=== PATIENT | female | born 1950 | race African-American/Black ===

== ENCOUNTER 2016-10-24 06:16 | Day surgery (SDC) | payer MEDICARE, OTHER ==
[2016-10-24] VITALS (18 sets, daily range): BP systolic 98–140; BP diastolic 60–87; PULSE 76–99; RESP 16–27; Ht 167.6 cm; Wt 56.0 kg
[~2016-10-24] VITALS: Ht 167.6 cm; Wt 56.0 kg
[~2016-10-24 06:16] MED LIST: ATOR20TA17 PO; BACTDS PO; CAR120SR PO; CEPH-443 PO; IBUP-1542 PO; IPRA14.76 IH; NORT25CA PO; OXYC-281 PO; TRIF5TAB7 PO; [UNRECOGNIZED DRUG - OTHER]
[2016-10-24] MEDS ORDERED: TRIF10TA PO (07:11)
[2016-10-24] MEDS ORDERED: LORA1TAB PO (07:14)
[2016-10-24] MEDS ORDERED: NORT25CA PO (07:15)
[2016-10-24] MEDS ORDERED: BENZ2TAB37 PO (07:15)
[2016-10-24] MEDS ORDERED: SER INH (07:16)
[2016-10-24] MEDS ORDERED: TIOT18CA INHALATION (07:16)
[2016-10-24] MEDS ORDERED: ALBU8.5H3 INH (07:16)
--- NOTE | 2016-10-24 08:57 | RADRPT ---
PROCEDURE: XR Chest. CLINICAL INDICATION: Preoperative. TECHNIQUE: Single frontal chest x-ray. COMPARISON: 10/28/2014 FINDINGS: There is a right apical pleural and parenchymal scarring. There is associated mild right-sided trac heal deviation and superior hilar retraction unchanged since previous. Remainder of the lungs are c lear.. .. The cardiomediastinal silhouette is unremarkable. The osseous structures are intact. IMPRESSION: No acute cardiopulmonary disease. Chronic right apical pleural and parenchymal scarring with hilar retraction and right tracheal devia tion unchanged. RPTAT: RR .Darron Tripathi MD, Date Time Electronically viewed and signed by .Darron Tripathi MD, on 10/24/2016 08:57 .L/
[2016-10-24] MEDS ORDERED: SOD CHLORIDE 0.45% 1,000 ML IV SCH (09:30)
[2016-10-24] MEDS ORDERED: DIAZEPAM 5 MG TAB PO SCH (09:30)
[2016-10-24] MEDS ORDERED: FAMOTIDINE 20 MG TAB PO SCH (09:30)
[2016-10-24] MEDS ORDERED: DIPHENHYDRAMINE 50 MG CAP PO SCH (09:30)
[2016-10-24 09:36] LABS: ADD SCAN DIFF NO
[2016-10-24 09:39] LABS: BASOPHILS % 0.4 % (0.0-2.0); EOSINOPHILS # 0.1 10^3/ul (0.0-0.5); EOSINOPHILS % 0.9 % (0.0-7.0); HEMOGLOBIN 12.4 g/dl (12.0-16.0); LYMPHOCYTES # 0.8 10^3/ul (0.8-2.9); LYMPHOCYTES % 15.3 % (15.0-51.0); MEAN CORPUSCULAR HEMOGLOBIN 30.3 pg (29.0-33.0); MEAN CORPUSCULAR HGB CONC 33.5 g/dl (32.0-37.0); MEAN CORPUSCULAR VOLUME 90.5 fl (82.0-101.0); MEAN PLATELET VOLUME 10.8 fl (7.4-10.4); MONOCYTE # 0.6 10^3/ul (0.3-0.9); MONOCYTES % 11.5 % (0.0-11.0); NEUTROPHIL # 3.8 10^3/ul (1.6-7.5); NEUTROPHILS % 71.7 % (39.0-77.0); PLATELET COUNT 235 10^3/UL (140-415); RED BLOOD COUNT 4.09 10^6/ul (4.20-5.40); RED CELL DISTRIBUTION WIDTH 13.9 % (11.5-14.5); WHITE BLOOD COUNT 5.3 10^3/ul (4.8-10.8)
[2016-10-24 09:42] LABS: INR 0.99; PROTIME 13.1 Sec (12.2-14.2)
[2016-10-24 09:43] LABS: PARTIAL THROMBOPLASTIN TIME 34.3 Sec (25.0-35.0)
[2016-10-24 09:49] LABS: CHOL/HDL RATIO 3.5 RATIO
[2016-10-24 09:52] LABS: POTASSIUM 4.4 mmol/L (3.5-5.1)
[2016-10-24] MEDS ORDERED: HEPARIN 1000 UNITS/ML 10 ML INJ ONE (09:52)
[2016-10-24] MEDS ORDERED: LIDOCAINE 1% (MDV) 20 ML INJ ONE (09:52)
[2016-10-24] MEDS ORDERED: IODIXANOL LOCM 100 ML BTL ONE (09:52)
[2016-10-24 09:53] LABS: CALCIUM 10.3 mg/dl (8.4-10.2); CREATININE 0.95 mg/dl (0.44-1.00)
[2016-10-24] MEDS ORDERED: FENTAnyl 50 MCG/ML VIAL ONE (09:53)
[2016-10-24] MEDS ORDERED: NITROGLYCERIN (IC) 100 MCG/ML INJ ONE (09:53)
[2016-10-24] MEDS ORDERED: VERAPAMIL 5 MG INJ ONE (09:53)
[2016-10-24] MEDS ORDERED: MIDAZOLAM 1 MG/ML 2 ML INJ ONE (09:53)
[2016-10-24] MEDS ORDERED: SOD CHLORIDE 0.9% 1,000 ML IV SCH (10:47)
[2016-10-24] MEDS ORDERED: AL HYDROX/MG HYDROX/SIMETH 30 ML CUP PO PRN (11:00)
[2016-10-24] MEDS ORDERED: morphine 2 MG INJ IV PRN (11:00)
[2016-10-24] MEDS ORDERED: ACETAMINOPHEN 325 MG TAB PO PRN (11:00)
[2016-10-24] MEDS ORDERED: ONDANSETRON 4 MG INJ IV PRN (11:00)
--- NOTE | 2016-10-24 21:05 | RADRPT ---
Vent Rate: 78 bpm RR Interval: 0 msec AR Interval: 168 msec QRS Duration: 94 msec QT Interval: 414 msec QTC Interval: 471 msec P-R-T [place]: 74 - 66 - 0 degrees Normal sinus rhythm Right atrial enlargement Left ventricular hypertrophy with repolarization abnormality Abnormal ECG Electronically Signed By: Sarath Montes [id number]
--- NOTE | 2016-10-25 10:37 | CARRPT ---
DATE OF PROCEDURE: 10/24/2016 TYPE OF PROCEDURE: 1. Left heart catheterization. 2. Coronary angiography. 3. Measurement of left ventricular end-diastolic pressure. 4. Moderate conscious sedation x45 minutes. ATTENDING PHYSICIAN: Dr. Sarath Montes. REFERRING PHYSICIAN: Dr. Chaim Castro. INDICATION: Chest pain, in a preoperative patient with an abnormal cardiac stress test. TYPE OF ANESTHESIA: Conscious and local. BRIEF HISTORY: Ms. Greer is a 66-year-old female with a history of hypertension, dyslipidemia, who was found to have a colon mass and underwent a preoperative evaluation including cardiac stress test revealing anterior and inferior ischemia. Given these findings, patient referred for and presents today in order to undergo left heart catheterization to assess for the possibility of significant atherosclerotic coronary artery disease, leading to abnormal cardiac stress test findings. PROCEDURE: After informed consent was obtained, patient was brought to the [facility] where right radial wrist was prepped and draped in the usual sterile fashion. 2 percent lidocaine was infiltrated in the radial nerve in order to achieve adequate local anesthesia. Using the modified Seldinger technique, the radial artery was cannulated and a 6-Moldovan arterial sheath was placed and a 6- [place] JL4 catheter was used to cath the left main coronary ostium. With contrast injection, multiple views of the left coronary artery were obtained. JL3.5 guidewire and a JR4 were used to cath the right coronary ostium. With contrast injection, multiple views of the right coronary ostium were obtained. JR4 was removed through the guidewire and a 6-[place]old[place] pigtail was passed down the ascending aorta across the aortic valve. LV: Left ventricular end-diastolic pressure was measured. The pigtail was pulled back across the aortic valve to assess for a significant gradient, which there was a lot of gradient, and removed. Subsequently, at completion of the procedure, the patient's sheath was removed. TR band was applied. There were no known complications. FINDINGS: 1. Coronary angiography: Right coronary artery proximally is a 3.5 mm vessel, had 30 percent stenosis in its mid portion. The remainder of the right coronary artery is free of any significant focal stenoses. Gives off a 2 mm PDA and a 2 mm posterolateral branch, each with no significant focal stenosis. The left main is 6 mm. Circumflex proximally is a 5 mm vessel, ectatic, has at a bend 20 percent stenosis. The remainder of the circumflex is free of significant focal stenosis. There are 2 mid branching obtuse marginal, 3 mm each, with no significant focal stenoses. The LAD proximally is a 5 mm vessel and has an ostial 40 percent stenosis. In the mid portion of the LAD, there is 20 percent to 30 percent stenosis and several mid branching diagonals, approximately 2 mm with no significant focal stenosis. Does state that on the right coronary artery there is additionally an ostial stenosis in the right coronary artery, approximately 40 percent to 50 percent, but with excellent catheter reflux and no damping of the catheter on cannulation of the ostium. 2. Measurement of left ventricular end-diastolic pressure of 30 with a [id number]-[id number] gradient of 32. TOTAL FLOW TIME: 5.8 minutes. TOTAL CONTRAST: 70 cc. IMPRESSION: 1. Moderate nonobstructive coronary artery disease, probably involving an ostial right coronary artery lesion. 2. Elevated left heart filling pressures. 3. Dxhg-wl-gezynrjd aortic stenosis by ztuj-ei-qooa gradient. RECOMMENDATIONS: In light of procedure findings, would at this time: 1. Maximize medical management. 2. Aggressive risk factor reduction. 3. Patient shows no cardiac contraindication to proceeding to surgery for removal of colon mass at this time. Dictated By: Dustin Sullivan /david/meera /Document#: [id number]
== END 2016-10-24 15:40 | disposition home or self-care (01) ==
LOC: SDS 06:16
PROVIDERS: ATTEND Internal Medicine
DX: I25.10 Atherosclerotic heart disease of native coronary artery without angina pectoris (principal); I10 Essential (primary) hypertension; I34.0 Nonrheumatic mitral (valve) insufficiency; E78.00 Pure hypercholesterolemia, unspecified; J44.9 Chronic obstructive pulmonary disease, unspecified; Z85.118 Personal history of other malignant neoplasm of bronchus and lung; Z92.21 Personal history of antineoplastic chemotherapy; Z92.3 Personal history of irradiation; Z79.82 Long term (current) use of aspirin
CPT/HCPCS: 71010; 80048; 80061; 85025; 85610; 85730; 93005; 93458; C1887; J1644; J2250; J3010; Q9967

== ENCOUNTER 2017-05-16 13:26 | Emergency (ER) | END 2017-05-16 22:16 | disposition home or self-care (01) ==

== ENCOUNTER 2017-06-08 19:07 | Emergency (ER) | END 2017-06-09 01:18 | disposition home or self-care (01) ==

== ENCOUNTER 2017-07-19 14:54 | Emergency (ER) | END 2017-07-19 15:16 | disposition home or self-care (01) ==

== ENCOUNTER 2018-03-11 16:46 | Emergency (ER) | END 2018-03-11 20:39 | disposition home or self-care (01) ==

== ENCOUNTER 2018-07-18 08:17 | Emergency (ER) | payer MEDICARE, OTHER ==
[~2018-07-18] VITALS: Ht 167.6 cm; Wt 60.0 kg
[~2018-07-18 08:17] MED LIST changes: +ALBU8.5H8 INH; +AMOX500C2 PO; +AZIT250T PO; -BACTDS PO; +BENZ2TAB7 PO; -CEPH-443 PO; +GUAI473L22 PO; +HYDR-3980 PO; +HYDR-4011 PO; -IBUP-1542 PO; +IBUP-1561 PO; -IPRA14.76 IH; +LORA1TAB PO; +ONDA4TAB14 PO; -OXYC-281 PO; +PRED20TA PO; +SER INH; +TIOT18CA INHALATION; +TRAM50TA2 PO; +TRIF10TA PO; -TRIF5TAB7 PO; -[UNRECOGNIZED DRUG - OTHER]
[2018-07-18 08:43] VITALS: Ht 167.6 cm; Wt 60.0 kg
[2018-07-18] MEDS ORDERED: morphine 2 MG INJ IV STA ×2 (08:52→09:53)
[2018-07-18] MEDS ORDERED: VANCOMYCIN 1 GM (PMX) 250 ML IVPB ONE (09:00)
[2018-07-18] MEDS ORDERED: SULF1TAB31 PO (12:05)
--- NOTE | 2018-07-18 12:08 | ERD ---
ER Documentation Chief Complaint Chief Complaint RT BREAST PAIN X 1 DAY HPI 68-year-old female presents the emergency department complaining of right breast pain. Patient for the last 1 day has had pain in her right breast. She states that she is developed over the last 24 hours a painful mass in that area. She reports no fevers or chills. She reports pain localized to the area of the mass. She reports no shortness of breath or other complaints associated with the pain. ROS All systems reviewed and are negative except as per history of present illness. Medications Home Meds Active Scripts Sulfamethoxazole/Trimethoprim* (Bactrim Ds* Tablet) 1 Each Tablet, 1 TAB PO BID, #14 TAB Prov:ONIEL PRIETO 07/18/18 Guaifenesin-Codeine Phosphate* (Guaifenesin* AC Cough Syrup) 473 Ml Liquid, 5 ML PO BID PRN for COUGH, #60 ML Prov:ALEJANDRA DICKSON MD 03/11/18 Prednisone* (Prednisone*) 20 Mg Tab, 60 MG PO DAILY for 5 Days, TAB Prov:ALEJANDRA DICKSON MD 03/11/18 Amoxicillin* (Amoxicillin*) 500 Mg Cap, 500 MG PO TID for 7 Days, CAP Prov:PASILABAN,KLAR F 07/19/17 Hydrocodone/Acetaminophen ([place] 5-325 Tablet) 1 Each Tablet, 1 TAB PO Q6H PRN for SEVERE PAIN LEVEL 7-10, #20 TAB Prov:YODIT CARDOSO NP 06/09/17 Ibuprofen* (Motrin*) 400 Mg Tab, 400 MG PO Q6H PRN for PAIN AND OR ELEVATED TEMP, #30 TAB Prov:YODIT CARDOSO NP 06/09/17 Ondansetron (Ondansetron Odt) 4 Mg Tab.rapdis, 4 MG PO Q6H PRN for NAUSEA AND/OR VOMITING, #10 TAB Prov:CHAITANYA EDGAR MD 05/16/17 Hydrocodone/Acetaminophen ([place] 10-325 Tablet) 1 Each Tablet, 1 TAB PO Q6H PRN for PAIN, #7 TAB Prov:CHAITANYA EDGAR MD 05/16/17 Reported Medications Salmeterol Xinafoate (Serevent Diskus) 50 Mcg Blst.w.dev, 5 MCG INH BID 10/24/16 Tiotropium [place]* (Spiriva*) 18 Mcg Cap.w.dev, 1 CAP INHALATION DAILY, #30 CAP 10/24/16 Nortriptyline Hcl* (Nortriptyline Hcl*) 25 Mg Capsule, 25 MG PO HS, CAP 10/24/16 Lorazepam* (Lorazepam*) 1 Mg Tablet, 1 MG PO QAM PRN for ANXIETY, #30 TAB 10/24/16 Trifluoperazine Hcl (Trifluoperazine Hcl) 10 Mg Tablet, 20 MG PO QHS, TAB 10/24/16 Diltiazem Hcl (Diltiazem) 120 Mg Capsr, 120 MG PO DAILY 03/29/12 Discontinued Reported Medications Albuterol Sulfate* (Proair HFA*) 8.5 Gm Hfa.aer.ad, 2 PUFF INH Q6H PRN for WHEEZING AND SOB, #1 INHALER 10/24/16 Benztropine Mesylate* (Benztropine Mesylate*) 2 Mg Tablet, 2 MG PO QHS, TAB 10/24/16 Atorvastatin (Lipitor) 20 Mg Tablet, 20 MG PO DAILY 03/29/12 Discontinued Scripts Azithromycin* (Zithromax*) 250 Mg Tablet, 250 MG PO .ZPACK DIRECTED, #6 TAB TAKE 500 MG (2 TABS) THE FIRST DAY THEN 250 MG (1 TAB) DAYS 2-5 Prov:ALEJANDRA DICKSON MD 03/11/18 Tramadol HCl (Tramadol HCl) 50 Mg Tablet, 50 MG PO Q4 PRN for PAIN, #15 TAB Prov:JIMBO MARINELLI 07/19/17 Allergies Allergies: Coded Allergies: No Known Drug Allergy (Unverified Allergy, Unknown, 07/18/18) PMhx/Soc History of Surgery: No (colonoscopy) Anesthesia Reaction: No Hx Neurological Disorder: No Hx Respiratory Disorders: Yes (COPD, LUNG CA 2010 WITH CHEMO AND RADIATION) Hx Cardiac Disorders: Yes (CARDIOMYOPHATHY) Hx Psychiatric Problems: No Hx Miscellaneous Medical Probl: No Hx Alcohol Use: No Hx Substance Use: No Hx Tobacco Use: No Smoking Status: Never smoker FmHx Noncontributory for chief complaint Physical Exam Vitals Vital Signs Date Temp Pulse Resp B/P (MAP) Pulse Ox O2 O2 Flow FiO2 Time Delivery Rate 07/18/18 84 19 127/78 98 Room Air 10:40 (94) 07/18/18 97.6 108 16 124/70 99 08:43 (88) Physical Exam GENERAL: Thin, chronically ill-appearing but in no acute distress HEENT: Pupils equal, round, and reactive to light. EOMI. There is no scleral icterus. NECK: C-spine is soft and supple, there is no meningismus. There is no cervical lymphadenopathy. LUNGS: Clear to auscultation bilaterally. There are no rales, wheezes or rhonchi. HEART: Regular rate and rhythm, no murmurs, clicks, rubs or gallops. ABDOMEN: Soft, non-tender, non-distended. There are bowel sounds in all four quadrants. No rebound or guarding. EXTREMITIES: There is no peripheral cyanosis or edema. No focal swelling or erythema. NEURO: The patient moves all four extremities with 5/5 strength. Cranial nerves II - XII are intact. Normal gait. Alert and oriented SKIN: There is no apparent rash or petechiae. There is a mass in the right breast which is warm and tender with no fluctuance. No obvious lymphadenopathy is noted. HEME/LYMPHATIC: There is no evidence of excessive bruising or lymphedema. PSYCHIATRIC: The patient does not appear anxious or depressed. Result Diagram: 07/18/18 0915 07/18/18 1044 Results 24 hrs Laboratory Tests Test 07/18/18 09:15 07/18/18 10:44 White Blood Count 14.4 10^3/ul Red Blood Count 4.45 10^6/ul Hemoglobin 12.9 g/dl Hematocrit 40.4 % Mean Corpuscular Volume 90.8 fl Mean Corpuscular Hemoglobin 29.0 pg Mean Corpuscular Hemoglobin Concent 31.9 g/dl Red Cell Distribution Width 14.3 % Platelet Count 277 10^3/UL Mean Platelet Volume 10.4 fl Immature Granulocytes % 0.400 % Neutrophils % 88.3 % Lymphocytes % 3.9 % Monocytes % 7.0 % Eosinophils % 0.2 % Basophils % 0.2 % Nucleated Red Blood Cells % 0.0 /100WBC Immature Granulocytes # 0.060 10^3/ul Neutrophils # 12.7 10^3/ul Lymphocytes # 0.6 10^3/ul Monocytes # 1.0 10^3/ul Eosinophils # 0.0 10^3/ul Basophils # 0.0 10^3/ul Nucleated Red Blood Cells # 0.0 10^3/ul Sodium Level 139 mmol/L Potassium Level 4.1 mmol/L Chloride Level 106 mmol/L Carbon Dioxide Level 26 mmol/L Anion Gap 7 Blood Urea Nitrogen 15 mg/dl Creatinine 0.90 mg/dl Est Glomerular Filtrat Rate mL/min > 60 mL/min Glucose Level 114 mg/dl Calcium Level 9.8 mg/dl Current Medications Medications Dose Sig/Andria Start Time Status Last (Trade) Ordered Route PRN Stop Time Admin Dose Reason Admin Vancomycin 250 ml @ ONCE ONCE 07/18/18 DC 07/18/18 HCl 125 mls/hr IVPB 09:00 09:19 07/18/18 10:59 Morphine 2 mg ONCE STAT 07/18/18 DC 07/18/18 Sulfate IV 08:52 09:11 (morphine) 07/18/18 08:54 Morphine 2 mg ONCE STAT 07/18/18 DC 07/18/18 Sulfate IV 09:53 09:56 (morphine) 07/18/18 09:54 Procedures/MDM Patient was taken to a room, seen and evaluated. Comfort measures were initiated. Diagnostic tests were ordered and reviewed. 3 LEAD RHYTHM STRIP: Normal sinus rhythm without ectopy RADIOLOGY: Reviewed with the radiologist REEVALUATION: 1205: Diagnostic tests were appreciated and discussed with the patient. She remained comfortable and appeared appropriate for outpatient care. MEDICAL DECISION MAKIN-year-old female presents the emergency department with what appears to be a mastitis. Patient shows no clinical evidence of sepsis or systemic concerns. She states that she has had a mammogram within the last year that has been negative for malignancy. Patient overall appears to be clinically nontoxic and seems appropriate for outpatient care with antibiotics for the mastitis. I have educated her on the need for follow-up to further evaluate and make sure that this is not an underlying malignancy after the infection is treated. Departure Diagnosis: Primary Impression: Mastitis Condition: Stable Patient Instructions: Mastitis Additional Instructions: See your doctor for follow-up as discussed. Take a copy of your test results, if appropriate, to this follow-up visit. He will need to have an ultrasound and follow-up test to make sure there is no underlying mass after the infection gets better. See your doctor or return here if your symptoms do not improve as expected. At any time, please return to the emergency department for any change or worsening in her symptoms. ONIEL PRIETO Jul 18, 2018 12:08
[2018-07-18] MEDS ORDERED: IBUP-1542 PO (12:57)
[2018-07-18 13:00] VITALS: BP 125/74; PULSE 101; RESP 20
== END 2018-07-18 13:30 | disposition home or self-care (01) ==
LOC: E/R 08:17
DX: N61.0 Mastitis without abscess (principal)
CPT/HCPCS: 71045; 80048; 85025; J2270; J3370; 36415; 96374; 96375; 96376

== ENCOUNTER 2018-07-26 18:28 | Inpatient (IN) | payer MEDICARE, OTHER ==
[~2018-07-26] VITALS: Ht 167.6 cm; Wt 54.6 kg
[~2018-07-26 18:28] MED LIST changes: -ALBU8.5H8 INH; -ATOR20TA17 PO; -AZIT250T PO; -BENZ2TAB7 PO; +IBUP-1542 PO; +SULF1TAB31 PO; -TRAM50TA2 PO
[2018-07-26] MEDS ORDERED: ONDANSETRON 4 MG INJ IV STA ×2 (22:36→23:45)
[2018-07-26] MEDS ORDERED: HYDROmorphONE 1 MG/ML SYG IV STA (22:36)
[2018-07-26] MEDS ORDERED: HYDROmorphONE 0.5 MG/0.5 ML SYG IV STA (23:52)
[2018-07-27] MEDS ORDERED: ONDANSETRON 4 MG INJ IV STA (03:27)
[2018-07-27] MEDS ORDERED: DICYCLOMINE 20 MG INJ IM ONE (03:30)
--- NOTE | 2018-07-27 04:57 | ERD ---
ER Documentation Chief Complaint Chief Complaint abdominal pain x 3 days. also c/o pain left breast lump HPI This 68-year female with abdominal pain with diarrhea 4-5 episodes per day over the past 3 days patient recently completed a course of antibiotics. Mastitis. She still complains of pain in the left breast lump. Denies fevers chills nausea vomiting. Denies any other current complaints ROS All systems reviewed and are negative except as per history of present illness. Medications Home Meds Active Scripts Ibuprofen* (Ibuprofen*) 600 Mg Tablet, 600 MG PO Q6H PRN for PAIN, #30 TAB Prov:ONIEL PRIETO 07/18/18 Sulfamethoxazole/Trimethoprim* (Bactrim Ds* Tablet) 1 Each Tablet, 1 TAB PO BID, #14 TAB Prov:ONIEL PRIETO 07/18/18 Guaifenesin-Codeine Phosphate* (Guaifenesin* AC Cough Syrup) 473 Ml Liquid, 5 ML PO BID PRN for COUGH, #60 ML Prov:ALEJANDRA DICKSON MD 03/11/18 Prednisone* (Prednisone*) 20 Mg Tab, 60 MG PO DAILY for 5 Days, TAB Prov:ALEJANDRA DICKSON MD 03/11/18 Amoxicillin* (Amoxicillin*) 500 Mg Cap, 500 MG PO TID for 7 Days, CAP Prov:JIMBO MARINELLI 07/19/17 Hydrocodone/Acetaminophen ([place] 5-325 Tablet) 1 Each Tablet, 1 TAB PO Q6H PRN for SEVERE PAIN LEVEL 7-10, #20 TAB Prov:YODIT CARDOSO NP 06/09/17 Ibuprofen* (Motrin*) 400 Mg Tab, 400 MG PO Q6H PRN for PAIN AND OR ELEVATED TEMP, #30 TAB Prov:YODIT CARDOSO NP 06/09/17 Ondansetron (Ondansetron Odt) 4 Mg Tab.rapdis, 4 MG PO Q6H PRN for NAUSEA AND/OR VOMITING, #10 TAB Prov:CHAITANYA EDGAR MD 05/16/17 Hydrocodone/Acetaminophen ([place] 10-325 Tablet) 1 Each Tablet, 1 TAB PO Q6H PRN for PAIN, #7 TAB Prov:CHAITANYA EDGAR MD 05/16/17 Reported Medications Salmeterol Xinafoate (Serevent Diskus) 50 Mcg Blst.w.dev, 5 MCG INH BID 10/24/16 Tiotropium [place]* (Spiriva*) 18 Mcg Cap.w.dev, 1 CAP INHALATION DAILY, #30 CAP 10/24/16 Nortriptyline Hcl* (Nortriptyline Hcl*) 25 Mg Capsule, 25 MG PO HS, CAP 10/24/16 Lorazepam* (Lorazepam*) 1 Mg Tablet, 1 MG PO QAM PRN for ANXIETY, #30 TAB 10/24/16 Trifluoperazine Hcl (Trifluoperazine Hcl) 10 Mg Tablet, 20 MG PO QHS, TAB 10/24/16 Diltiazem Hcl (Diltiazem) 120 Mg Capsr, 120 MG PO DAILY 03/29/12 Allergies Allergies: Coded Allergies: No Known Drug Allergy (Unverified Allergy, Unknown, 07/18/18) PMhx/Soc History of Surgery: No (colonoscopy) Anesthesia Reaction: No Hx Neurological Disorder: No Hx Respiratory Disorders: Yes (COPD, LUNG CA 2010 WITH CHEMO AND RADIATION) Hx Cardiac Disorders: Yes (CARDIOMYOPHATHY) Hx Psychiatric Problems: No Hx Miscellaneous Medical Probl: No Hx Alcohol Use: No Hx Substance Use: No Hx Tobacco Use: No Smoking Status: Former smoker Physical Exam Vitals Vital Signs Date Temp Pulse Resp B/P (MAP) Pulse Ox O2 O2 Flow FiO2 Time Delivery Rate 07/27/18 84 99/65 (76) 97 Room Air 03:00 07/27/18 88 95/61 (72) 95 Room Air 00:30 07/26/18 85 121/71 96 Room Air 23:30 (88) 07/26/18 86 145/74 100 Room Air 22:00 (97) 07/26/18 97.2 95 18 117/75 97 18:35 (89) Physical Exam Const: No acute distress Head: Atraumatic Eyes: Normal Conjunctiva ENT: Normal External Ears, Nose and Mouth. Neck: Full range of motion. No meningismus. Resp: Clear to auscultation bilaterally Cardio: Regular rate and rhythm, no murmurs Abd: Soft, non tender, non distended. Normal bowel sounds Skin: No petechiae or rashes Back: No midline or flank tenderness Ext: No cyanosis, or edema Neur: Awake and alert Psych: Normal Mood and Affect Result Diagram: 07/26/18230607/26/182306 Results 24 hrs Laboratory Tests Test 07/26/18 23:07 White Blood Count 9.2 10^3/ul Red Blood Count 4.05 10^6/ul Hemoglobin 11.7 g/dl Hematocrit 34.9 % Mean Corpuscular Volume 86.2 fl Mean Corpuscular Hemoglobin 28.9 pg Mean Corpuscular Hemoglobin Concent 33.5 g/dl Red Cell Distribution Width 14.1 % Platelet Count 385 10^3/UL Mean Platelet Volume 10.2 fl Immature Granulocytes % 1.400 % Neutrophils % 72.1 % Lymphocytes % 11.1 % Monocytes % 14.3 % Eosinophils % 0.8 % Basophils % 0.3 % Nucleated Red Blood Cells % 0.0 /100WBC Immature Granulocytes # 0.130 10^3/ul Neutrophils # 6.6 10^3/ul Lymphocytes # 1.0 10^3/ul Monocytes # 1.3 10^3/ul Eosinophils # 0.1 10^3/ul Basophils # 0.0 10^3/ul Nucleated Red Blood Cells # 0.0 10^3/ul Prothrombin Time 12.5 Sec Prothrombin Time Ratio 1.0 INR International Normalized Ratio 0.92 Activated Partial Thromboplast Time 33.9 Sec Urine Color STRAW Urine Clarity CLEAR Urine pH 6.0 Urine Specific [place] 1.009 Urine Ketones NEGATIVE mg/dL Urine Nitrite NEGATIVE mg/dL Urine Bilirubin NEGATIVE mg/dL Urine Urobilinogen NEGATIVE mg/dL Urine Leukocyte Esterase NEGATIVE Jhonatan/ul Urine Microscopic RBC 2 /HPF Urine Microscopic WBC 1 /HPF Urine Hemoglobin 1+ mg/dL Urine Glucose NEGATIVE mg/dL Urine Total Protein NEGATIVE mg/dl Sodium Level 129 mmol/L Potassium Level 5.3 mmol/L Chloride Level 93 mmol/L Carbon Dioxide Level 26 mmol/L Anion Gap 10 Blood Urea Nitrogen 15 mg/dl Creatinine 0.83 mg/dl Est Glomerular Filtrat Rate mL/min > 60 mL/min Glucose Level 104 mg/dl Calcium Level 10.5 mg/dl Total Bilirubin 0.5 mg/dl Direct Bilirubin 0.00 mg/dl Indirect Bilirubin 0.5 mg/dl Aspartate Amino Transf (AST/SGOT) 43 IU/L Alanine Aminotransferase (ALT/SGPT) 24 IU/L Alkaline Phosphatase 89 IU/L Total Protein 8.5 g/dl Albumin 4.3 g/dl Globulin 4.20 g/dl Albumin/Globulin Ratio 1.02 Lipase 68 U/L Current Medications Medications Dose Sig/Andria Start Time Status Last (Trade) Ordered Route PRN Stop Time Admin Dose Reason Admin 1 mg ONCE STAT 07/26/18 DC 07/26/18 Hydromorphone IV 22:36 22:38 HCl 07/26/18 22:37 (Dilaudid) Ondansetron 4 mg ONCE STAT 07/26/18 DC 07/26/18 HCl (Zofran IV 22:36 22:38 Inj) 07/26/18 22:37 Ondansetron 4 mg ONCE STAT 07/26/18 DC 07/26/18 HCl (Zofran IV 23:45 23:55 Inj) 07/26/18 23:46 1 mg ONCE STAT 07/26/18 DC 07/26/18 Hydromorphone IV 23:52 23:55 HCl 07/26/18 23:53 (Dilaudid) Dicyclomine 10 mg ONCE ONCE 07/27/18 DC 07/27/18 HCl IM 03:30 03:41 (Bentyl) 07/27/18 03:31 Ondansetron 4 mg ONCE STAT 07/27/18 DC 07/27/18 HCl (Zofran IV 03:27 03:25 Inj) 07/27/18 03:31 Procedures/MDM Medical decision makin-year-old female possible early C. difficile colitis. Started on Flagyl intravenously. Patient will be admitted to on-call Dr. Bhat. Further evaluation and management as dictated by inpatient team. Departure Diagnosis: Primary Impression: Diarrhea Diarrhea type: unspecified type Qualified Codes: R19.7 - Diarrhea, unspecified Condition: SVETLANA Dunbar Jul 27, 2018 04:57
[2018-07-27] MEDS ORDERED: metroNIDAZOLE 500 MG/NS (PMX) 100 ML IVPB ONE (05:00)
[2018-07-27 06:10] VITALS: BP 122/72; PULSE 86; RESP 18
[2018-07-27 06:20] VITALS: Ht 167.6 cm; Wt 54.6 kg
[2018-07-27] MEDS: morphine 2 MG INJ IV PRN ×4 (07:55→21:08)
[2018-07-27 08:34] VITALS: BP 89/54; PULSE 82; RESP 18
[2018-07-27] MEDS: metroNIDAZOLE 500 MG/NS (PMX) 100 ML IVPB SCH ×3 (12:03→23:51)
--- NOTE | 2018-07-27 14:10 | HP ---
Date/Time of Note Date/Time of Note DATE: 07/27/18 TIME: 14:08 Assessment/Plan VTE Prophylaxis Risk score (from [facility])>0 risk: 5 SCD applied (from [facility]): Yes Pharmacological prophylaxis: LMWH Lines/Catheters IV Catheter Type ([facility] [place] Urinary Cath still in place: No Assessment/Plan Hospital Course 1) cholecystitis - IV antibiotics - check HIDA scan - consider GI/surgery consult if HIDA scan is positive Result Diagram: 07/26/18230607/26/182306 Results 24hrs Laboratory Tests Test 07/26/18 23:07 White Blood Count 9.2 # Red Blood Count 4.05 L Hemoglobin 11.7 L Hematocrit 34.9 L Mean Corpuscular Volume 86.2 Mean Corpuscular Hemoglobin 28.9 L Mean Corpuscular Hemoglobin Concent 33.5 Red Cell Distribution Width 14.1 Platelet Count 385 # Mean Platelet Volume 10.2 Immature Granulocytes % 1.400 H Neutrophils % 72.1 Lymphocytes % 11.1 L Monocytes % 14.3 H Eosinophils % 0.8 Basophils % 0.3 Nucleated Red Blood Cells % 0.0 Immature Granulocytes # 0.130 H Neutrophils # 6.6 Lymphocytes # 1.0 Monocytes # 1.3 H Eosinophils # 0.1 Basophils # 0.0 Nucleated Red Blood Cells # 0.0 Prothrombin Time 12.5 Prothrombin Time Ratio 1.0 INR International Normalized Ratio 0.92 Activated Partial Thromboplast Time 33.9 Urine Color STRAW Urine Clarity CLEAR Urine pH 6.0 Urine Specific [place] 1.009 Urine Ketones NEGATIVE Urine Nitrite NEGATIVE Urine Bilirubin NEGATIVE Urine Urobilinogen NEGATIVE Urine Leukocyte Esterase NEGATIVE Urine Microscopic RBC 2 Urine Microscopic WBC 1 Urine Hemoglobin 1+ H Urine Glucose NEGATIVE Urine Total Protein NEGATIVE Sodium Level 129 L Potassium Level 5.3 H Chloride Level 93 L Carbon Dioxide Level 26 Anion Gap 10 Blood Urea Nitrogen 15 Creatinine 0.83 Est Glomerular Filtrat Rate mL/min > 60 Glucose Level 104 Calcium Level 10.5 H Total Bilirubin 0.5 Direct Bilirubin 0.00 Indirect Bilirubin 0.5 Aspartate Amino Transf (AST/SGOT) 43 Alanine Aminotransferase (ALT/SGPT) 24 Alkaline Phosphatase 89 Total Protein 8.5 H Albumin 4.3 Globulin 4.20 H Albumin/Globulin Ratio 1.02 Lipase 68 HPI/ROS Admit Date/Time Admit Date/Time Jul 27, 2018 at 04:55 Hx of Present Illness Patient with history of lung cancer and emphysema comes in complaining of abdominal pain. Patient had CT of abdomen which shows evidence of cholecystitis. PMH/Family/Social Past Medical History Medications Current Medications Morphine Sulfate (morphine) 2 mg Q4H PRN IV SEVERE PAIN LEVEL 7-10 Last administered on 07/27/18at 12:03; Admin Dose 2 MG; Start 07/27/18 at 07:00 Ondansetron HCl (Zofran Inj) 4 mg Q6H PRN IV NAUSEA AND/OR VOMITING; Start 07/27/18 at 07:00 Metronidazole 100 ml @ 100 mls/hr Q6 IVPB Last administered on 07/27/18at 12:03; Admin Dose 100 MLS/HR; Start 07/27/18 at 12:00 Coded Allergies: No Known Drug Allergy (Unverified Allergy, Unknown, 07/18/18) Social History Smoking Status: Former smoker Exam/Review of Systems Vital Signs Vitals Vital Signs Date Temp Pulse Resp B/P (MAP) Pulse Ox O2 O2 Flow FiO2 Time Delivery Rate 07/27/18 99.4 82 18 89/54 (66) 93 Room Air 08:34 Exam Constitutional: well developed Head: normocephalic, atraumatic Neck: supple Respiratory: diminished breath sounds Cardiovascular: regular rate and rhythm Gastrointestinal: soft, non-tender Extremities: normal pulses CYNDIE CAT Jul 27, 2018 14:10
[2018-07-27 15:11] VITALS: BP 108/68; PULSE 93; RESP 18
[2018-07-27 20:30] VITALS: BP 121/67; PULSE 85; RESP 18
[2018-07-28] MEDS: morphine 2 MG INJ IV PRN ×6 (01:34→22:38)
[2018-07-28 02:00] VITALS: BP 95/56; PULSE 87; RESP 19
[2018-07-28] MEDS: HYDROCODONE/APAP (5/325) TAB PO PRN ×2 (02:14→16:50)
[2018-07-28] MEDS: metroNIDAZOLE 500 MG/NS (PMX) 100 ML IVPB SCH ×3 (05:12→17:23)
[2018-07-28] MEDS: DOCUSATE SODIUM 100 MG CAP PO PRN (05:19)
[2018-07-28] MEDS: ONDANSETRON 4 MG INJ IV PRN ×2 (05:22→13:55)
[2018-07-28 08:00] VITALS: BP 96/57; PULSE 88; RESP 18
[2018-07-28 14:00] VITALS: BP 91/53; PULSE 95; RESP 18
--- NOTE | 2018-07-28 17:01 | PN ---
Date/Time of Note Date/Time of Note DATE: 07/28/18 TIME: 16:46 Assessment/Plan VTE Prophylaxis Risk score (from Ns)>0 risk: 5 SCD applied (from Nsg): Yes Lines/Catheters IV Catheter Type (from Nrsg): Saline Lock Urinary Cath still in place: No Assessment/Plan Assessment/Plan 1) cholecystitis - IV antibiotics - check HIDA scan - consider GI/surgery consult if HIDA scan is positive - gi dr Velasco notified - surgery consult Result Diagram: 07/28/1852 07/28/1852 Results 24hrs Laboratory Tests Test 07/28/18 05:52 White Blood Count 8.0 Red Blood Count 3.71 L Hemoglobin 10.7 L Hematocrit 32.3 L Mean Corpuscular Volume 87.1 Mean Corpuscular Hemoglobin 28.8 L Mean Corpuscular Hemoglobin Concent 33.1 Red Cell Distribution Width 14.0 Platelet Count 414 Mean Platelet Volume 9.7 Immature Granulocytes % 1.500 H Neutrophils % 70.1 Lymphocytes % 13.2 L Monocytes % 14.1 H Eosinophils % 0.7 Basophils % 0.4 Nucleated Red Blood Cells % 0.0 Immature Granulocytes # 0.120 H Neutrophils # 5.6 Lymphocytes # 1.1 Monocytes # 1.1 H Eosinophils # 0.1 Basophils # 0.0 Nucleated Red Blood Cells # 0.0 Sodium Level 130 L Potassium Level 4.7 Chloride Level 95 L Carbon Dioxide Level 24 Anion Gap 11 Blood Urea Nitrogen 21 H Creatinine 0.98 Est Glomerular Filtrat Rate mL/min > 60 Glucose Level 96 Calcium Level 9.6 Exam/Review of Systems Exam Vitals Vital Signs Date Temp Pulse Resp B/P (MAP) Pulse Ox O2 O2 Flow FiO2 Time Delivery Rate 07/28/18 97.9 95 18 91/53 (66) 97 Room Air 14:00 Intake and Output 07/27/18 07/27/18 07/28/18 1515:00 23:00 07:00 IntakeIntake Total 400 ml 220 ml 200 ml BalanceBalance 400 ml 220 ml 200 ml Results Results 24hrs Laboratory Tests Test 07/28/18 05:52 White Blood Count 8.0 Red Blood Count 3.71 L Hemoglobin 10.7 L Hematocrit 32.3 L Mean Corpuscular Volume 87.1 Mean Corpuscular Hemoglobin 28.8 L Mean Corpuscular Hemoglobin Concent 33.1 Red Cell Distribution Width 14.0 Platelet Count 414 Mean Platelet Volume 9.7 Immature Granulocytes % 1.500 H Neutrophils % 70.1 Lymphocytes % 13.2 L Monocytes % 14.1 H Eosinophils % 0.7 Basophils % 0.4 Nucleated Red Blood Cells % 0.0 Immature Granulocytes # 0.120 H Neutrophils # 5.6 Lymphocytes # 1.1 Monocytes # 1.1 H Eosinophils # 0.1 Basophils # 0.0 Nucleated Red Blood Cells # 0.0 Sodium Level 130 L Potassium Level 4.7 Chloride Level 95 L Carbon Dioxide Level 24 Anion Gap 11 Blood Urea Nitrogen 21 H Creatinine 0.98 Est Glomerular Filtrat Rate mL/min > 60 Glucose Level 96 Calcium Level 9.6 Medications Medication Current Medications Morphine Sulfate (morphine) 2 mg Q4H PRN IV SEVERE PAIN LEVEL 7-10 Last administered on 07/28/18 13:53; Admin Dose 2 MG; Start 07/27/18 at 07:00 Ondansetron HCl (Zofran Inj) 4 mg Q6H PRN IV NAUSEA AND/OR VOMITING Last administered on 07/28/18 13:55; Admin Dose 4 MG; Start 07/27/18 at 07:00 Metronidazole 100 ml @ 100 mls/hr Q6 IVPB Last administered on 07/28/18 13:23; Admin Dose 100 MLS/HR; Start 07/27/18 at 12:00 Acetaminophen/ Hydrocodone Bitart ([place] (5/325)) 1 tab Q6H PRN PO breakthrough pain Last administered on 07/28/18 02:14; Admin Dose 1 TAB; Start 07/27/18 at 16:00 Docusate Sodium (Colace) 100 mg BID PRN PO CONSTIPATION Last administered on 07/28/18 05:19; Admin Dose 100 MG; Start 07/27/18 at 16:00 CLARI KRISHNA Jul 28, 2018 16:56
[2018-07-28] MEDS: SOD CHLORIDE 0.9% 1,000 ML IV SCH (17:23)
--- NOTE | 2018-07-28 17:46 | CONS ---
Assessment/Plan Assessment/Plan Hospital Course (Demo Recall) 1. Abdominal pain, improved with food: DDX: PUD versus gastritis versus other -GI consult -PPI -Pain management 2. Cholelithiasis with concern for cholecystitis: HIDA negative -No emergent surgical intervention necessary at this time 3.Hyponatremia: -Judicious fluid correction 4. Hyperkalemia: Normalized -Monitor 5. Hypochromic anemia: -Monitor and transfuse as needed Thank you. Patient seen and examined in collaboration with Dr. Rosalino Portillo. Consultation Date/Type/Reason Admit Date/Time Jul 27, 2018 at 04:55 Date of Consultation: Jul 28, 2018 Type of Consult Surgical Reason for Consultation Cholelithiasis, concern for cholecystitis Requesting Provider: CLARI KRISHNA Date/Time of Note DATE: 07/28/18 TIME: 17:35 Hx of Present Illness Zuleyma Greer is 68-year-old woman with past medical history of lung cancer, COPD, cardiomyopathy who presents to the ER with complaints of abdominal pain. Abdominal pain is described as diffuse, most like "labor pains ". Associated symptoms include diarrhea for the past 3 days as well as nausea without vomiting. Alleviating factors include food. She denies fevers, chills, congested cough, chest pain, palpitations, dysuria, hematemesis, hematochezia, melena. Laboratory findings include normal WBC as well as normal LFTs. CT abdomen and pelvis shows cholelithiasis with intrahepatic biliary ductal dilatation and calcification in the jessy hepatis-findings were unchanged from 2018. HIDA scan also noted to be negative. General surgery was asked to evaluate. 12 point review of systems was performed is negative except as stated in HPI. Past Medical History As above Home Meds Active Scripts Ibuprofen* (Ibuprofen*) 600 Mg Tablet, 600 MG PO Q6H PRN for PAIN, #30 TAB Prov:ONIEL PRIETO 07/18/18 Sulfamethoxazole/Trimethoprim* (Bactrim Ds* Tablet) 1 Each Tablet, 1 TAB PO BID, #14 TAB Prov:ONIEL PRIETO 07/18/18 Guaifenesin-Codeine Phosphate* (Guaifenesin* AC Cough Syrup) 473 Ml Liquid, 5 ML PO BID PRN for COUGH, #60 ML Prov:ALEJANDRA DICKSON MD 03/11/18 Prednisone* (Prednisone*) 20 Mg Tab, 60 MG PO DAILY for 5 Days, TAB Prov:ALEJANDRA DICKSON MD 03/11/18 Amoxicillin* (Amoxicillin*) 500 Mg Cap, 500 MG PO TID for 7 Days, CAP Prov:NORASAMANTHAJIMBO Tarah 07/19/17 Hydrocodone/Acetaminophen ([place] 5-325 Tablet) 1 Each Tablet, 1 TAB PO Q6H PRN for SEVERE PAIN LEVEL 7-10, #20 TAB Prov:YODIT CARDOSO NP 06/09/17 Ibuprofen* (Motrin*) 400 Mg Tab, 400 MG PO Q6H PRN for PAIN AND OR ELEVATED TEMP, #30 TAB Prov:YODIT CARDOSO NP 06/09/17 Ondansetron (Ondansetron Odt) 4 Mg Tab.rapdis, 4 MG PO Q6H PRN for NAUSEA AND/OR VOMITING, #10 TAB Prov:CHAITANYA EDGAR MD 05/16/17 Hydrocodone/Acetaminophen ([place] 10-325 Tablet) 1 Each Tablet, 1 TAB PO Q6H PRN for PAIN, #7 TAB Prov:CHAITANYA EDGAR MD 05/16/17 Reported Medications Salmeterol Xinafoate (Serevent Diskus) 50 Mcg Blst.w.dev, 5 MCG INH BID 10/24/16 Tiotropium [place]* (Spiriva*) 18 Mcg Cap.w.dev, 1 CAP INHALATION DAILY, #30 CAP 10/24/16 Nortriptyline Hcl* (Nortriptyline Hcl*) 25 Mg Capsule, 25 MG PO HS, CAP 10/24/16 Lorazepam* (Lorazepam*) 1 Mg Tablet, 1 MG PO QAM PRN for ANXIETY, #30 TAB 10/24/16 Trifluoperazine Hcl (Trifluoperazine Hcl) 10 Mg Tablet, 20 MG PO QHS, TAB 10/24/16 Diltiazem Hcl (Diltiazem) 120 Mg Capsr, 120 MG PO DAILY 03/29/12 Medications Current Medications Morphine Sulfate (morphine) 2 mg Q4H PRN IV SEVERE PAIN LEVEL 7-10 Last administered on 07/28/18at 13:53; Admin Dose 2 MG; Start 07/27/18 at 07:00 Ondansetron HCl (Zofran Inj) 4 mg Q6H PRN IV NAUSEA AND/OR VOMITING Last administered on 07/28/18at 13:55; Admin Dose 4 MG; Start 07/27/18 at 07:00 Metronidazole 100 ml @ 100 mls/hr Q6 IVPB Last administered on 07/28/18at 17:23; Admin Dose 100 MLS/HR; Start 07/27/18 at 12:00 Acetaminophen/ Hydrocodone Bitart ([place] (5/325)) 1 tab Q6H PRN PO breakthrough pain Last administered on 07/28/18at 16:50; Admin Dose 1 TAB; Start 07/27/18 at 16:00 Docusate Sodium (Colace) 100 mg BID PRN PO CONSTIPATION Last administered on 07/28/18at 05:19; Admin Dose 100 MG; Start 07/27/18 at 16:00 Sodium Chloride 1,000 ml @ 50 mls/hr Q20H IV Last administered on 07/28/18at 17:23; Admin Dose 50 MLS/HR; Start 07/28/18 at 17:00 Allergies: Coded Allergies: No Known Drug Allergy (Unverified Allergy, Unknown, 07/18/18) Past Surgical History Previous colonoscopy Left heart cath Family History Significant Family History: no pertinent family hx Social History Smoking Status: Former smoker Exam/Review of Systems Exam Vitals Vital Signs Date Temp Pulse Resp B/P (MAP) Pulse Ox O2 O2 Flow FiO2 Time Delivery Rate 07/28/18 97.9 95 18 91/53 (66) 97 Room Air 14:00 Intake and Output 07/27/18 07/27/18 07/28/18 1515:00 23:00 07:00 IntakeIntake Total 400 ml 220 ml 200 ml BalanceBalance 400 ml 220 ml 200 ml Constitutional: alert, oriented Psych: anxiety Head: normocephalic, atraumatic Eyes: nl conjunctiva, EOMI, nl lids, nl sclera ENMT: nl external ears & nose, nl lips & teeth, mucosa pink and moist Neck: supple, non-tender; No jvd Respiratory: normal air movement; No congested cough Cardiovascular: regular rate and rhythm, nl pulses; No edema Gastrointestinal: soft, tender (Minimal); No distended Genitourinary - Female: nl external genitalia Musculoskeletal: nl extremities to inspection; No joint tenderness, No muscle weakness Extremities: normal pulses; No edema Neurological: nl mental status, nl speech, nl strength Skin: nl turgor; No rash or lesions Lymph: nl lymph nodes Results Result Diagram: 07/28/1855107/28/1852 Results 24hrs Laboratory Tests Test 07/28/18 05:52 White Blood Count 8.0 Red Blood Count 3.71 L Hemoglobin 10.7 L Hematocrit 32.3 L Mean Corpuscular Volume 87.1 Mean Corpuscular Hemoglobin 28.8 L Mean Corpuscular Hemoglobin Concent 33.1 Red Cell Distribution Width 14.0 Platelet Count 414 Mean Platelet Volume 9.7 Immature Granulocytes % 1.500 H Neutrophils % 70.1 Lymphocytes % 13.2 L Monocytes % 14.1 H Eosinophils % 0.7 Basophils % 0.4 Nucleated Red Blood Cells % 0.0 Immature Granulocytes # 0.120 H Neutrophils # 5.6 Lymphocytes # 1.1 Monocytes # 1.1 H Eosinophils # 0.1 Basophils # 0.0 Nucleated Red Blood Cells # 0.0 Sodium Level 130 L Potassium Level 4.7 Chloride Level 95 L Carbon Dioxide Level 24 Anion Gap 11 Blood Urea Nitrogen 21 H Creatinine 0.98 Est Glomerular Filtrat Rate mL/min > 60 Glucose Level 96 Calcium Level 9.6 Medications Medication Current Medications Morphine Sulfate (morphine) 2 mg Q4H PRN IV SEVERE PAIN LEVEL 7-10 Last administered on 07/28/18 13:53; Admin Dose 2 MG; Start 07/27/18 at 07:00 Ondansetron HCl (Zofran Inj) 4 mg Q6H PRN IV NAUSEA AND/OR VOMITING Last administered on 07/28/18 13:55; Admin Dose 4 MG; Start 07/27/18 at 07:00 Metronidazole 100 ml @ 100 mls/hr Q6 IVPB Last administered on 07/28/18 17:23; Admin Dose 100 MLS/HR; Start 07/27/18 at 12:00 Acetaminophen/ Hydrocodone Bitart ([place] (5/325)) 1 tab Q6H PRN PO breakthrough pain Last administered on 07/28/18 16:50; Admin Dose 1 TAB; Start 07/27/18 at 16:00 Docusate Sodium (Colace) 100 mg BID PRN PO CONSTIPATION Last administered on 05:19; Admin Dose 100 MG; Start 07/27/18 at 16:00 Sodium Chloride 1,000 ml @ 50 mls/hr Q20H IV Last administered on 07/28/18at 17:23; Admin Dose 50 MLS/HR; Start 07/28/18 at 17:00 ROC MANNING NP Jul 28, 2018 17:46
--- NOTE | 2018-07-28 18:47 | CONS ---
DATE OF ADMISSION: 07/27/2018 DATE OF CONSULTATION: TYPE OF CONSULTATION: Gastroenterology. From Beth Velasco MD, to Christal Chaudhari MD and France Hutton MD. HISTORY OF PRESENT ILLNESS: Zuleyma Greer is a 68-year-old female with a history of lung cancer, COPD, cardiomyopathy, presented to the ER with abdominal pain since today associated with nausea and vomiting. She also had some diarrhea. No fever, no chills, no chest pain, no shortness of breath, n o GI bleeding, no weight loss. She had a CAT scan done which showed probably stone in the cystic teresa t or calcification of the hepatic artery. HIDA scan was negative. GI consult was called in. PAST MEDICAL HISTORY: As described. HOME MEDICATIONS: Reviewed. She is on: 1. Diltiazem. 2. Bronchodilator. 3. Ibuprofen. 4. [place]. MEDICATIONS IN THE HOSPITAL: Reviewed. She is on: 1. Flagyl. 2. Docusate sodium. 3. Zofran. PAST MEDICAL HISTORY: Previous colonoscopy, left heart catheterization. PHYSICAL EXAMINATION: GENERAL: Alert, awake, not in distress. VITAL SIGNS: Stable. HEENT: Unremarkable. NECK: Supple. No thyromegaly, no lymphadenopathy. CARDIOVASCULAR: No murmur, gallop or click. LUNGS: Clear. ABDOMEN: Benign. EXTREMITIES: No edema. CENTRAL NERVOUS SYSTEM: Grossly within normal limits. IMPRESSION: 1. Gallstone. 2. Abdominal pain. 3. Anemia. 4. Hypercalcemia. PLAN: To send stool for C. difficile toxin. Continue with PPI. We will stop the Colace. We will o btain MRCP to find out the cause of intrahepatic biliary dilatation. Dictated By: BETH VELASCO MD PJ/NTS Conf#: [id number] DID#: [id number] CC: CHRISTAL CHAUDHARI MD;*EndCC*
[2018-07-28 20:10] VITALS: BP 99/56; PULSE 91; RESP 18
[2018-07-29] MEDS: metroNIDAZOLE 500 MG/NS (PMX) 100 ML IVPB SCH ×4 (00:16→18:03)
[2018-07-29 02:10] VITALS: BP 100/60; PULSE 90; RESP 18
[2018-07-29] MEDS: morphine 2 MG INJ IV PRN ×5 (02:39→21:07)
[2018-07-29 07:54] VITALS: BP 102/60; PULSE 70; RESP 18
[2018-07-29] MEDS: SOD CHLORIDE 0.9% 1,000 ML IV SCH ×2 (12:06→18:09)
--- NOTE | 2018-07-29 12:25 | PN ---
Date/Time of Note Date/Time of Note DATE: 07/29/18 TIME: 12:23 Assessment/Plan Lines/Catheters IV Catheter Type (from [facility]): Saline Lock Cruz in Place (from [facility]): No Assessment/Plan Chief Complaint/Hosp Course 1. Abdominal pain, improved with food: DDX: PUD versus gastritis versus other; persistent -Per GI -PPI -Pain management 2. Cholelithiasis: HIDA negative; MRCP noted without choledocholithiasis or cholecystitis -No emergent surgical intervention necessary at this time 3.Hyponatremia: -Judicious fluid correction 4. Hyperkalemia: Normalized -Monitor 5. Hypochromic anemia: -Monitor and transfuse as needed Thank you. Patient seen and examined in collaboration with Dr. Rosalino Portillo. Subjective 24 Hr Interval Summary Continues to have constant abdominal pain. MRCP noted. No fevers, chills, sob, congested cough, cp, palpitations, penaloza, dizziness, nausea, vomiting, diarrhea, dysuria. Exam/Review of Systems Vital Signs Vitals Vital Signs Date Temp Pulse Resp B/P (MAP) Pulse Ox O2 O2 Flow FiO2 Time Delivery Rate 07/29/18 98.2 70 18 102/60 97 Room Air 07:54 (74) Intake and Output 07/28/18 07/28/18 07/29/18 1515:00 23:00 07:00 IntakeIntake Total 100 ml 700 ml 1650 ml BalanceBalance 100 ml 700 ml 1650 ml Exam Free Text/Dictation Constitutional: alert, oriented Psych: anxiety Head: normocephalic, atraumatic Eyes: nl conjunctiva, EOMI, nl lids, nl sclera ENMT: nl external ears & nose, nl lips & teeth, mucosa pink and moist Neck: supple, non-tender; No jvd Respiratory: normal air movement; No congested cough Cardiovascular: regular rate and rhythm, nl pulses; No edema Gastrointestinal: soft, tender (Minimal); No distended Genitourinary - Female: nl external genitalia Musculoskeletal: nl extremities to inspection; No joint tenderness, No muscle weakness Extremities: normal pulses; No edema Neurological: nl mental status, nl speech, nl strength Skin: nl turgor; No rash or lesions Lymph: nl lymph nodes Results Result Diagram: 07/28/18 0552 07/28/18 0552 ROC MANNING NP Jul 29, 2018 12:24
[2018-07-29 14:00] VITALS: BP 102/60; PULSE 69; RESP 19
--- NOTE | 2018-07-29 15:32 | PN ---
Date/Time of Note Date/Time of Note DATE: 07/29/18 TIME: 15:28 Assessment/Plan VTE Prophylaxis Risk score (from Nsg)>0 risk: 5 SCD applied (from Nsg): Yes Lines/Catheters IV Catheter Type (from Nrsg): Saline Lock Urinary Cath still in place: No Assessment/Plan Assessment/Plan 1) cholecystitis - IV antibiotics - HIDA scan - cholelithiasis - gi dr Velasco notified - surgery consult 2.Hyponatreamia - Po FLUID 1800CC/24 HRS - ns 70 cc/hr - AM bmp 3. Anemia- Hgb stable Result Diagram: 07/28/18 0552 07/28/18 0552 Subjective 24 Hr Interval Summary Constitutional: no complaints Eyes: no complaints ENT: no complaints Respiratory: no complaints Cardiovascular: no complaints Gastrointestinal: pain Genitourinary: no complaints Musculoskeletal: no complaints Skin: no complaints Neurologic: no complaints Endocrine: no complaints Psychological: nl mood/affect Immunologic: no complaints Exam/Review of Systems Exam Vitals Vital Signs Date Temp Pulse Resp B/P (MAP) Pulse Ox O2 O2 Flow FiO2 Time Delivery Rate 07/29/18 97.9 69 19 102/60 96 Room Air 14:00 (74) Intake and Output 07/28/18 07/28/18 07/29/18 1515:00 23:00 07:00 IntakeIntake Total 100 ml 700 ml 1650 ml BalanceBalance 100 ml 700 ml 1650 ml Constitutional: alert, well developed Psych: nl mood/affect Eyes: nl lids, nl sclera ENMT: nl external ears & nose Neck: non-tender Respiratory: clear to auscultation Cardiovascular: nl pulses, other Gastrointestinal: soft Medications Medication Current Medications Morphine Sulfate (morphine) 2 mg Q4H PRN IV SEVERE PAIN LEVEL 7-10 Last administered on 07/29/18at 12:47; Admin Dose 2 MG; Start 07/27/18 at 07:00 Ondansetron HCl (Zofran Inj) 4 mg Q6H PRN IV NAUSEA AND/OR VOMITING Last administered on 07/28/18at 13:55; Admin Dose 4 MG; Start 07/27/18 at 07:00 Metronidazole 100 ml @ 100 mls/hr Q6 IVPB Last administered on 07/29/18at 11:24; Admin Dose 100 MLS/HR; Start 07/27/18 at 12:00 Acetaminophen/ Hydrocodone Bitart ([place] (5/325)) 1 tab Q6H PRN PO breakthrough pain Last administered on 07/28/18at 16:50; Admin Dose 1 TAB; Start 07/27/18 at 16:00 Docusate Sodium (Colace) 100 mg BID PRN PO CONSTIPATION Last administered on 07/28/18at 05:19; Admin Dose 100 MG; Start 07/27/18 at 16:00 Sodium Chloride 1,000 ml @ 50 mls/hr Q20H IV Last administered on 07/28/18at 17:23; Admin Dose 50 MLS/HR; Start 07/28/18 at 17:00 CLARI KRISHNA Jul 29, 2018 15:32
--- NOTE | 2018-07-29 16:32 | CONS ---
Assessment/Plan Assessment/Plan Assessment/Plan (Daily) IMPRESSION: 1. Gallstone. 2. Abdominal pain. 3. Anemia. 4. Hypercalcemia. Plan MRCP is negative Continue with PPI and Reglan Consultation Date/Type/Reason Admit Date/Time Jul 27, 2018 at 04:55 Initial Consult Date 07/28/18 Requesting Provider: CLARI KRISHNA Date/Time of Note DATE: 07/29/18 TIME: 16:31 24 HR Interval Summary Free Text/Dictation Planes of diffuse abdominal pain No diarrhea no vomiting Exam/Review of Systems Exam Vitals Vital Signs Date Temp Pulse Resp B/P (MAP) Pulse Ox O2 O2 Flow FiO2 Time Delivery Rate 07/29/18 97.9 69 19 102/60 96 Room Air 14:00 (74) Intake and Output 07/28/18 07/28/18 07/29/18 1515:00 23:00 07:00 IntakeIntake Total 100 ml 700 ml 1650 ml BalanceBalance 100 ml 700 ml 1650 ml Constitutional: alert, oriented, well developed Psych: no complaints, nl mood/affect Eyes: nl conjunctiva, EOMI, nl lids, nl sclera, PERRL Neck: supple, non-tender Gastrointestinal: tender Extremities: normal pulses Neurological: CAMERA OPERATOR II-XII intact Results Result Diagram: 07/28/18 0552 07/28/1852 Medications Medication Current Medications Morphine Sulfate (morphine) 2 mg Q4H PRN IV SEVERE PAIN LEVEL 7-10 Last a dministered on 07/29/18at 12:47; Admin Dose 2 MG; Start 07/27/18 at 07:00 Ondansetron HCl (Zofran Inj) 4 mg Q6H PRN IV NAUSEA AND/OR VOMITING Last administered on 07/28/18at 13:55; Admin Dose 4 MG; Start 07/27/18 at 07:00 Metronidazole 100 ml @ 100 mls/hr Q6 IVPB Last administered on 07/29/18 11:2 4; Admin Dose 100 MLS/HR; Start 07/27/18 at 12:00 Acetaminophen/ Hydrocodone Bitart ([place] (5/325)) 1 tab Q6H PRN PO breakthrough pain Last administered on 07/28/18at 16:50; Admin Dose 1 TAB; Start 07/27/18 at 16:00 Docusate Sodium (Colace) 100 mg BID PRN PO CONSTIPATION Last administered on 07/28/18at 05:19; Admin Dose 100 MG; Start 07/27/18 at 16:00 Sodium Chloride 1,000 ml @ 60 mls/hr [id number] IV Last administered on 07/28/18at 17:23; Admin Dose 50 MLS/HR; Start 07/28/18 at 17:00 BETH ABBASI MD Jul 29, 2018 16:32
[2018-07-29] MEDS: PANTOPRAZOLE 40 MG INJ IV SCH (18:03)
[2018-07-29 20:05] VITALS: BP 112/58; PULSE 87; RESP 18
[2018-07-30] MEDS: metroNIDAZOLE 500 MG/NS (PMX) 100 ML IVPB SCH ×5 (01:05→23:32)
[2018-07-30] MEDS: morphine 2 MG INJ IV PRN ×6 (01:07→21:10)
[2018-07-30 02:06] VITALS: BP 111/61; PULSE 77; RESP 18
[2018-07-30] MEDS: PANTOPRAZOLE 40 MG INJ IV SCH ×2 (05:09→17:10)
[2018-07-30 07:48] VITALS: BP 102/59; PULSE 60; RESP 18
[2018-07-30 14:36] VITALS: BP 109/56; PULSE 79; RESP 19
--- NOTE | 2018-07-30 15:18 | PN ---
Date/Time of Note Date/Time of Note DATE: 07/30/18 TIME: 15:16 Assessment/Plan Lines/Catheters IV Catheter Type (from [facility]): Saline Lock [facility] in Place (from [facility]): No Assessment/Plan Chief Complaint/Hosp Course 1. Abdominal pain, improved with food: DDX: PUD versus gastritis versus other; intermittent -Management per GI -PPI -Pain management 2. Cholelithiasis: HIDA negative; MRCP noted without choledocholithiasis or cholecystitis -No emergent surgical intervention necessary at this time 3.Hyponatremia: -Judicious fluid correction 4. Hyperkalemia: Normalized -Monitor 5. Hypochromic anemia: -Monitor and transfuse as needed Thank you. Patient seen and examined in collaboration with Dr. Rosalino Portillo. Subjective 24 Hr Interval Summary Continues to complain of abdominal pain. Tolerating diet. No fevers, chills, s ob, congested cough, cp, palpitations, penaloza, dizziness, nausea, vomiting, diarrhea, dysuria. Exam/Review of Systems Vital Signs Vitals Vital Signs Date Temp Pulse Resp B/P (MAP) Pulse Ox O2 O2 Flow FiO2 Time Delivery Rate 07/30/18 97.9 60 18 102/59 96 Room Air 07:48 (73) Intake and Output 07/29/18 07/29/18 07/30/18 1414:59 22:59 06:59 IntakeIntake Total 325 ml 1775 ml BalanceBalance 325 ml 1775 ml Exam Free Text/Dictation Constitutional: alert, oriented Psych: anxiety Head: normocephalic, atraumatic Eyes: nl conjunctiva, EOMI, nl lids, nl sclera ENMT: nl external ears & nose, nl lips & teeth, mucosa pink and moist Neck: supple, non-tender; No jvd Respiratory: normal air movement; No congested cough Cardiovascular: regular rate and rhythm, nl pulses; No edema Gastrointestinal: soft, tender (Minimal); No distended Genitourinary - Female: nl external genitalia Musculoskeletal: nl extremities to inspection; No joint tenderness, No muscle weakness Extremities: normal pulses; No edema Neurological: nl mental status, nl speech, nl strength Skin: nl turgor; No rash or lesions Lymph: nl lymph nodes Results Result Diagram: 07/30/1833 07/30/18 0833 ROC MANNING NP Jul 30, 2018 15:18
--- NOTE | 2018-07-30 16:51 | CONS ---
Assessment/Plan Assessment/Plan Assessment/Plan (Daily) IMPRESSION: 1. Gallstone. 2. Abdominal pain. On palpation abdomen is totally benign 3. Anemia. 4. Hypercalcemia. Plan MRCP is negative Continue with PPI and Reglan We will start patient on Librax Consultation Date/Type/Reason Admit Date/Time Jul 27, 2018 at 04:55 Initial Consult Date 07/28/18 Requesting Provider: CLARI KRISHNA Date/Time of Note DATE: 07/30/18 TIME: 16:50 24 HR Interval Summary Free Text/Dictation Some complaints of lower abdominal pain Exam/Review of Systems Exam Vitals Vital Signs Date Temp Pulse Resp B/P (MAP) Pulse Ox O2 O2 Flow FiO2 Time Delivery Rate 07/30/18 97.9 79 19 109/56 94 Room Air 14:36 (73) Intake and Output 07/29/18 07/29/18 07/30/18 1515:00 23:00 07:00 IntakeIntake Total 325 ml 1775 ml BalanceBalance 325 ml 1775 ml Constitutional: alert, oriented, well developed Psych: no complaints, nl mood/affect Head: normocephalic, atraumatic Eyes: nl conjunctiva, EOMI, nl lids, nl sclera, PERRL ENMT: nl external ears & nose, nl lips & teeth, nl nasal mucosa & septum Neck: supple, non-tender Respiratory: clear to auscultation, normal air movement Cardiovascular: regular rate and rhythm, nl pulses Gastrointestinal: soft, nl liver, spleen, non-tender Musculoskeletal: nl extremities to inspection, nl gait and stance Extremities: normal pulses Neurological: [employer] II-XII intact, nl mental status, nl speech, nl strength Skin: nl turgor; No rash or lesions Lymph: nl lymph nodes Results Result Diagram: 07/30/18 0833 07/30/18 0833 Results 24hrs Laboratory Tests Test 07/30/18 08:33 White Blood Count 5.1 # Red Blood Count 3.57 L Hemoglobin 10.2 L Hematocrit 31.6 L Mean Corpuscular Volume 88.5 Mean Corpuscular Hemoglobin 28.6 L Mean Corpuscular Hemoglobin Concent 32.3 Red Cell Distribution Width 14.6 H Platelet Count 413 Mean Platelet Volume 9.3 Immature Granulocytes % 1.000 H Neutrophils % 60.3 Lymphocytes % 21.2 Monocytes % 14.9 H Eosinophils % 2.0 Basophils % 0.6 Nucleated Red Blood Cells % 0.0 Immature Granulocytes # 0.050 H Neutrophils # 3.1 Lymphocytes # 1.1 Monocytes # 0.8 Eosinophils # 0.1 Basophils # 0.0 Nucleated Red Blood Cells # 0.0 Sodium Level 137 Potassium Level 4.6 Chloride Level 103 Carbon Dioxide Level 28 Anion Gap 6 Blood Urea Nitrogen 12 Creatinine 0.81 Est Glomerular Filtrat Rate mL/min > 60 Glucose Level 90 Calcium Level 9.5 Medications Medication Current Medications Morphine Sulfate (morphine) 2 mg Q4H PRN IV SEVERE PAIN LEVEL 7-10 Last administered on 07/30/18 13:07; Admin Dose 2 MG; Start 07/27/18 at 07:00 Ondansetron HCl (Zofran Inj) 4 mg Q6H PRN IV NAUSEA AND/OR VOMITING Last administered on 07/28/18 13:55; Admin Dose 4 MG; Start 07/27/18 at 07:00 Metronidazole 100 ml @ 100 mls/hr Q6 IVPB Last administered on 07/30/18 12:31; Admin Dose 100 MLS/HR; Start 07/27/18 at 12:00 Acetaminophen/ Hydrocodone Bitart ([place] (5/325)) 1 tab Q6H PRN PO breakthrough pain Last administered on 07/28/18 16:50; Admin Dose 1 TAB; Start 07/27/18 at 16:00 Docusate Sodium (Colace) 100 mg BID PRN PO CONSTIPATION Last administered on 07/28/18 05:19; Admin Dose 100 MG; Start 07/27/18 at 16:00 Sodium Chloride 1,000 ml @ 60 mls/hr [id number] IV Last administered on 07/29/18 18:09; Admin Dose 60 MLS/HR; Start 07/28/18 at 17:00 Pantoprazole (Protonix Iv) 40 mg BID@06,18 IV Last administered on 07/30/18 05:09; Admin Dose 40 MG; Start 07/29/18 at 18:00 BETH ABBASI MD Jul 30, 2018 16:51
[2018-07-30 20:22] VITALS: BP 112/60; PULSE 95; RESP 20
--- NOTE | 2018-07-30 21:27 | PN ---
Date/Time of Note Date/Time of Note DATE: 07/30/18 TIME: 21:27 Assessment/Plan VTE Prophylaxis Risk score (from Ns)>0 risk: 4 SCD applied (from Ns): Yes Lines/Catheters IV Catheter Type (from Nrs): [place] Urinary Cath still in place: No Assessment/Plan Assessment/Plan 1) cholecystitis - IV antibiotics - HIDA scan - cholelithiasis - gi dr Velasco notified - surgery consult 2.Hyponatreamia - Po FLUID 1800CC/24 HRS - ns 70 cc/hr - AM bmp 3. Anemia- Hgb stable Result Diagram: 07/30/18 0833 07/30/18 0833 Results 24hrs Laboratory Tests Test 07/30/18 08:33 White Blood Count 5.1 # Red Blood Count 3.57 L Hemoglobin 10.2 L Hematocrit 31.6 L Mean Corpuscular Volume 88.5 Mean Corpuscular Hemoglobin 28.6 L Mean Corpuscular Hemoglobin Concent 32.3 Red Cell Distribution Width 14.6 H Platelet Count 413 Mean Platelet Volume 9.3 Immature Granulocytes % 1.000 H Neutrophils % 60.3 Lymphocytes % 21.2 Monocytes % 14.9 H Eosinophils % 2.0 Basophils % 0.6 Nucleated Red Blood Cells % 0.0 Immature Granulocytes # 0.050 H Neutrophils # 3.1 Lymphocytes # 1.1 Monocytes # 0.8 Eosinophils # 0.1 Basophils # 0.0 Nucleated Red Blood Cells # 0.0 Sodium Level 137 Potassium Level 4.6 Chloride Level 103 Carbon Dioxide Level 28 Anion Gap 6 Blood Urea Nitrogen 12 Creatinine 0.81 Est Glomerular Filtrat Rate mL/min > 60 Glucose Level 90 Calcium Level 9.5 Exam/Review of Systems Exam Vitals Vital Signs Date Temp Pulse Resp B/P (MAP) Pulse Ox O2 O2 Flow FiO2 Time Delivery Rate 07/30/18 98.6 95 20 112/60 96 20:22 (77) 07/30/18 Room Air 14:36 Intake and Output 07/29/18 07/29/18 07/30/18 1414:59 22:59 06:59 IntakeIntake Total 325 ml 1775 ml BalanceBalance 325 ml 1775 ml Results Results 24hrs Laboratory Tests Test 07/30/18 08:33 White Blood Count 5.1 # Red Blood Count 3.57 L Hemoglobin 10.2 L Hematocrit 31.6 L Mean Corpuscular Volume 88.5 Mean Corpuscular Hemoglobin 28.6 L Mean Corpuscular Hemoglobin Concent 32.3 Red Cell Distribution Width 14.6 H Platelet Count 413 Mean Platelet Volume 9.3 Immature Granulocytes % 1.000 H Neutrophils % 60.3 Lymphocytes % 21.2 Monocytes % 14.9 H Eosinophils % 2.0 Basophils % 0.6 Nucleated Red Blood Cells % 0.0 Immature Granulocytes # 0.050 H Neutrophils # 3.1 Lymphocytes # 1.1 Monocytes # 0.8 Eosinophils # 0.1 Basophils # 0.0 Nucleated Red Blood Cells # 0.0 Sodium Level 137 Potassium Level 4.6 Chloride Level 103 Carbon Dioxide Level 28 Anion Gap 6 Blood Urea Nitrogen 12 Creatinine 0.81 Est Glomerular Filtrat Rate mL/min > 60 Glucose Level 90 Calcium Level 9.5 Medications Medication Current Medications Morphine Sulfate (morphine) 2 mg Q4H PRN IV SEVERE PAIN LEVEL 7-10 Last administered on 07/30/18 21:10; Admin Dose 2 MG; Start 07/27/18 at 07:00 Ondansetron HCl (Zofran Inj) 4 mg Q6H PRN IV NAUSEA AND/OR VOMITING Last admin istered on 07/28/18 13:55; Admin Dose 4 MG; Start 07/27/18 at 07:00 Metronidazole 100 ml @ 100 mls/hr Q6 IVPB Last administered on 07/30/18 17:10; Admin Dose 100 MLS/HR; Start 07/27/18 at 12:00 Acetaminophen/ Hydrocodone Bitart ([place] (5/325)) 1 tab Q6H PRN PO breakthrough pain Last administered on 07/28/18 16:50; Admin Dose 1 TAB; Start 07/27/18 at 16:00 Docusate Sodium (Colace) 100 mg BID PRN PO CONSTIPATION Last administered on 07/28/18 05:19; Admin Dose 100 MG; Start 07/27/18 at 16:00 Sodium Chloride 1,000 ml @ 60 mls/hr [id number] IV Last administered on 07/29/18 18:09; Admin Dose 60 MLS/HR; Start 07/28/18 at 17:00 Pantoprazole (Protonix Iv) 40 mg BID@06,18 IV Last administered on 07/30/18 17:10; Admin Dose 40 MG; Start 07/29/18 at 18:00 CLARI KRISHNA Jul 30, 2018 21:27
[2018-07-30] MEDS: SOD CHLORIDE 0.9% 1,000 ML IV SCH (23:28)
[2018-07-31] MEDS: morphine 2 MG INJ IV PRN ×5 (01:15→20:29)
[2018-07-31 02:13] VITALS: BP 120/65; PULSE 83; RESP 16
[2018-07-31] MEDS: metroNIDAZOLE 500 MG/NS (PMX) 100 ML IVPB SCH ×4 (05:32→23:57)
[2018-07-31] MEDS: PANTOPRAZOLE 40 MG INJ IV SCH ×2 (05:32→17:53)
[2018-07-31 08:09] VITALS: BP 125/68; PULSE 88; RESP 18
--- NOTE | 2018-07-31 08:58 | CONS ---
Assessment/Plan Assessment/Plan Hospital Course (Demo Recall) 68 yo female presents with abdominal pain Interval hx: Pt C/O mild diffuse abdominal pain through all quadrants of abdomen improved with morphine. Pt taking morphine q 4 hours for abdominal pain. She denies diarrhea. Denies specific epigastric pain. States the pain is everywhere in her stomach and describes as labor pain like or cramping. At times it is alleviated with warm food but most of time food does not alleviate the pain. She sometimes has nausea although not at this time. The pain is not affected by palpitation of the abdomen. IMPRESSION: 1. Cholelithiasis with possible cholecystitis -MRCP negative -HIDA unremarkable 2. Abdominal pain. -improved 3. Anemia, acute -will monitor closely 4. Hypercalcemia. 5. Multiple cysts on liver noted on MRCP 6. Diarrhea-resolved Plan LFTs in am Continue with PPI and Reglan Start librax one capsule BID (with meals), if it doesn't help will increase dosage. Pt examined and plan of care discussed with Dr. Velasco Consultation Date/Type/Reason Admit Date/Time Jul 27, 2018 at 04:55 Initial Consult Date 07/28/18 Requesting Provider: CLARI KRISHNA Date/Time of Note DATE: 07/31/18 TIME: 08:48 Exam/Review of Systems Exam Vitals Vital Signs Date Temp Pulse Resp B/P (MAP) Pulse Ox O2 O2 Flow FiO2 Time Delivery Rate 07/31/18 98.1 88 18 125/68 95 Room Air 08:09 (87) Intake and Output 07/30/18 07/30/18 07/31/18 1515:00 23:00 07:00 IntakeIntake Total 560 ml 1580 ml 1660 ml BalanceBalance 560 ml 1580 ml 1660 ml Constitutional: alert, oriented Psych: other (weepy) Eyes: PERRL Respiratory: clear to auscultation Cardiovascular: regular rate and rhythm Gastrointestinal: soft, non-tender, bowel sounds Musculoskeletal: nl gait and stance Neurological: nl mental status Results Result Diagram: 07/30/1833 07/30/18 08 Medications Medication Current Medications Morphine Sulfate (morphine) 2 mg Q4H PRN IV SEVERE PAIN LEVEL 7-10 Last administered on 07/31/18at 05:32; Admin Dose 2 MG; Start 07/27/18 at 07:00 Ondansetron HCl (Zofran Inj) 4 mg Q6H PRN IV NAUSEA AND/OR VOMITING Last administered on 07/28/18 13:55; Admin Dose 4 MG; Start 07/27/18 at 07:00 Metronidazole 100 ml @ 100 mls/hr Q6 IVPB Last administered on 07/31/18 05:32; Admin Dose 100 MLS/HR; Start 07/27/18 at 12:00 Acetaminophen/ Hydrocodone Bitart ([place] (5/325)) 1 tab Q6H PRN PO breakthrough pain Last administered on 07/28/18 16:50; Admin Dose 1 TAB; Start 07/27/18 at 16:00 Docusate Sodium (Colace) 100 mg BID PRN PO CONSTIPATION Last administered on 07/28/18 05:19; Admin Dose 100 MG; Start 07/27/18 at 16:00 Sodium Chloride 1,000 ml @ 60 mls/hr [id number] IV Last administered on 07/30/18 23:28; Admin Dose 60 MLS/HR; Start 07/28/18 at 17:00 Pantoprazole (Protonix Iv) 40 mg BID@06,18 IV Last administered on 07/31/18 05:32; Admin Dose 40 MG; Start 07/29/18 at 18:00 GANGA ANSARI Jul 31, 2018 08:58
--- NOTE | 2018-07-31 11:30 | PN ---
Date/Time of Note Date/Time of Note DATE: 07/31/18 TIME: 11:28 Assessment/Plan Lines/Catheters IV [facility] Type (from [facility] Peripheral IV Cruz in Place (from [facility]): No Assessment/Plan Chief Complaint/Hosp Course 1. Abdominal pain: DDX: PUD versus gastritis versus other; intermittent -per GI > started on antispasmodics -PPI -Pain management 2. Cholelithiasis: HIDA negative; MRCP noted without choledocholithiasis or cholecystitis -No emergent surgical intervention necessary at this time 3.Hyponatremia:resolved 4. Hyperkalemia: Normalized 5. Hypochromic anemia: -Monitor and transfuse as needed Thank you. Patient seen and examined in collaboration with Dr. Rosalino Portillo. Subjective 24 Hr Interval Summary Started on antispasmodics by gi. No fevers, chills, sob, congested cough, cp, palpitations, penaloza, dizziness, n/v/d/dysuria. Exam/Review of Systems Vital Signs Vitals Vital Signs Date Temp Pulse Resp B/P (MAP) Pulse Ox O2 O2 Flow FiO2 Time Delivery Rate 07/31/18 98.1 88 18 125/68 95 Room Air 08:09 (87) Intake and Output 07/30/18 07/30/18 07/31/18 1515:00 23:00 07:00 IntakeIntake Total 560 ml 1580 ml 1660 ml BalanceBalance 560 ml 1580 ml 1660 ml Exam Free Text/Dictation Constitutional: alert, oriented Psych: anxiety Head: normocephalic, atraumatic Eyes: nl conjunctiva, EOMI, nl lids, nl sclera ENMT: nl external ears & nose, nl lips & teeth, mucosa pink and moist Neck: supple, non-tender; No jvd Respiratory: normal air movement; No congested cough Cardiovascular: regular rate and rhythm, nl pulses; No edema Gastrointestinal: soft, tender (Minimal); No distended Genitourinary - Female: nl external genitalia Musculoskeletal: nl extremities to inspection; No joint tenderness, No muscle weakness Extremities: normal pulses; No edema Neurological: nl mental status, nl speech, nl strength Skin: nl turgor; No rash or lesions Lymph: nl lymph nodes Results Result Diagram: 07/30/1883207/30/18832 ROC MANNING NP Jul 31, 2018 11:30
[2018-07-31] MEDS: CHLORDIAZEPOXIDE/CLIDINIUM CAP PO SCH ×3 (12:02→20:28)
[2018-07-31 14:37] VITALS: BP 118/70; PULSE 79; RESP 18
[2018-07-31] MEDS: HYDROCODONE/APAP (5/325) TAB PO PRN (16:47)
--- NOTE | 2018-07-31 17:32 | PN ---
Date/Time of Note Date/Time of Note DATE: 07/31/18 TIME: 17:31 Assessment/Plan VTE Prophylaxis Risk score (from Nsg)>0 risk: 6 SCD applied (from Nsg): Yes Lines/Catheters IV Catheter Type (from Nrsg): Peripheral IV Urinary Cath still in place: No Assessment/Plan Assessment/Plan 1) cholecystitis - IV antibiotics - HIDA scan - cholelithiasis - gi dr Velasco notified - surgery consult 2.Hyponatreamia - Po FLUID 1800CC/24 HRS - ns 70 cc/hr - AM bmp 3. Anemia- Hgb stable Result Diagram: 07/30/18 0807/30/18 08 Subjective 24 Hr Interval Summary Gastrointestinal: pain Exam/Review of Systems Exam Vitals Vital Signs Date Temp Pulse Resp B/P (MAP) Pulse Ox O2 O2 Flow FiO2 Time Delivery Rate 07/31/18 98.0 79 18 118/70 95 Room Air 14:37 (86) Intake and Output 07/30/18 07/30/18 07/31/18 1515:00 23:00 07:00 IntakeIntake Total 560 ml 1580 ml 1660 ml BalanceBalance 560 ml 1580 ml 1660 ml Medications Medication Current Medications Morphine Sulfate (morphine) 2 mg Q4H PRN IV SEVERE PAIN LEVEL 7-10 Last administered on 07/31/18at 14:31; Admin Dose 2 MG; Start 07/27/18 at 07:00 Ondansetron HCl (Zofran Inj) 4 mg Q6H PRN IV NAUSEA AND/OR VOMITING Last administered on 07/28/18at 13:55; Admin Dose 4 MG; Start 07/27/18 at 07:00 Metronidazole 100 ml @ 100 mls/hr Q6 IVPB Last administered on 07/31/18 12:02; Admin Dose 100 MLS/HR; Start 07/27/18 at 12:00 Acetaminophen/ Hydrocodone Bitart ([place] (5/325)) 1 tab Q6H PRN PO breakthrough pain Last administered on 07/31/18at 16:47; Admin Dose 1 TAB; Start 07/27/18 at 16:00 Docusate Sodium (Colace) 100 mg BID PRN PO CONSTIPATION Last administered on 07/28/18 05:19; Admin Dose 100 MG; Start 07/27/18 at 16:00 Sodium Chloride 1,000 ml @ 60 mls/hr [id number] IV Last administered on 07/30/18at 23:28; Admin Dose 60 MLS/HR; Start 07/28/18 at 17:00 Pantoprazole (Protonix Iv) 40 mg BID@06,18 IV Last administered on 07/31/18at 05:32; Admin Dose 40 MG; Start 07/29/18 at 18:00 Chlordiazepoxide/ Clidinium (Librax) 1 cap AC MEALS AND BEDTIME PO Last administered on 07/31/18at 12:02; Admin Dose 1 CAP; Start 07/31/18 at 11:30 CLARI KRISHNA Jul 31, 2018 17:32
[2018-07-31] MEDS: SOD CHLORIDE 0.9% 1,000 ML IV SCH (17:53)
[2018-07-31 20:04] VITALS: BP 107/68; PULSE 101; RESP 20
[2018-08-01] MEDS: HYDROCODONE/APAP (5/325) TAB PO PRN ×4 (01:23→20:42)
[2018-08-01 02:57] VITALS: BP 100/60; PULSE 91; RESP 18
[2018-08-01] MEDS: metroNIDAZOLE 500 MG/NS (PMX) 100 ML IVPB SCH ×3 (05:54→17:45)
[2018-08-01] MEDS: PANTOPRAZOLE 40 MG INJ IV SCH ×2 (05:54→17:45)
[2018-08-01 07:53] VITALS: BP 112/68; PULSE 94; RESP 16
[2018-08-01] MEDS: CHLORDIAZEPOXIDE/CLIDINIUM CAP PO SCH ×4 (08:01→20:42)
[2018-08-01] MEDS: SOD CHLORIDE 0.9% 1,000 ML IV SCH (08:04)
[2018-08-01 14:30] VITALS: BP 121/70; PULSE 102; RESP 18
[2018-08-01] MEDS: DOCUSATE SODIUM 100 MG CAP PO PRN (14:46)
--- NOTE | 2018-08-01 17:39 | CONS ---
Assessment/Plan Assessment/Plan Hospital Course (Demo Recall) 68 yo female presents with abdominal pain Interval hx: Pt C/O mild diffuse abdominal pain through all quadrants of abdomen improved with morphine. Pt taking morphine q 4 hours for abdominal pain. She denies diarrhea. Denies specific epigastric pain. States the pain is everywhere in her stomach and describes as labor pain like or cramping. At times it is alleviated with warm food but most of time food does not alleviate the pain. She sometimes has nausea although not at this time. The pain is not affected by palpitation of the abdomen. IMPRESSION: 1. Cholelithiasis with possible cholecystitis -MRCP negative -HIDA unremarkable 2. Abdominal pain. -improved 3. Anemia, acute -will monitor closely 4. Hypercalcemia. 5. Multiple cysts on liver noted on MRCP 6. Diarrhea-resolved Plan LFTs in am Continue with PPI and Reglan Start librax one capsule BID (with meals), if it doesn't help will increase dosage. Pt examined and plan of care discussed with Dr. Velasco Consultation Date/Type/Reason Admit Date/Time Jul 27, 2018 at 04:55 Initial Consult Date 07/28/18 Requesting Provider: CLARI KRISHNA Date/Time of Note DATE: 08/01/18 TIME: 17:34 Exam/Review of Systems Exam Vitals Vital Signs Date Temp Pulse Resp B/P (MAP) Pulse Ox O2 O2 Flow FiO2 Time Delivery Rate 08/01/18 97.5 102 18 121/70 98 14:30 (87) 08/01/18 Room Air 02:57 Intake and Output 07/31/18 07/31/18 08/01/18 1515:00 23:00 07:00 IntakeIntake Total 640 ml 920 ml 890 ml OutputOutput Total 1150 ml 200 ml 12 ml BalanceBalance -510 ml 720 ml 878 ml Constitutional: alert, oriented Head: normocephalic Eyes: PERRL ENMT: mucosa pink and moist Respiratory: normal air movement Cardiovascular: regular rate and rhythm Gastrointestinal: soft Extremities: normal pulses Neurological: nl mental status Results Result Diagram: 08/01/1852308/01/18 0524 Results 24hrs Laboratory Tests Test 08/01/18 05:24 White Blood Count 5.5 Red Blood Count 3.33 L Hemoglobin 9.7 L Hematocrit 29.7 L Mean Corpuscular Volume 89.2 Mean Corpuscular Hemoglobin 29.1 Mean Corpuscular Hemoglobin Concent 32.7 Red Cell Distribution Width 15.0 H Platelet Count 415 Mean Platelet Volume 9.4 Immature Granulocytes % 0.400 Neutrophils % 59.3 Lymphocytes % 22.0 Monocytes % 13.4 H Eosinophils % 4.4 Basophils % 0.5 Nucleated Red Blood Cells % 0.0 Immature Granulocytes # 0.020 Neutrophils # 3.3 Lymphocytes # 1.2 Monocytes # 0.7 Eosinophils # 0.2 Basophils # 0.0 Nucleated Red Blood Cells # 0.0 Sodium Level 139 Potassium Level 4.5 Chloride Level 103 Carbon Dioxide Level 29 Anion Gap 7 Blood Urea Nitrogen 18 Creatinine 0.92 Est Glomerular Filtrat Rate mL/min > 60 Glucose Level 78 Calcium Level 9.2 Total Bilirubin 0.2 Direct Bilirubin 0.00 Indirect Bilirubin 0.2 Aspartate Amino Transf (AST/SGOT) 30 Alanine Aminotransferase (ALT/SGPT) 24 Alkaline Phosphatase 58 Total Protein 6.5 Albumin 3.5 Globulin 3.00 Albumin/Globulin Ratio 1.16 Medications Medication Current Medications Morphine Sulfate (morphine) 2 mg Q4H PRN IV SEVERE PAIN LEVEL 7-10 Last administered on 07/31/18 20:29; Admin Dose 2 MG; Start 07/27/18 at 07:00 Ondansetron HCl (Zofran Inj) 4 mg Q6H PRN IV NAUSEA AND/OR VOMITING Last administered on 07/28/18 13:55; Admin Dose 4 MG; Start 07/27/18 at 07:00 Metronidazole 100 ml @ 100 mls/hr Q6 IVPB Last administered on 08/01/18 12:15; Admin Dose 100 MLS/HR; Start 07/27/18 at 12:00 Acetaminophen/ Hydrocodone Bitart ([place] (5/325)) 1 tab Q6H PRN PO breakthrough pain Last administered on 08/01/18 14:26; Admin Dose 1 TAB; Start 07/27/18 at 16:00 Docusate Sodium (Colace) 100 mg BID PRN PO CONSTIPATION Last administered on 08/01/18 14:46; Admin Dose 100 MG; Start 07/27/18 at 16:00 Pantoprazole (Protonix Iv) 40 mg BID@06,18 IV Last administered on 08/01/18 05:54; Admin Dose 40 MG; Start 07/29/18 at 18:00 Chlordiazepoxide/ Clidinium (Librax) 1 cap AC MEALS AND BEDTIME PO Last administered on 08/01/18at 12:15; Admin Dose 1 CAP; Start 07/31/18 at 11:30 GANGA ANSARI Aug 01, 2018 17:38
--- NOTE | 2018-08-01 18:41 | PN ---
Date/Time of Note Date/Time of Note DATE: 08/01/18 TIME: 18:40 Assessment/Plan VTE Prophylaxis Risk score (from Ns)>0 risk: 6 SCD applied (from Ns): Yes Lines/Catheters IV C[facility]ter Type (from [facility] Peripheral IV Urinary Cath still in place: No Assessment/Plan Assessment/Plan 1) cholecystitis - IV antibiotics - HIDA scan - cholelithiasis - gi dr Velasco notified - surgery consult 2.Hyponatreamia - Po FLUID 1800CC/24 HRS - ns 70 cc/hr - AM bmp 3. Anemia- Hgb stable Result Diagram: 08/01/1852308/01/18523 Results 24hrs Laboratory Tests Test 08/01/18 05:24 White Blood Count 5.5 Red Blood Count 3.33 L Hemoglobin 9.7 L Hematocrit 29.7 L Mean Corpuscular Volume 89.2 Mean Corpuscular Hemoglobin 29.1 Mean Corpuscular Hemoglobin Concent 32.7 Red Cell Distribution Width 15.0 H Platelet Count 415 Mean Platelet Volume 9.4 Immature Granulocytes % 0.400 Neutrophils % 59.3 Lymphocytes % 22.0 Monocytes % 13.4 H Eosinophils % 4.4 Basophils % 0.5 Nucleated Red Blood Cells % 0.0 Immature Granulocytes # 0.020 Neutrophils # 3.3 Lymphocytes # 1.2 Monocytes # 0.7 Eosinophils # 0.2 Basophils # 0.0 Nucleated Red Blood Cells # 0.0 Sodium Level 139 Potassium Level 4.5 Chloride Level 103 Carbon Dioxide Level 29 Anion Gap 7 Blood Urea Nitrogen 18 Creatinine 0.92 Est Glomerular Filtrat Rate mL/min > 60 Glucose Level 78 Calcium Level 9.2 Total Bilirubin 0.2 Direct Bilirubin 0.00 Indirect Bilirubin 0.2 Aspartate Amino Transf (AST/SGOT) 30 Alanine Aminotransferase (ALT/SGPT) 24 Alkaline Phosphatase 58 Total Protein 6.5 Albumin 3.5 Globulin 3.00 Albumin/Globulin Ratio 1.16 Exam/Review of Systems Exam Vitals Vital Signs Date Temp Pulse Resp B/P (MAP) Pulse Ox O2 O2 Flow FiO2 Time Delivery Rate 08/01/18 97.5 102 18 121/70 98 14:30 (87) 08/01/18 Room Air 02:57 Intake and Output 07/31/18 07/31/18 08/01/18 1515:00 23:00 07:00 IntakeIntake Total 640 ml 920 ml 890 ml OutputOutput Total 1150 ml 200 ml 12 ml BalanceBalance -510 ml 720 ml 878 ml Results Results 24hrs Laboratory Tests Test 08/01/18 05:24 White Blood Count 5.5 Red Blood Count 3.33 L Hemoglobin 9.7 L Hematocrit 29.7 L Mean Corpuscular Volume 89.2 Mean Corpuscular Hemoglobin 29.1 Mean Corpuscular Hemoglobin Concent 32.7 Red Cell Distribution Width 15.0 H Platelet Count 415 Mean Platelet Volume 9.4 Immature Granulocytes % 0.400 Neutrophils % 59.3 Lymphocytes % 22.0 Monocytes % 13.4 H Eosinophils % 4.4 Basophils % 0.5 Nucleated Red Blood Cells % 0.0 Immature Granulocytes # 0.020 Neutrophils # 3.3 Lymphocytes # 1.2 Monocytes # 0.7 Eosinophils # 0.2 Basophils # 0.0 Nucleated Red Blood Cells # 0.0 Sodium Level 139 Potassium Level 4.5 Chloride Level 103 Carbon Dioxide Level 29 Anion Gap 7 Blood Urea Nitrogen 18 Creatinine 0.92 Est Glomerular Filtrat Rate mL/min > 60 Glucose Level 78 Calcium Level 9.2 Total Bilirubin 0.2 Direct Bilirubin 0.00 Indirect Bilirubin 0.2 Aspartate Amino Transf (AST/SGOT) 30 Alanine Aminotransferase (ALT/SGPT) 24 Alkaline Phosphatase 58 Total Protein 6.5 Albumin 3.5 Globulin 3.00 Albumin/Globulin Ratio 1.16 Medications Medication Current Medications Morphine Sulfate (morphine) 2 mg Q4H PRN IV SEVERE PAIN LEVEL 7-10 Last administered on 07/31/18 20:29; Admin Dose 2 MG; Start 07/27/18 at 07:00 Ondansetron HCl (Zofran Inj) 4 mg Q6H PRN IV NAUSEA AND/OR VOMITING Last administered on 07/28/18at 13:55; Admin Dose 4 MG; Start 07/27/18 at 07:00 Metronidazole 100 ml @ 100 mls/hr Q6 IVPB Last administered on 08/01/18at 17:45; Admin Dose 100 MLS/HR; Start 07/27/18 at 12:00 Acetaminophen/ Hydrocodone Bitart ([place] (5/325)) 1 tab Q6H PRN PO breakthrough pain Last administered on 08/01/18at 14:26; Admin Dose 1 TAB; Start 07/27/18 at 16:00 Docusate Sodium (Colace) 100 mg BID PRN PO CONSTIPATION Last administered on 08/01/18 14:46; Admin Dose 100 MG; Start 07/27/18 at 16:00 Pantoprazole (Protonix Iv) 40 mg BID@06,18 IV Last administered on 08/01/18 17:45; Admin Dose 40 MG; Start 07/29/18 at 18:00 Chlordiazepoxide/ Clidinium (Librax) 1 cap AC MEALS AND BEDTIME PO Last administered on 08/01/18 17:45; Admin Dose 1 CAP; Start 07/31/18 at 11:30 CLARI KRISHNA Aug 01, 2018 18:41
[2018-08-01 20:00] VITALS: BP 129/70; PULSE 90; RESP 17
[2018-08-02] MEDS: metroNIDAZOLE 500 MG/NS (PMX) 100 ML IVPB SCH ×4 (00:20→17:25)
[2018-08-02] MEDS: IBUPROFEN 400 MG TAB PO PRN ×2 (00:56→07:36)
--- NOTE | 2018-08-02 01:35 | PN ---
Date/Time of Note Date/Time of Note DATE: 08/01/18 TIME: 23:31 Assessment/Plan Lines/Catheters IV Catheter Type (from [facility]): Peripheral IV Cruz in Place (from [facility]): No Assessment/Plan Chief Complaint/Hosp Course 1. Abdominal pain: DDX: PUD versus gastritis versus other; intermittent -GI > started on antispasmodics -PPI -Pain management 2. Cholelithiasis: HIDA negative; MRCP noted without choledocholithiasis or cholecystitis -No emergent surgical intervention necessary at this time > may consider cholecystectomy at some point if not improving 3. Hypochromic anemia: -Monitor and transfuse as needed Thank you Late entry 08/01 Subjective 24 Hr Interval Summary Pain overall improved but persists. Antispasmodics by gi. No fevers, chills, sob, congested cough, cp, palpitations, penaloza, dizziness, n/v/d/dysuria. Bowel function. Exam/Review of Systems Vital Signs Vitals Vital Signs Date Temp Pulse Resp B/P (MAP) Pulse Ox O2 O2 Flow FiO2 Time Delivery Rate 08/01/18 97.8 90 17 129/70 99 20:00 (89) 08/01/18 Room Air 02:57 Intake and Output 08/01/18 08/01/18 08/02/18 1515:00 23:00 07:00 IntakeIntake Total 520 ml 900 ml 240 ml BalanceBalance 520 ml 900 ml 240 ml Exam Free Text/Dictation Constitutional: alert, oriented Psych: anxiety Head: normocephalic, atraumatic Eyes: nl conjunctiva, EOMI, nl lids, nl sclera ENMT: nl external ears & nose, nl lips & teeth, mucosa pink and moist Neck: supple, non-tender; No jvd Respiratory: normal air movement; No congested cough Cardiovascular: regular rate and rhythm, nl pulses; No edema Gastrointestinal: soft, tender (Minimal); No distended Genitourinary - Female: nl external genitalia Musculoskeletal: nl extremities to inspection; No joint tenderness, No muscle weakness Extremities: normal pulses; No edema Neurological: nl mental status, nl speech, nl strength Skin: nl turgor; No rash or lesions Lymph: nl lymph nodes Results Result Diagram: 08/01/18 0524 08/01/18 0524 ROM MCALLISTER MD Aug 02, 2018 01:34
[2018-08-02 02:10] VITALS: BP 121/64; PULSE 91; RESP 18
[2018-08-02] MEDS: HYDROCODONE/APAP (5/325) TAB PO PRN (03:39)
[2018-08-02] MEDS: DOCUSATE SODIUM 100 MG CAP PO PRN ×2 (03:47→13:15)
[2018-08-02] MEDS: PANTOPRAZOLE 40 MG INJ IV SCH ×2 (06:05→17:26)
[2018-08-02 08:16] VITALS: BP 130/72; PULSE 95; RESP 16
[2018-08-02] MEDS: CHLORDIAZEPOXIDE/CLIDINIUM CAP PO SCH ×4 (09:05→22:14)
[2018-08-02] MEDS: morphine 2 MG INJ IV PRN ×4 (09:06→21:29)
--- NOTE | 2018-08-02 12:58 | CONS ---
Assessment/Plan Assessment/Plan Hospital Course (Demo Recall) 68 yo female presents with abdominal pain Interval hx: Continues to have abd pain intermittently. tolerating PO diet. No bm since 07/31 IMPRESSION: 1. Cholelithiasis with possible cholecystitis -MRCP negative -HIDA unremarkable 2. Abdominal pain. -improved 3. Anemia, acute -will monitor closely 4. Hypercalcemia. 5. Multiple cysts on liver noted on MRCP 6. Diarrhea-resolved Plan Continue current care Pt examined and plan of care discussed with Dr. Velasco Consultation Date/Type/Reason Admit Date/Time Jul 27, 2018 at 04:55 Initial Consult Date 07/28/18 Requesting Provider: CLARI KRISHNA Date/Time of Note DATE: 08/02/18 TIME: 12:56 Exam/Review of Systems Exam Vitals Vital Signs Date Temp Pulse Resp B/P (MAP) Pulse Ox O2 O2 Flow FiO2 Time Delivery Rate 08/02/18 98.2 95 16 130/72 93 08:16 (91) 08/01/18 Room Air 02:57 Intake and Output 08/01/18 08/01/18 08/02/18 1515:00 23:00 07:00 IntakeIntake Total 520 ml 900 ml 440 ml BalanceBalance 520 ml 900 ml 440 ml Constitutional: alert, oriented Head: normocephalic Eyes: PERRL ENMT: mucosa pink and moist Respiratory: normal air movement Cardiovascular: regular rate and rhythm Gastrointestinal: soft, non-tender, bowel sounds Neurological: nl mental status Results Result Diagram: 08/02/18 0704 08/02/18 0704 Results 24hrs Laboratory Tests Test 08/02/18 07:04 White Blood Count 4.9 Red Blood Count 3.20 L Hemoglobin 9.4 L Hematocrit 28.8 L Mean Corpuscular Volume 90.0 Mean Corpuscular Hemoglobin 29.4 Mean Corpuscular Hemoglobin Concent 32.6 Red Cell Distribution Width 15.1 H Platelet Count 396 Mean Platelet Volume 9.0 Immature Granulocytes % 0.800 H Neutrophils % 55.5 Lymphocytes % 25.6 Monocytes % 14.4 H Eosinophils % 3.5 Basophils % 0.2 Nucleated Red Blood Cells % 0.0 Immature Granulocytes # 0.040 H Neutrophils # 2.7 Lymphocytes # 1.3 Monocytes # 0.7 Eosinophils # 0.2 Basophils # 0.0 Nucleated Red Blood Cells # 0.0 Sodium Level 138 Potassium Level 4.4 Chloride Level 103 Carbon Dioxide Level 27 Anion Gap 8 Blood Urea Nitrogen 18 Creatinine 0.97 Est Glomerular Filtrat Rate mL/min > 60 Glucose Level 80 Calcium Level 9.2 Medications Medication Current Medications Morphine Sulfate (morphine) 2 mg Q4H PRN IV SEVERE PAIN LEVEL 7-10 Last administered on 08/02/18 09:06; Admin Dose 2 MG; Start 07/27/18 at 07:00 Ondansetron HCl (Zofran Inj) 4 mg Q6H PRN IV NAUSEA AND/OR VOMITING Last administered on 07/28/18 13:55; Admin Dose 4 MG; Start 07/27/18 at 07:00 Metronidazole 100 ml @ 100 mls/hr Q6 IVPB Last administered on 08/02/18 06:05; Admin Dose 100 MLS/HR; Start 07/27/18 at 12:00 Acetaminophen/ Hydrocodone Bitart ([place] (5/325)) 1 tab Q6H PRN PO breakthrough pain Last administered on 08/02/18 03:39; Admin Dose 1 TAB; Start 07/27/18 at 16:00 Docusate Sodium (Colace) 100 mg BID PRN PO CONSTIPATION Last administered on 08/02/18 03:47; Admin Dose 100 MG; Start 07/27/18 at 16:00 Pantoprazole (Protonix Iv) 40 mg BID@06,18 IV Last administered on 08/02/18 06:05; Admin Dose 40 MG; Start 07/29/18 at 18:00 Chlordiazepoxide/ Clidinium (Librax) 1 cap AC MEALS AND BEDTIME PO Last administered on 08/02/18 09:05; Admin Dose 1 CAP; Start 07/31/18 at 11:30 Ibuprofen (Motrin) 400 mg Q6H PRN PO MILD PAIN(1-3) OR TEMP>38C Last administered on 08/02/18 07:36; Admin Dose 400 MG; Start 08/02/18 at 01:00 GANGA ANSARI Aug 02, 2018 12:58
--- NOTE | 2018-08-02 13:31 | PN ---
Date/Time of Note Date/Time of Note DATE: 08/02/18 TIME: 13:29 Assessment/Plan VTE Prophylaxis Risk score (from Ns)>0 risk: 4 SCD applied (from Ns): Yes Lines/Catheters IV C[facility]ter Type (from [facility]): Peripheral IV Urinary Cath still in place: No Assessment/Plan Assessment/Plan 1) cholecystitis - IV antibiotics - HIDA scan - cholelithiasis - gi dr Velasco notified - surgery consult 2.Hyponatremias- resolved - Po FLUID 1800CC/24 HRS - ns 70 cc/hr - AM bmp 3. Anemia- Hgb stable Result Diagram: 08/02/18 0704 08/02/18 0704 Results 24hrs Laboratory Tests Test 08/02/18 07:04 White Blood Count 4.9 Red Blood Count 3.20 L Hemoglobin 9.4 L Hematocrit 28.8 L Mean Corpuscular Volume 90.0 Mean Corpuscular Hemoglobin 29.4 Mean Corpuscular Hemoglobin Concent 32.6 Red Cell Distribution Width 15.1 H Platelet Count 396 Mean Platelet Volume 9.0 Immature Granulocytes % 0.800 H Neutrophils % 55.5 Lymphocytes % 25.6 Monocytes % 14.4 H Eosinophils % 3.5 Basophils % 0.2 Nucleated Red Blood Cells % 0.0 Immature Granulocytes # 0.040 H Neutrophils # 2.7 Lymphocytes # 1.3 Monocytes # 0.7 Eosinophils # 0.2 Basophils # 0.0 Nucleated Red Blood Cells # 0.0 Sodium Level 138 Potassium Level 4.4 Chloride Level 103 Carbon Dioxide Level 27 Anion Gap 8 Blood Urea Nitrogen 18 Creatinine 0.97 Est Glomerular Filtrat Rate mL/min > 60 Glucose Level 80 Calcium Level 9.2 Exam/Review of Systems Exam Vitals Vital Signs Date Temp Pulse Resp B/P (MAP) Pulse Ox O2 O2 Flow FiO2 Time Delivery Rate 08/02/18 98.2 95 16 130/72 93 08:16 (91) 08/01/18 Room Air 02:57 Intake and Output 08/01/18 08/01/18 08/02/18 1515:00 23:00 07:00 IntakeIntake Total 520 ml 900 ml 440 ml BalanceBalance 520 ml 900 ml 440 ml Results Results 24hrs Laboratory Tests Test 08/02/18 07:04 White Blood Count 4.9 Red Blood Count 3.20 L Hemoglobin 9.4 L Hematocrit 28.8 L Mean Corpuscular Volume 90.0 Mean Corpuscular Hemoglobin 29.4 Mean Corpuscular Hemoglobin Concent 32.6 Red Cell Distribution Width 15.1 H Platelet Count 396 Mean Platelet Volume 9.0 Immature Granulocytes % 0.800 H Neutrophils % 55.5 Lymphocytes % 25.6 Monocytes % 14.4 H Eosinophils % 3.5 Basophils % 0.2 Nucleated Red Blood Cells % 0.0 Immature Granulocytes # 0.040 H Neutrophils # 2.7 Lymphocytes # 1.3 Monocytes # 0.7 Eosinophils # 0.2 Basophils # 0.0 Nucleated Red Blood Cells # 0.0 Sodium Level 138 Potassium Level 4.4 Chloride Level 103 Carbon Dioxide Level 27 Anion Gap 8 Blood Urea Nitrogen 18 Creatinine 0.97 Est Glomerular Filtrat Rate mL/min > 60 Glucose Level 80 Calcium Level 9.2 Medications Medication Current Medications Morphine Sulfate (morphine) 2 mg Q4H PRN IV SEVERE PAIN LEVEL 7-10 Last administered on 08/02/18 13:08; Admin Dose 2 MG; Start 07/27/18 at 07:00 Ondansetron HCl (Zofran Inj) 4 mg Q6H PRN IV NAUSEA AND/OR VOMITING Last administered on 07/28/18 13:55; Admin Dose 4 MG; Start 07/27/18 at 07:00 Metronidazole 100 ml @ 100 mls/hr Q6 IVPB Last administered on 08/02/18 13:02; Admin Dose 100 MLS/HR; Start 07/27/18 at 12:00 Acetaminophen/ Hydrocodone Bitart ([place] (5/325)) 1 tab Q6H PRN PO breakthrough pain Last administered on 08/02/18 03:39; Admin Dose 1 TAB; Start 07/27/18 at 16:00 Docusate Sodium (Colace) 100 mg BID PRN PO CONSTIPATION Last administered on 08/02/18 13:15; Admin Dose 100 MG; Start 07/27/18 at 16:00 Pantoprazole (Protonix Iv) 40 mg BID@06,18 IV Last administered on 08/02/18 06:05; Admin Dose 40 MG; Start 07/29/18 at 18:00 Chlordiazepoxide/ Clidinium (Librax) 1 cap AC MEALS AND BEDTIME PO Last administered on 08/02/18 13:01; Admin Dose 1 CAP; Start 07/31/18 at 11:30 Ibuprofen (Motrin) 400 mg Q6H PRN PO MILD PAIN(1-3) OR TEMP>38C Last administered on 08/02/18at 07:36; Admin Dose 400 MG; Start 08/02/18 at 01:00 CLARI KRISHNA Aug 02, 2018 13:31
[2018-08-02 14:30] VITALS: BP 115/69; PULSE 83; RESP 16
[2018-08-02 20:00] VITALS: BP 116/66; PULSE 92; RESP 18
[2018-08-03] MEDS: metroNIDAZOLE 500 MG/NS (PMX) 100 ML IVPB SCH ×5 (00:51→23:47)
--- NOTE | 2018-08-03 01:23 | PN ---
Date/Time of Note Date/Time of Note DATE: 08/02/18 TIME: 23:21 Assessment/Plan Lines/Catheters IV Catheter Type (from [facility] [place]): Peripheral IV Cruz in Place (from [facility] [place]): No Assessment/Plan Chief Complaint/Hosp Course 1. Abdominal pain: DDX: PUD versus gastritis versus other; intermittent -GI > started on antispasmodics -PPI -Pain management 2. Cholelithiasis: HIDA negative; MRCP noted without choledocholithiasis or cholecystitis -No emergent surgical intervention necessary at this time > may consider cholecystectomy at some point if not improving 3. Hypochromic anemia: -Monitor and transfuse as needed Thank you Late entry 08/02 Subjective 24 Hr Interval Summary Pain overall improved but persists. Antispasmodics per GI. No fevers, chills, sob, congested cough, cp, palpitations, penaloza, dizziness, n/v/d/dysuria. Bowel fun ction. Exam/Review of Systems Vital Signs Vitals Vital Signs Date Temp Pulse Resp B/P (MAP) Pulse Ox O2 O2 Flow FiO2 Time Delivery Rate 08/02/18 98.1 92 18 116/66 99 20:00 (83) 08/01/18 Room Air 02:57 Intake and Output 08/02/18 08/02/18 08/03/18 1515:00 23:00 07:00 IntakeIntake Total 1080 ml 1060 ml BalanceBalance 1080 ml 1060 ml Exam Free Text/Dictation Constitutional: alert, oriented Psych: anxiety Head: normocephalic, atraumatic Eyes: nl conjunctiva, EOMI, nl lids, nl sclera ENMT: nl external ears & nose, nl lips & teeth, mucosa pink and moist Neck: supple, non-tender; No jvd Respiratory: normal air movement; No congested cough Cardiovascular: regular rate and rhythm, nl pulses; No edema Gastrointestinal: soft, tender (Minimal); No distended Genitourinary - Female: nl external genitalia Musculoskeletal: nl extremities to inspection; No joint tenderness, No muscle weakness Extremities: normal pulses; No edema Neurological: nl mental status, nl speech, nl strength Skin: nl turgor; No rash or lesions Lymph: nl lymph nodes Results Result Diagram: 08/02/18 0704 08/02/18 0704 ROM MCALLISTER MD Aug 03, 2018 01:23
[2018-08-03] MEDS: morphine 2 MG INJ IV PRN ×5 (02:35→22:31)
[2018-08-03 02:42] VITALS: BP 113/65; PULSE 86; RESP 17
[2018-08-03] MEDS: PANTOPRAZOLE 40 MG INJ IV SCH ×2 (06:00→17:56)
[2018-08-03] MEDS: DOCUSATE SODIUM 100 MG CAP PO PRN (06:16)
[2018-08-03] MEDS: CHLORDIAZEPOXIDE/CLIDINIUM CAP PO SCH ×4 (07:02→21:00)
[2018-08-03 08:27] VITALS: BP 142/72; PULSE 91; RESP 19
--- NOTE | 2018-08-03 08:54 | CONS ---
Assessment/Plan Assessment/Plan Hospital Course (Demo Recall) 68 yo female presents with abdominal pain Interval hx: Pt states she feels better. Abdominal pain that was every where is now only in bilateral lower abdomen intermittently. Says makes it hard to sit too long and shifts from side to side when she stands. Denies numbness or tingling in extremities or loss of strength. Denies vaginal bleeding. Denies dysuria. IMPRESSION: 1. Cholelithiasis with possible cholecystitis -MRCP negative -HIDA unremarkable 2. Abdominal pain. -improved, now lower abd 3. Anemia, acute -will monitor closely 4. Hypercalcemia. 5. Multiple cysts on liver noted on MRCP 6. Diarrhea-resolved Plan Miralax and amitiza Urine cx Pelvic US FOB Continue librex and pain management Continue current care Pt examined and plan of care discussed with Dr. Velasco Consultation Date/Type/Reason Admit Date/Time Jul 27, 2018 at 04:55 Initial Consult Date 07/28/18 Requesting Provider: CLARI KRISHNA Date/Time of Note DATE: 08/03/18 TIME: 08:45 Exam/Review of Systems Exam Vitals Vital Signs Date Temp Pulse Resp B/P (MAP) Pulse Ox O2 O2 Flow FiO2 Time Delivery Rate 08/03/18 97.8 91 19 142/72 96 08:27 (95) 08/01/18 Room Air 02:57 Intake and Output 08/02/18 08/02/18 08/03/18 1515:00 23:00 07:00 IntakeIntake Total 1080 ml 1060 ml 580 ml BalanceBalance 1080 ml 1060 ml 580 ml Constitutional: alert, oriented Psych: nl mood/affect Head: normocephalic Eyes: nl sclera, PERRL ENMT: mucosa pink and moist Respiratory: clear to auscultation Gastrointestinal: soft, non-tender, bowel sounds Musculoskeletal: nl gait and stance Neurological: nl mental status Results Result Diagram: 08/02/1870308/02/18703 Medications Medication Current Medications Morphine Sulfate (morphine) 2 mg Q4H PRN IV SEVERE PAIN LEVEL 7-10 Last administered on 08/03/18at 06:36; Admin Dose 2 MG; Start 07/27/18 at 07:00 Ondansetron HCl (Zofran Inj) 4 mg Q6H PRN IV NAUSEA AND/OR VOMITING Last administered on 07/28/18 13:55; Admin Dose 4 MG; Start 07/27/18 at 07:00 Metronidazole 100 ml @ 100 mls/hr Q6 IVPB Last administered on 08/03/18 06:16; Admin Dose 100 MLS/HR; Start 07/27/18 at 12:00 Acetaminophen/ Hydrocodone Bitart ([place] (5/325)) 1 tab Q6H PRN PO breakthrough pain Last administered on 08/02/18 03:39; Admin Dose 1 TAB; Start 07/27/18 at 16:00 Docusate Sodium (Colace) 100 mg BID PRN PO CONSTIPATION Last administered on 08/03/18 06:16; Admin Dose 100 MG; Start 07/27/18 at 16:00 Pantoprazole (Protonix Iv) 40 mg BID@06,18 IV Last administered on 08/02/18 17:26; Admin Dose 40 MG; Start 07/29/18 at 18:00 Chlordiazepoxide/ Clidinium (Librax) 1 cap AC MEALS AND BEDTIME PO Last administered on 08/03/18 07:02; Admin Dose 1 CAP; Start 07/31/18 at 11:30 Ibuprofen (Motrin) 400 mg Q6H PRN PO MILD PAIN(1-3) OR TEMP>38C Last administered on 08/02/18 07:36; Admin Dose 400 MG; Start 08/02/18 at 01:00 GANGA ANSARI Aug 03, 2018 08:54
[2018-08-03] MEDS: LUBIPROSTONE 24 MCG CAP PO SCH ×2 (09:43→21:00)
[2018-08-03] MEDS: POLYETHYLENE GLYCOL 17 GM PACKET PO SCH (09:52)
--- NOTE | 2018-08-03 11:29 | PN ---
Date/Time of Note Date/Time of Note DATE: 08/03/18 TIME: 11:26 Assessment/Plan Lines/Catheters IV Catheter Type (from [facility]rs): Peripheral IV Cruz in Place (from [facility]): No Assessment/Plan Chief Complaint/Hosp Course 1. Abdominal pain ? etiology. Non surgical at this time (doubt gallbladder) -Consider HIDA c CCK -GI f/u (antispasmodics, ..) -PPI -Pain management 2. Cholelithiasis: HIDA negative; MRCP noted without choledocholithiasis or cholecystitis -No emergent surgical intervention necessary at this time > may consider cholecystectomy at some point if not improving 3. Hypochromic anemia: -Monitor and transfuse as needed Thank you Subjective 24 Hr Interval Summary Pain improved overall but currently mostly in lower quadrants > difficult to sit. Antispasmodics per GI. No fevers, chills, sob, congested cough, cp, pa lpitations, penaloza, dizziness, n/v/d/dysuria. Bowel function. Exam/Review of Systems Vital Signs Vitals Vital Signs Date Temp Pulse Resp B/P (MAP) Pulse Ox O2 O2 Flow FiO2 Time Delivery Rate 08/03/18 97.8 91 19 142/72 96 08:27 (95) 08/01/18 Room Air 02:57 Intake and Output 08/02/18 08/02/18 08/03/18 1515:00 23:00 07:00 IntakeIntake Total 1080 ml 1060 ml 580 ml BalanceBalance 1080 ml 1060 ml 580 ml Exam Free Text/Dictation Constitutional: alert, oriented Psych: anxiety Head: normocephalic, atraumatic Eyes: nl conjunctiva, EOMI, nl lids, nl sclera ENMT: nl external ears & nose, nl lips & teeth, mucosa pink and moist Neck: supple, non-tender; No jvd Respiratory: normal air movement; No congested cough Cardiovascular: regular rate and rhythm, nl pulses; No edema Gastrointestinal: soft, min tender in lower quadrants without rebound/guarding/rigidity; ND Genitourinary - Female: nl external genitalia Musculoskeletal: nl extremities to inspection; No joint tenderness, No muscle weakness Extremities: normal pulses; No edema Neurological: nl mental status, nl speech, nl strength Skin: nl turgor; No rash or lesions Lymph: nl lymph nodes Results Result Diagram: 08/02/18 0704 08/02/18 0704 ROM MCALLISTER MD Aug 03, 2018 11:29
[2018-08-03] MEDS: HYDROCODONE/APAP (5/325) TAB PO PRN (14:36)
[2018-08-03 15:02] VITALS: BP 121/84; PULSE 86; RESP 17
--- NOTE | 2018-08-03 19:51 | CONS ---
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 Her workup revealed cholelithiasis without e/o acute cholecystitis, choledocholithiasis or cholangitis. Pt was placed on metronidazole since admission. Pt presented at ER on 07/18/2018 c/o painful mass of R breast. She was given a dose of IV vancomycin and was sent home with PO Bactrim. She took it for 7 days. The pain resolved but the mass ("swelling") p ersists. She denies trauma or skin cuts to R breast, no erythema or warmth of R breast, no discharge from the nipple. She has had annual mammogram, last taken around 07/2017 and Pt was informed that there was no abnormality. HANNAH Best requested ID consultation on this Pt. Constitutional: no complaints Eyes: no complaints ENT: no complaints Respiratory: no complaints, shortness of breath Cardiovascular: No chest pain Gastrointestinal: pain (lower abdomen, improved); No diarrhea, No nausea Genitourinary: no complaints Musculoskeletal: no complaints Skin: no complaints Neurologic: no complaints Additional Comments breast mass as per HPI Past Medical History Medical History: congestive heart failure, other (COPD, lung CA) Home Meds Active Scripts Ibuprofen* (Ibuprofen*) 600 Mg Tablet, 600 MG PO Q6H PRN for PAIN, #30 TAB Prov:ONIEL PRIETO 07/18/18 Sulfamethoxazole/Trimethoprim* (Bactrim Ds* Tablet) 1 Each Tablet, 1 TAB PO BID, #14 TAB Prov:ONIEL PRIETO 07/18/18 Guaifenesin-Codeine Phosphate* (Guaifenesin* AC Cough Syrup) 473 Ml Liquid, 5 ML PO BID PRN for COUGH, #60 ML Prov:ALEJANDRA DICKSON MD 03/11/18 Prednisone* (Prednisone*) 20 Mg Tab, 60 MG PO DAILY for 5 Days, TAB Prov:ALEJANDRA DICKSON MD 03/11/18 Amoxicillin* (Amoxicillin*) 500 Mg Cap, 500 MG PO TID for 7 Days, CAP Prov:JIMBO MARINELLI 07/19/17 Hydrocodone/Acetaminophen ([place] 5-325 Tablet) 1 Each Tablet, 1 TAB PO Q6H PRN for SEVERE PAIN LEVEL 7-10, #20 TAB Prov:YODIT CARDOSO NP 06/09/17 Ibuprofen* (Motrin*) 400 Mg Tab, 400 MG PO Q6H PRN for PAIN AND OR ELEVATED TEMP, #30 TAB Prov:YODIT CARDOSO NP 06/09/17 Ondansetron (Ondansetron Odt) 4 Mg Tab.rapdis, 4 MG PO Q6H PRN for NAUSEA AND/OR VOMITING, #10 TAB Prov:CHAITANYA EDGAR MD 05/16/17 Hydrocodone/Acetaminophen ([place] 10-325 Tablet) 1 Each Tablet, 1 TAB PO Q6H PRN for PAIN, #7 TAB Prov:CHAITANYA EDGAR MD 05/16/17 Reported Medications Salmeterol Xinafoate (Serevent Diskus) 50 Mcg Blst.w.dev, 5 MCG INH BID 10/24/16 Tiotropium [place]* (Spiriva*) 18 Mcg Cap.w.dev, 1 CAP INHALATION DAILY, #30 CAP 10/24/16 Nortriptyline Hcl* (Nortriptyline Hcl*) 25 Mg Capsule, 25 MG PO HS, CAP 10/24/16 Lorazepam* (Lorazepam*) 1 Mg Tablet, 1 MG PO QAM PRN for ANXIETY, #30 TAB 10/24/16 Trifluoperazine Hcl (Trifluoperazine Hcl) 10 Mg Tablet, 20 MG PO QHS, TAB 10/24/16 Diltiazem Hcl (Diltiazem) 120 Mg Capsr, 120 MG PO DAILY 03/29/12 Medications Current Medications Morphine Sulfate (morphine) 2 mg Q4H PRN IV SEVERE PAIN LEVEL 7-10 Last administered on 08/03/18 16:55; Admin Dose 2 MG; Start 07/27/18 at 07:00 Ondansetron HCl (Zofran Inj) 4 mg Q6H PRN IV NAUSEA AND/OR VOMITING Last administered on 07/28/18 13:55; Admin Dose 4 MG; Start 07/27/18 at 07:00 Metronidazole 100 ml @ 100 mls/hr Q6 IVPB Last administered on 08/03/18 18:02; Admin Dose 100 MLS/HR; Start 07/27/18 at 12:00 Acetaminophen/ Hydrocodone Bitart ([place] (5/325)) 1 tab Q6H PRN PO breakthrough pain Last administered on 08/03/18 14:36; Admin Dose 1 TAB; Start 07/27/18 at 16:00 Docusate Sodium (Colace) 100 mg BID PRN PO CONSTIPATION Last administered on 08/03/18 06:16; Admin Dose 100 MG; Start 07/27/18 at 16:00 Pantoprazole (Protonix Iv) 40 mg BID@06,18 IV Last administered on 08/03/18 17:56; Admin Dose 40 MG; Start 07/29/18 at 18:00 Chlordiazepoxide/ Clidinium (Librax) 1 cap AC MEALS AND BEDTIME PO Last administered on 08/03/18 09:43; Admin Dose 1 CAP; Start 07/31/18 at 11:30 Ibuprofen (Motrin) 400 mg Q6H PRN PO MILD PAIN(1-3) OR TEMP>38C Last administered on 08/02/18 07:36; Admin Dose 400 MG; Start 08/02/18 at 01:00 Polyethylene Glycol (Miralax) 17 gm DAILY PO Last administered on 08/03/18 09:52; Admin Dose 17 GM; Start 08/03/18 at 09:00 Lubiprostone (Amitiza) 24 mcg BID PO Last administered on 08/03/18 09:43; Admin Dose 24 MCG; Start 08/03/18 at 09:00 Allergies: Coded Allergies: No Known Drug Allergy (Unverified Allergy, Unknown, 07/18/18) Social History Smoking Status: Former smoker Exam/Review of Systems Exam Vitals Vital Signs Date Temp Pulse Resp B/P (MAP) Pulse Ox O2 O2 Flow FiO2 Time Delivery Rate 08/03/18 98.5 86 17 121/84 98 15:02 (96) 08/01/18 Room Air 02:57 Intake and Output 08/02/18 08/02/18 08/03/18 1515:00 23:00 07:00 IntakeIntake Total 1080 ml 1060 ml 580 ml BalanceBalance 1080 ml 1060 ml 580 ml Constitutional: alert, oriented, frail Psych: no complaints, nl mood/affect Head: normocephalic, atraumatic Eyes: nl conjunctiva, nl lids, nl sclera ENMT: nl external ears & nose, nl nasal mucosa & septum, mucosa pink and moist Neck: other (not swollen) Respiratory: diminished breath sounds Cardiovascular: regular rate and rhythm, nl pulses Gastrointestinal: soft, non-tender; No distended Musculoskeletal: nl extremities to inspection Extremities: No edema Neurological: VINYL DIPPER II-XII intact, nl mental status, nl speech Skin: nl turgor, other (R breast: no skin idnuration, warmth or tenderness. A firm mass is felt at 5-7 o'clock position) Lymph: other (R axillary AUGUST) Results Result Diagram: 08/02/18 0704 08/02/18 0704 Medications Medication Current Medications Morphine Sulfate (morphine) 2 mg Q4H PRN IV SEVERE PAIN LEVEL 7-10 Last administered on 08/03/18at 16:55; Admin Dose 2 MG; Start 07/27/18 at 07:00 Ondansetron HCl (Zofran Inj) 4 mg Q6H PRN IV NAUSEA AND/OR VOMITING Last administered on 07/28/18at 13:55; Admin Dose 4 MG; Start 07/27/18 at 07:00 Metronidazole 100 ml @ 100 mls/hr Q6 IVPB Last administered on 08/03/18at 18:02; Admin Dose 100 MLS/HR; Start 07/27/18 at 12:00 Acetaminophen/ Hydrocodone Bitart ([place] (5/325)) 1 tab Q6H PRN PO breakthrough pain Last administered on 08/03/18 14:36; Admin Dose 1 TAB; Start 07/27/18 at 16:00 Docusate Sodium (Colace) 100 mg BID PRN PO CONSTIPATION Last administered on 08/03/18 06:16; Admin Dose 100 MG; Start 07/27/18 at 16:00 Pantoprazole (Protonix Iv) 40 mg BID@06,18 IV Last administered on 08/03/18 17:56; Admin Dose 40 MG; Start 07/29/18 at 18:00 Chlordiazepoxide/ Clidinium (Librax) 1 cap AC MEALS AND BEDTIME PO Last administered on 08/03/18 09:43; Admin Dose 1 CAP; Start 07/31/18 at 11:30 Ibuprofen (Motrin) 400 mg Q6H PRN PO MILD PAIN(1-3) OR TEMP>38C Last administered on 08/02/18 07:36; Admin Dose 400 MG; Start 08/02/18 at 01:00 Polyethylene Glycol (Miralax) 17 gm DAILY PO Last administered on 08/03/18 09:52; Admin Dose 17 GM; Start 08/03/18 at 09:00 Lubiprostone (Amitiza) 24 mcg BID PO Last administered on 08/03/18 09:43; Adm in Dose 24 MCG; Start 08/03/18 at 09:00 DAKOTA MCCLAIN M.D. Aug 03, 2018 19:50
--- NOTE | 2018-08-03 19:53 | PN ---
Date/Time of Note Date/Time of Note DATE: 08/03/18 TIME: 19:46 Assessment/Plan VTE Prophylaxis Risk score (from Nsg)>0 risk: 3 SCD applied (from Nsg): Yes Lines/Catheters IV Catheter Type (from Nrsg): Saline Lock Urinary Cath still in place: No Assessment/Plan Assessment/Plan - cholecystitis - id on care - HIDA scan - cholelithiasis -GI follows - per surgery consult - Acute Headache- none at present - ok with pain med - will do further testing if headache continues - Right breast pain/swelling - US - mammogram was recommended ; will give prescription to patient - Anemia- Hgb stable- 9.[address] Recinos Result Diagram: 08/02/1804 08/02/18703 Subjective 24 Hr Interval Summary Free Text/Dictation MAMMOGRAM PRESCRIPTION GIVEN- REFER TP PATIENT CHART Eyes: no complaints Respiratory: no complaints Cardiovascular: no complaints Gastrointestinal: pain Genitourinary: no complaints Musculoskeletal: no complaints Neurologic: no complaints Endocrine: no complaints Lymphatic: no complaints Psychological: nl mood/affect Immunologic: no complaints Exam/Review of Systems Exam Vitals Vital Signs Date Temp Pulse Resp B/P (MAP) Pulse Ox O2 O2 Flow FiO2 Time Delivery Rate 08/03/18 98.5 86 17 121/84 98 15:02 (96) 08/01/18 Room Air 02:57 Intake and Output 08/02/18 08/02/18 08/03/18 1515:00 23:00 07:00 IntakeIntake Total 1080 ml 1060 ml 580 ml BalanceBalance 1080 ml 1060 ml 580 ml Constitutional: alert, well developed Psych: nl mood/affect Eyes: nl lids, nl sclera ENMT: nl external ears & nose Neck: supple, non-tender Respiratory: clear to auscultation Cardiovascular: nl pulses Gastrointestinal: soft Musculoskeletal: nl extremities to inspection Neurological: nl speech Medications Medication Current Medications Morphine Sulfate (morphine) 2 mg Q4H PRN IV SEVERE PAIN LEVEL 7-10 Last administered on 08/03/18at 16:55; Admin Dose 2 MG; Start 07/27/18 at 07:00 Ondansetron HCl (Zofran Inj) 4 mg Q6H PRN IV NAUSEA AND/OR VOMITING Last administered on 07/28/18at 13:55; Admin Dose 4 MG; Start 07/27/18 at 07:00 Metronidazole 100 ml @ 100 mls/hr Q6 IVPB Last administered on 08/03/18 18:02; Admin Dose 100 MLS/HR; Start 07/27/18 at 12:00 Acetaminophen/ Hydrocodone Bitart ([place] (5/325)) 1 tab Q6H PRN PO breakthrough pain Last administered on 08/03/18 14:36; Admin Dose 1 TAB; Start 07/27/18 at 16:00 Docusate Sodium (Colace) 100 mg BID PRN PO CONSTIPATION Last administered on 08/03/18 06:16; Admin Dose 100 MG; Start 07/27/18 at 16:00 Pantoprazole (Protonix Iv) 40 mg BID@06,18 IV Last administered on 08/03/18 17:56; Admin Dose 40 MG; Start 07/29/18 at 18:00 Chlordiazepoxide/ Clidinium (Librax) 1 cap AC MEALS AND BEDTIME PO Last administered on 08/03/18 09:43; Admin Dose 1 CAP; Start 07/31/18 at 11:30 Ibuprofen (Motrin) 400 mg Q6H PRN PO MILD PAIN(1-3) OR TEMP>38C Last administered on 08/02/18 07:36; Admin Dose 400 MG; Start 08/02/18 at 01:00 Polyethylene Glycol (Miralax) 17 gm DAILY PO Last administered on 08/03/18 09:52; Admin Dose 17 GM; Start 08/03/18 at 09:00 Lubiprostone (Amitiza) 24 mcg BID PO Last administered on 08/03/18 09:43; Admin Dose 24 MCG; Start 08/03/18 at 09:00 CLARI KRISHNA Aug 03, 2018 19:53
[2018-08-03 20:31] VITALS: BP 115/93; PULSE 91; RESP 18
[2018-08-03] MEDS: CEFTRIAXONE 1 GM/50 ML (PMX) 50 ML IVPB SCH (22:32)
[2018-08-04 03:06] VITALS: BP 112/62; PULSE 86; RESP 18
[2018-08-04] MEDS: morphine 2 MG INJ IV PRN ×3 (03:23→13:13)
[2018-08-04] MEDS: metroNIDAZOLE 500 MG/NS (PMX) 100 ML IVPB SCH ×3 (05:47→17:54)
[2018-08-04] MEDS: PANTOPRAZOLE 40 MG INJ IV SCH ×2 (05:59→17:54)
[2018-08-04] MEDS: HYDROCODONE/APAP (5/325) TAB PO PRN ×3 (06:05→22:47)
--- NOTE | 2018-08-04 06:10 | PN ---
Date/Time of Note Date/Time of Note DATE: 08/04/18 TIME: 06:10 Assessment/Plan VTE Prophylaxis Risk score (from Nsg)>0 risk: 3 SCD applied (from Nsg): No Lines/Catheters IV Catheter Type (from Nrsg): Saline Lock Urinary Cath still in place: No Assessment/Plan Assessment/Plan - cholecystitis - id on care - HIDA scan - cholelithiasis -GI follows - per surgery consult - Acute Headache- none at present - ok with pain med - sp CT brain - Right breast pain/swelling - US - mammogram was recommended ; will give prescription to patient - Anemia- Hgb stable- 9.[address] Recinos Result Diagram: 08/02/1804 08/02/18 0704 Results 24hrs Laboratory Tests Test 08/03/18 21:30 Stool Occult Blood NEGATIVE Exam/Review of Systems Exam Vitals Vital Signs Date Temp Pulse Resp B/P (MAP) Pulse Ox O2 O2 Flow FiO2 Time Delivery Rate 08/04/18 98.1 86 18 112/62 98 03:06 (79) 08/01/18 Room Air 02:57 Intake and Output 08/03/18 08/03/18 08/04/18 1515:00 23:00 07:00 IntakeIntake Total 580 ml 440 ml 150 ml BalanceBalance 580 ml 440 ml 150 ml Results Results 24hrs Laboratory Tests Test 08/03/18 21:30 Stool Occult Blood NEGATIVE Medications Medication Current Medications Morphine Sulfate (morphine) 2 mg Q4H PRN IV SEVERE PAIN LEVEL 7-10 Last administered on 08/04/18at 03:23; Admin Dose 2 MG; Start 07/27/18 at 07:00 Ondansetron HCl (Zofran Inj) 4 mg Q6H PRN IV NAUSEA AND/OR VOMITING Last administered on 07/28/18at 13:55; Admin Dose 4 MG; Start 07/27/18 at 07:00 Metronidazole 100 ml @ 100 mls/hr Q6 IVPB Last administered on 08/04/18at 05:47; Admin Dose 100 MLS/HR; Start 07/27/18 at 12:00 Acetaminophen/ Hydrocodone Bitart ([place] (5/325)) 1 tab Q6H PRN PO breakthrough pain Last administered on 08/04/18at 06:05; Admin Dose 1 TAB; Start 07/27/18 at 16:00 Docusate Sodium (Colace) 100 mg BID PRN PO CONSTIPATION Last administered on 08/03/18 06:16; Admin Dose 100 MG; Start 07/27/18 at 16:00 Pantoprazole (Protonix Iv) 40 mg BID@06,18 IV Last administered on 08/03/18 17:56; Admin Dose 40 MG; Start 07/29/18 at 18:00 Chlordiazepoxide/ Clidinium (Librax) 1 cap AC MEALS AND BEDTIME PO Last administered on 08/03/18 09:43; Admin Dose 1 CAP; Start 07/31/18 at 11:30 Ibuprofen (Motrin) 400 mg Q6H PRN PO MILD PAIN(1-3) OR TEMP>38C Last administered on 08/02/18 07:36; Admin Dose 400 MG; Start 08/02/18 at 01:00 Polyethylene Glycol (Miralax) 17 gm DAILY PO Last administered on 08/03/18 09:52; Admin Dose 17 GM; Start 08/03/18 at 09:00 Lubiprostone (Amitiza) 24 mcg BID PO Last administered on 08/03/18 09:43; Admi n Dose 24 MCG; Start 08/03/18 at 09:00 Ceftriaxone Sodium 50 ml @ 100 mls/hr Q24H IVPB Last administered on 08/03/18 22:32; Admin Dose 100 MLS/HR; Start 08/03/18 at 20:00 CLARI KRISHNA Aug 04, 2018 06:10
[2018-08-04] MEDS: CHLORDIAZEPOXIDE/CLIDINIUM CAP PO SCH ×4 (06:59→21:00)
[2018-08-04 08:23] VITALS: BP 125/71; PULSE 85
[2018-08-04] MEDS: POLYETHYLENE GLYCOL 17 GM PACKET PO SCH (09:19)
[2018-08-04] MEDS: LUBIPROSTONE 24 MCG CAP PO SCH ×2 (09:19→21:35)
--- NOTE | 2018-08-04 09:25 | CONS ---
Assessment/Plan Assessment/Plan Hospital Course (Demo Recall) 68 yo female presents with abdominal pain Interval hx: Patient states her abdominal pain is considerably improved. She says it was over a 10/10 and is now about a 5/10 in lower abd intermittently. No nausea. C/o headaches, CT unremarkable. C/O rt breast pain. IMPRESSION: 1. Cholelithiasis with possible cholecystitis -MRCP negative -HIDA unremarkable 2. Abdominal pain. -improved, now lower abd 3. Anemia, acute -will monitor closely -neg FOB 4. Hypercalcemia. 5. Multiple cysts on liver noted on MRCP 6. Diarrhea-resolved Plan Continue librex and pain management Continue current care If abdominal pain does not improve or if it worsen we will consider colonoscopy. (pt had routine colonoscopy one year ago at [facility], without any abnormal findings as far as pt remembers) Pt examined and plan of care discussed with Dr. Velasco Consultation Date/Type/Reason Admit Date/Time Jul 27, 2018 at 04:55 Initial Consult Date 07/28/18 Requesting Provider: CLARI KRISHNA Date/Time of Note DATE: 08/04/18 TIME: 09:21 Exam/Review of Systems Exam Vitals Vital Signs Date Temp Pulse Resp B/P (MAP) Pulse Ox O2 O2 Flow FiO2 Time Delivery Rate 08/04/18 98.0 85 125/71 98 08:23 (89) 08/04/18 18 03:06 08/01/18 Room Air 02:57 Intake and Output 08/03/18 08/03/18 08/04/18 1515:00 23:00 07:00 IntakeIntake Total 580 ml 440 ml 250 ml BalanceBalance 580 ml 440 ml 250 ml Constitutional: alert, oriented Psych: no complaints Head: normocephalic Eyes: nl sclera, PERRL Respiratory: normal air movement Cardiovascular: regular rate and rhythm Gastrointestinal: soft, non-tender, bowel sounds Musculoskeletal: nl gait and stance Extremities: normal pulses Neurological: nl mental status Results Result Diagram: 08/02/18 0704 08/02/18 0704 Results 24hrs Laboratory Tests Test 08/03/18 21:30 Stool Occult Blood NEGATIVE Medications Medication Current Medications Morphine Sulfate (morphine) 2 mg Q4H PRN IV SEVERE PAIN LEVEL 7-10 Last a dministered on 08/04/18at 09:19; Admin Dose 2 MG; Start 07/27/18 at 07:00 Ondansetron HCl (Zofran Inj) 4 mg Q6H PRN IV NAUSEA AND/OR VOMITING Last administered on 07/28/18 13:55; Admin Dose 4 MG; Start 07/27/18 at 07:00 Metronidazole 100 ml @ 100 mls/hr Q6 IVPB Last administered on 08/04/18 05:4 7; Admin Dose 100 MLS/HR; Start 07/27/18 at 12:00 Acetaminophen/ Hydrocodone Bitart ([place] (5/325)) 1 tab Q6H PRN PO breakthrough pain Last administered on 08/04/18 06:05; Admin Dose 1 TAB; Start 07/27/18 at 16:00 Docusate Sodium (Colace) 100 mg BID PRN PO CONSTIPATION Last administered on 08/03/18 06:16; Admin Dose 100 MG; Start 07/27/18 at 16:00 Pantoprazole (Protonix Iv) 40 mg BID@06,18 IV Last administered on 08/03/18 17:56; Admin Dose 40 MG; Start 07/29/18 at 18:00 Chlordiazepoxide/ Clidinium (Librax) 1 cap AC MEALS AND BEDTIME PO Last administered on 08/03/18 09:43; Admin Dose 1 CAP; Start 07/31/18 at 11:30 Ibuprofen (Motrin) 400 mg Q6H PRN PO MILD PAIN(1-3) OR TEMP>38C Last administered on 08/02/18 07:36; Admin Dose 400 MG; Start 08/02/18 at 01:00 Polyethylene Glycol (Miralax) 17 gm DAILY PO Last administered on 08/04/18 09:19; Admin Dose 17 GM; Start 08/03/18 at 09:00 Lubiprostone (Amitiza) 24 mcg BID PO Last administered on 08/04/18 09:19; Admin Dose 24 MCG; Start 08/03/18 at 09:00 Ceftriaxone Sodium 50 ml @ 100 mls/hr Q24H IVPB Last administered on 08/03/18 22:32; Admin Dose 100 MLS/HR; Start 08/03/18 at 20:00 GANGA ANSARI Aug 04, 2018 09:25
--- NOTE | 2018-08-04 10:17 | PN ---
Date/Time of Note Date/Time of Note DATE: 08/04/18 TIME: 10:16 Assessment/Plan Lines/Catheters IV Catheter Type (from Nrs): Saline Lock Cruz in Place (from Nrs): No Assessment/Plan Chief Complaint/Hosp Course 1. Abdominal pain ? etiology. Non surgical at this time (doubt gallbladder) -Consider HIDA c CCK if pain not improving -GI f/u (antispasmodics, ..) -?Colonoscopy if pain not improving -PPI -Pain management 2. Cholelithiasis: HIDA negative; MRCP noted without choledocholithiasis or cholecystitis -No emergent surgical intervention necessary at this time > may consider cholecystectomy at some point if not improving 3. Hypochromic anemia: -Monitor and transfuse as needed 4. Breast pain -imaging pending Thank you Subjective 24 Hr Interval Summary Pain improved overall but currently mostly in lower quadrants > difficult to sit. Antispasmodics per GI. GI considering colonoscopy. Breast pain. US pending. No fevers, chills, sob, congested cough, cp, palpitations, penaloza, dizziness, n/v/d/dysuria. Bowel function. Exam/Review of Systems Vital Signs Vitals Vital Signs Date Temp Pulse Resp B/P (MAP) Pulse Ox O2 O2 Flow FiO2 Time Delivery Rate 08/04/18 98.0 85 125/71 98 08:23 (89) 08/04/18 18 03:06 08/01/18 Room Air 02:57 Intake and Output 08/03/18 08/03/18 08/04/18 1515:00 23:00 07:00 IntakeIntake Total 580 ml 440 ml 250 ml BalanceBalance 580 ml 440 ml 250 ml Exam Free Text/Dictation Constitutional: alert, oriented Psych: anxiety Head: normocephalic, atraumatic Eyes: nl conjunctiva, EOMI, nl lids, nl sclera ENMT: nl external ears & nose, nl lips & teeth, mucosa pink and moist Neck: supple, non-tender; No jvd Respiratory: normal air movement; No congested cough Cardiovascular: regular rate and rhythm, nl pulses; No edema Gastrointestinal: soft, min tender in lower quadrants without rebound/guarding/rigidity; ND Genitourinary - Female: nl external genitalia Musculoskeletal: nl extremities to inspection; No joint tenderness, No muscle weakness Extremities: normal pulses; No edema Neurological: nl mental status, nl speech, nl strength Skin: nl turgor; No rash or lesions Lymph: nl lymph nodes Results Result Diagram: 08/02/18 0704 08/02/18 0704 ROM MCALLISTER MD Aug 04, 2018 10:17
--- NOTE | 2018-08-04 15:13 | CONS ---
Assessment/Plan Assessment/Plan Hospital Course (Demo Recall) assessment/impression - R breast mass/swelling, R axillary lymphadenopathy - h/o R mastitis, Pt took Bactrim x 7 days in 07/2018 - cholelithiasis without definite e/o acute cholecystitis, choledocholithiasis and cholangitis, clinically improved - COPD - lung CA - CAD recommendations - Although her breast ultrasound on 07/26/2018 did not show mass/fluid collection, I recommend repeat imaging or a different radiologic modality to eval a discrete mass. I recommend mammogram too but [facility] does not do mammogram - I recommend surgical consult for possible biopsy/drainage - continue ceftriaxone (08/03/2018-) and metronidazole (07/27/2018-); I will change her antibiotic regimen to focus skin and soft tissue bacteria if her breast discomfort and mass persists management d/w Pt; in formed Dr. Recinos Consultation Date/Type/Reason Admit Date/Time Jul 27, 2018 at 04:55 Initial Consult Date 08/03/18 Type of Consult ID Requesting Provider: CLARI KRISHNA Date/Time of Note DATE: 08/04/18 TIME: 15:13 24 HR Interval Summary Constitutional: no complaints Detailed Summary Eyes: no complaints ENT: no complaints Respiratory: no complaints Cardiovascular: no complaints Gastrointestinal: pain (less abdominal pain); No nausea Genitourinary: no complaints Musculoskeletal: no complaints Skin: other (+discomfort of R breast) Neurologic: no complaints Lymphatic: other (R axillary AUGUST) Exam/Review of Systems Exam Vitals Vital Signs Date Temp Pulse Resp B/P (MAP) Pulse Ox O2 O2 Flow FiO2 Time Delivery Rate 08/04/18 98.0 85 125/71 98 08:23 (89) 08/04/18 18 03:06 08/01/18 Room Air 02:57 Intake and Output 08/03/18 08/03/18 08/04/18 1515:00 23:00 07:00 IntakeIntake Total 580 ml 440 ml 250 ml BalanceBalance 580 ml 440 ml 250 ml Constitutional: alert, oriented, frail Psych: no complaints, nl mood/affect Head: normocephalic, atraumatic Eyes: nl conjunctiva, nl lids, nl sclera ENMT: nl external ears & nose, nl nasal mucosa & septum, mucosa pink and moist Neck: other (not swollen) Respiratory: normal air movement Cardiovascular: nl pulses; No edema Gastrointestinal: soft; No distended, No tender Musculoskeletal: nl extremities to inspection Extremities: No edema Neurological: nl mental status Skin: other (+mass at 4-8 o'clock position of R breat, non-TTP) Results Result Diagram: 08/04/18 1220 08/04/18 1220 Results 24hrs Laboratory Tests Test 08/03/18 21:30 08/04/18 12:20 Stool Occult Blood NEGATIVE White Blood Count 5.3 Red Blood Count 3.73 L Hemoglobin 11.0 L Hematocrit 34.2 L Mean Corpuscular Volume 91.7 Mean Corpuscular Hemoglobin 29.5 Mean Corpuscular Hemoglobin Concent 32.2 Red Cell Distribution Width 15.6 H Platelet Count 436 H Mean Platelet Volume 9.3 Immature Granulocytes % 0.400 Neutrophils % 64.7 Lymphocytes % 17.4 Monocytes % 15.4 H Eosinophils % 1.7 Basophils % 0.4 Nucleated Red Blood Cells % 0.0 Immature Granulocytes # 0.020 Neutrophils # 3.5 Lymphocytes # 0.9 Monocytes # 0.8 Eosinophils # 0.1 Basophils # 0.0 Nucleated Red Blood Cells # 0.0 Sodium Level 140 Potassium Level 4.2 Chloride Level 104 Carbon Dioxide Level 27 Anion Gap 9 Blood Urea Nitrogen 15 Creatinine 0.84 Est Glomerular Filtrat Rate mL/min > 60 Glucose Level 97 Calcium Level 9.9 Carcinoembryonic Antigen 2.8 Medications Medication Current Medications Morphine Sulfate (morphine) 2 mg Q4H PRN IV SEVERE PAIN LEVEL 7-10 Last administered on 08/04/18 13:13; Admin Dose 2 MG; Start 07/27/18 at 07:00 Ondansetron HCl (Zofran Inj) 4 mg Q6H PRN IV NAUSEA AND/OR VOMITING Last administered on 07/28/18 13:55; Admin Dose 4 MG; Start 07/27/18 at 07:00 Metronidazole 100 ml @ 100 mls/hr Q6 IVPB Last administered on 08/04/18 11:55; Admin Dose 100 MLS/HR; Start 07/27/18 at 12:00 Acetaminophen/ Hydrocodone Bitart ([place] (5/325)) 1 tab Q6H PRN PO breakthrough pain Last administered on 08/04/18 06:05; Admin Dose 1 TAB; Start 07/27/18 at 16:00 Docusate Sodium (Colace) 100 mg BID PRN PO CONSTIPATION Last administered on 08/03/18 06:16; Admin Dose 100 MG; Start 07/27/18 at 16:00 Pantoprazole (Protonix Iv) 40 mg BID@06,18 IV Last administered on 08/03/18 17:56; Admin Dose 40 MG; Start 07/29/18 at 18:00 Chlordiazepoxide/ Clidinium (Librax) 1 cap AC MEALS AND BEDTIME PO Last administered on 08/03/18 09:43; Admin Dose 1 CAP; Start 07/31/18 at 11:30 Ibuprofen (Motrin) 400 mg Q6H PRN PO MILD PAIN(1-3) OR TEMP>38C Last administered on 08/02/18at 07:36; Admin Dose 400 MG; Start 08/02/18 at 01:00 Polyethylene Glycol (Miralax) 17 gm DAILY PO Last administered on 08/04/18 09:19; Admin Dose 17 GM; Start 08/03/18 at 09:00 Lubiprostone (Amitiza) 24 mcg BID PO Last administered on 08/04/18 09:19; Admin Dose 24 MCG; Start 08/03/18 at 09:00 Ceftriaxone Sodium 50 ml @ 100 mls/hr Q24H IVPB Last administered on 08/03/18 22:32; Admin Dose 100 MLS/HR; Start 08/03/18 at 20:00 DAKOTA MCCLAIN M.D. Aug 04, 2018 15:13
[2018-08-04 15:24] VITALS: BP 111/58; PULSE 99; RESP 19
--- NOTE | 2018-08-04 16:05 | PSY ---
Date/Time of Note Date/Time of Note DATE: 08/04/18 TIME: 15:56 Psychiatric Subjective Eval Consent Pt consented to telemedicine: No Subjective Evaluation Patient location: inpatient Chief Complaint: abdominal pain x 3 days. also c/o pain left breast lump History of present illness Patient is a 68-year-old female with a history of COPD, lung cancer, admitted for diarrhea, N/V. On a face to face evaluation, patient reports long history of mental illness, and on Zyprexa. She denies suicidal ideation, denies feeling hopeless, denies hearing voices, and contracted for safety Past psychiatric history History of Schizophrenia Hospitalization: no Medical history Problems Medical Problems: (1) Abdominal pain Status: Acute (2) Abdominal wall contusion Status: Acute (3) Breast mass Status: Acute (4) Breast pain Status: Acute (5) COPD with exacerbation Status: Acute (6) Diarrhea Status: Acute (7) Mastitis Status: Acute (8) Rectal bleeding Status: Acute (9) Shortness of breath Status: Acute (10) Tooth disease Status: Acute Allergies: Coded Allergies: No Known Drug Allergy (Unverified Allergy, Unknown, 07/18/18) Substance Abuse Substance abuse history: No Prior substance abuse treatmen: No Social History Marital status: other DPA/Conservatorship: No Psychiatric Objective Eval Review of Systems: Review of Systems: Not Applicable Physical Examination: Energy: Adequate Interest: Adequate Mental Status Examination: Appearance: Poor Hygiene Eye Contact: Fair Psychomotor Activity: Slow Behavior: Suspicious, Guarded Speech: Soft AFFECT: Constricted Orientation: x4 Cognition: Alert Insight: Moderate Judgement: Moderate Attention Span: Distractible Laboratory Results Laboratory Tests Test 08/03/18 21:30 08/04/18 12:20 Stool Occult Blood NEGATIVE White Blood Count 5.3 10^3/ul Red Blood Count 3.73 10^6/ul Hemoglobin 11.0 g/dl Hematocrit 34.2 % Mean Corpuscular Volume 91.7 fl Mean Corpuscular Hemoglobin 29.5 pg Mean Corpuscular Hemoglobin Concent 32.2 g/dl Red Cell Distribution Width 15.6 % Platelet Count 436 10^3/UL Mean Platelet Volume 9.3 fl Immature Granulocytes % 0.400 % Neutrophils % 64.7 % Lymphocytes % 17.4 % Monocytes % 15.4 % Eosinophils % 1.7 % Basophils % 0.4 % Nucleated Red Blood Cells % 0.0 /100WBC Immature Granulocytes # 0.020 10^3/ul Neutrophils # 3.5 10^3/ul Lymphocytes # 0.9 10^3/ul Monocytes # 0.8 10^3/ul Eosinophils # 0.1 10^3/ul Basophils # 0.0 10^3/ul Nucleated Red Blood Cells # 0.0 10^3/ul Sodium Level 140 mmol/L Potassium Level 4.2 mmol/L Chloride Level 104 mmol/L Carbon Dioxide Level 27 mmol/L Anion Gap 9 Blood Urea Nitrogen 15 mg/dl Creatinine 0.84 mg/dl Est Glomerular Filtrat Rate mL/min > 60 mL/min Glucose Level 97 mg/dl Calcium Level 9.9 mg/dl Carcinoembryonic Antigen 2.8 ng/ml Assessment and Plan Assessment/Diagnosis Diagnosis Schizophrenia Recommendation/Plan Medication Management Zyprexa 5mg QHS, Transfer to [facility] Multiple antipsychotics: No Discharge Disposition: Other Legal Status: Voluntary (Does not meet criteria for 5150 hold) DI HARGROVE NP Aug 04, 2018 16:05
--- NOTE | 2018-08-04 16:55 | CONS ---
Assessment/Plan Assessment/Plan Hospital Course (Demo Recall) assessment/impression - R breast mass/swelling, R axillary lymphadenopathy - h/o R mastitis, Pt took Bactrim x 7 days in 07/2018 - cholelithiasis without definite e/o acute cholecystitis, choledocholithiasis and cholangitis, clinically improved - COPD - lung CA - CAD revised recommendations - I reviewed the result of breast ultrasound. It did not show a discrete mass, abscess or fluid collection. I recommend referral to mammogram and breast specialist, either inpatient or outpatient. [facility] does not do mammogram. Pt called my office number asking for biopsy but I informed Pt that this would be coordinated by his admitting provider. - continue ceftriaxone (08/03/2018-) and metronidazole (07/27/2018-) management d/w Pt and her RN; in formed Dr. Recinos Consultation Date/Type/Reason Admit Date/Time Jul 27, 2018 at 04:55 Initial Consult Date 08/03/18 Type of Consult ID Requesting Provider: CLARI KRISHNA Date/Time of Note DATE: 08/04/18 TIME: 16:53 Exam/Review of Systems Exam Vitals Vital Signs Date Temp Pulse Resp B/P (MAP) Pulse Ox O2 O2 Flow FiO2 Time Delivery Rate 08/04/18 97.3 99 19 111/58 95 Room Air 15:24 (75) Intake and Output 08/03/18 08/03/18 08/04/18 1515:00 23:00 07:00 IntakeIntake Total 580 ml 440 ml 250 ml BalanceBalance 580 ml 440 ml 250 ml Results Result Diagram: 08/04/18 1220 08/04/18 1220 Results 24hrs Laboratory Tests Test 08/03/18 21:30 08/04/18 12:20 Stool Occult Blood NEGATIVE White Blood Count 5.3 Red Blood Count 3.73 L Hemoglobin 11.0 L Hematocrit 34.2 L Mean Corpuscular Volume 91.7 Mean Corpuscular Hemoglobin 29.5 Mean Corpuscular Hemoglobin Concent 32.2 Red Cell Distribution Width 15.6 H Platelet Count 436 H Mean Platelet Volume 9.3 Immature Granulocytes % 0.400 Neutrophils % 64.7 Lymphocytes % 17.4 Monocytes % 15.4 H Eosinophils % 1.7 Basophils % 0.4 Nucleated Red Blood Cells % 0.0 Immature Granulocytes # 0.020 Neutrophils # 3.5 Lymphocytes # 0.9 Monocytes # 0.8 Eosinophils # 0.1 Basophils # 0.0 Nucleated Red Blood Cells # 0.0 Sodium Level 140 Potassium Level 4.2 Chloride Level 104 Carbon Dioxide Level 27 Anion Gap 9 Blood Urea Nitrogen 15 Creatinine 0.84 Est Glomerular Filtrat Rate mL/min > 60 Glucose Level 97 Calcium Level 9.9 Carcinoembryonic Antigen 2.8 Medications Medication Current Medications Morphine Sulfate (morphine) 2 mg Q4H PRN IV SEVERE PAIN LEVEL 7-10 Last administered on 08/04/18 13:13; Admin Dose 2 MG; Start 07/27/18 at 07:00 Ondansetron HCl (Zofran Inj) 4 mg Q6H PRN IV NAUSEA AND/OR VOMITING Last administered on 07/28/18 13:55; Admin Dose 4 MG; Start 07/27/18 at 07:00 Metronidazole 100 ml @ 100 mls/hr Q6 IVPB Last administered on 08/04/18 11:55; Admin Dose 100 MLS/HR; Start 07/27/18 at 12:00 Acetaminophen/ Hydrocodone Bitart ([place] (5/325)) 1 tab Q6H PRN PO breakthrough pain Last administered on 08/04/18 16:34; Admin Dose 1 TAB; Start 07/27/18 at 16:00 Docusate Sodium (Colace) 100 mg BID PRN PO CONSTIPATION Last administered on 08/03/18 06:16; Admin Dose 100 MG; Start 07/27/18 at 16:00 Pantoprazole (Protonix Iv) 40 mg BID@06,18 IV Last administered on 08/03/18 17:56; Admin Dose 40 MG; Start 07/29/18 at 18:00 Chlordiazepoxide/ Clidinium (Librax) 1 cap AC MEALS AND BEDTIME PO Last administered on 08/03/18 09:43; Admin Dose 1 CAP; Start 07/31/18 at 11:30 Ibuprofen (Motrin) 400 mg Q6H PRN PO MILD PAIN(1-3) OR TEMP>38C Last administered on 08/02/18 07:36; Admin Dose 400 MG; Start 08/02/18 at 01:00 Polyethylene Glycol (Miralax) 17 gm DAILY PO Last administered on 08/04/18 09:19; Admin Dose 17 GM; Start 08/03/18 at 09:00 Lubiprostone (Amitiza) 24 mcg BID PO Last administered on 08/04/18at 09:19; Admin Dose 24 MCG; Start 08/03/18 at 09:00 Ceftriaxone Sodium 50 ml @ 100 mls/hr Q24H IVPB Last administered on 08/03/18at 22:32; Admin Dose 100 MLS/HR; Start 08/03/18 at 20:00 Olanzapine (Zyprexa) 5 mg QHS PO ; Start 08/04/18 at 21:00 DAKOTA MCCLAIN M.D. Aug 04, 2018 16:55
[2018-08-04] MEDS: OLANZAPINE 5 MG TAB PO SCH (21:00)
[2018-08-04] MEDS: CEFTRIAXONE 1 GM/50 ML (PMX) 50 ML IVPB SCH (21:35)
[2018-08-04 21:42] VITALS: BP 107/61; PULSE 97; RESP 16
[2018-08-05] MEDS: metroNIDAZOLE 500 MG/NS (PMX) 100 ML IVPB SCH ×5 (01:22→23:08)
[2018-08-05] MEDS: IBUPROFEN 400 MG TAB PO PRN ×2 (01:24→09:33)
[2018-08-05] MEDS: morphine 2 MG INJ IV PRN ×5 (06:06→23:09)
[2018-08-05] MEDS: PANTOPRAZOLE 40 MG INJ IV SCH ×2 (06:06→17:07)
[2018-08-05] MEDS: CHLORDIAZEPOXIDE/CLIDINIUM CAP PO SCH ×4 (07:30→20:49)
[2018-08-05 08:18] VITALS: BP 117/58; PULSE 79; RESP 18
--- NOTE | 2018-08-05 08:28 | PN ---
Date/Time of Note Date/Time of Note DATE: 08/05/18 TIME: 08:20 Assessment/Plan VTE Prophylaxis Risk score (from Nsg)>0 risk: 3 SCD applied (from Nsg): Yes Lines/Catheters IV Catheter Type (from Nrsg): Peripheral IV Urinary Cath still in place: No Assessment/Plan Assessment/Plan - cholecystitis - id on case - HIDA scan - cholelithiasis -GI follows - per surgery consult - Acute Headache- none at present - ok with pain med - CT brain showed 1. Mild generalized cerebral volume loss. 2. No evidence of intracranial masses hemorrhages or midline shift. - Right breast pain/swelling- CEA 2.8 wnl -08/04/2018 US-No sonographic evidence of malignancy. No interval change. No abscess, fluid collection, or hematoma. - mammogram recommended ; prescription in patient chart - 07/26/2018- right breast US -1. No mass or fluid collection identified. - 2. The ultrasound does not take a place of a conventional digital minimal mammogram. The patient is strongly recommended to obtain digital mammography for more thorough evaluation of the right breast lump. Neoplasm is not excluded on the basis of ultrasound. - Anemia- Hgb stable- 9.4 Result Diagram: 08/05/18 0537 08/05/18 0537 Results 24hrs Laboratory Tests Test 08/04/18 12:20 08/05/18 05:37 White Blood Count 5.3 5.1 Red Blood Count 3.73 L 3.39 L Hemoglobin 11.0 L 10.1 L Hematocrit 34.2 L 30.6 L Mean Corpuscular Volume 91.7 90.3 Mean Corpuscular Hemoglobin 29.5 29.8 Mean Corpuscular Hemoglobin Concent 32.2 33.0 Red Cell Distribution Width 15.6 H 15.4 H Platelet Count 436 H 399 Mean Platelet Volume 9.3 9.4 Immature Granulocytes % 0.400 0.200 Neutrophils % 64.7 57.8 Lymphocytes % 17.4 23.3 Monocytes % 15.4 H 15.7 H Eosinophils % 1.7 2.2 Basophils % 0.4 0.8 Nucleated Red Blood Cells % 0.0 0.0 Immature Granulocytes # 0.020 0.010 Neutrophils # 3.5 3.0 Lymphocytes # 0.9 1.2 Monocytes # 0.8 0.8 Eosinophils # 0.1 0.1 Basophils # 0.0 0.0 Nucleated Red Blood Cells # 0.0 0.0 Sodium Level 140 138 Potassium Level 4.2 4.4 Chloride Level 104 106 Carbon Dioxide Level 27 24 Anion Gap 9 8 Blood Urea Nitrogen 15 19 Creatinine 0.84 0.87 Est Glomerular Filtrat Rate mL/min > 60 > 60 Glucose Level 97 92 Calcium Level 9.9 9.5 Carcinoembryonic Antigen 2.8 Total Bilirubin 0.2 Direct Bilirubin 0.00 Indirect Bilirubin 0.2 Aspartate Amino Transf (AST/SGOT) 29 Alanine Aminotransferase (ALT/SGPT) 18 Alkaline Phosphatase 66 Total Protein 6.8 Albumin 3.6 Globulin 3.20 Albumin/Globulin Ratio 1.12 Subjective 24 Hr Interval Summary Free Text/Dictation nad headache controlled with pain med Exam/Review of Systems Exam Vitals Vital Signs Date Temp Pulse Resp B/P (MAP) Pulse Ox O2 O2 Flow FiO2 Time Delivery Rate 08/05/18 97.9 79 18 117/58 97 Room Air 08:18 (77) Intake and Output 08/04/18 08/04/18 08/05/18 1515:00 23:00 07:00 IntakeIntake Total 300 ml 370 ml 100 ml OutputOutput Total 1 ml BalanceBalance 299 ml 370 ml 100 ml Results Results 24hrs Laboratory Tests Test 08/04/18 12:20 08/05/18 05:37 White Blood Count 5.3 5.1 Red Blood Count 3.73 L 3.39 L Hemoglobin 11.0 L 10.1 L Hematocrit 34.2 L 30.6 L Mean Corpuscular Volume 91.7 90.3 Mean Corpuscular Hemoglobin 29.5 29.8 Mean Corpuscular Hemoglobin Concent 32.2 33.0 Red Cell Distribution Width 15.6 H 15.4 H Platelet Count 436 H 399 Mean Platelet Volume 9.3 9.4 Immature Granulocytes % 0.400 0.200 Neutrophils % 64.7 57.8 Lymphocytes % 17.4 23.3 Monocytes % 15.4 H 15.7 H Eosinophils % 1.7 2.2 Basophils % 0.4 0.8 Nucleated Red Blood Cells % 0.0 0.0 Immature Granulocytes # 0.020 0.010 Neutrophils # 3.5 3.0 Lymphocytes # 0.9 1.2 Monocytes # 0.8 0.8 Eosinophils # 0.1 0.1 Basophils # 0.0 0.0 Nucleated Red Blood Cells # 0.0 0.0 Sodium Level 140 138 Potassium Level 4.2 4.4 Chloride Level 104 106 Carbon Dioxide Level 27 24 Anion Gap 9 8 Blood Urea Nitrogen 15 19 Creatinine 0.84 0.87 Est Glomerular Filtrat Rate mL/min > 60 > 60 Glucose Level 97 92 Calcium Level 9.9 9.5 Carcinoembryonic Antigen 2.8 Total Bilirubin 0.2 Direct Bilirubin 0.00 Indirect Bilirubin 0.2 Aspartate Amino Transf (AST/SGOT) 29 Alanine Aminotransferase (ALT/SGPT) 18 Alkaline Phosphatase 66 Total Protein 6.8 Albumin 3.6 Globulin 3.20 Albumin/Globulin Ratio 1.12 Medications Medication Current Medications Morphine Sulfate (morphine) 2 mg Q4H PRN IV SEVERE PAIN LEVEL 7-10 Last administered on 08/05/18 06:06; Admin Dose 2 MG; Start 07/27/18 at 07:00 Ondansetron HCl (Zofran Inj) 4 mg Q6H PRN IV NAUSEA AND/OR VOMITING Last a dministered on 07/28/18 13:55; Admin Dose 4 MG; Start 07/27/18 at 07:00 Metronidazole 100 ml @ 100 mls/hr Q6 IVPB Last administered on 08/05/18 06:06; Admin Dose 100 MLS/HR; Start 07/27/18 at 12:00 Acetaminophen/ Hydrocodone Bitart ([place] (5/325)) 1 tab Q6H PRN PO breakthrough pain Last administered on 08/04/18 22:47; Admin Dose 1 TAB; Start 07/27/18 at 16:00 Docusate Sodium (Colace) 100 mg BID PRN PO CONSTIPATION Last administered on 08/03/18 06:16; Admin Dose 100 MG; Start 07/27/18 at 16:00 Pantoprazole (Protonix Iv) 40 mg BID@06,18 IV Last administered on 08/05/18 06:06; Admin Dose 40 MG; Start 07/29/18 at 18:00 Chlordiazepoxide/ Clidinium (Librax) 1 cap AC MEALS AND BEDTIME PO Last administered on 08/03/18 09:43; Admin Dose 1 CAP; Start 07/31/18 at 11:30 Ibuprofen (Motrin) 400 mg Q6H PRN PO MILD PAIN(1-3) OR TEMP>38C Last administered on 08/05/18at 01:24; Admin Dose 400 MG; Start 08/02/18 at 01:00 Polyethylene Glycol (Miralax) 17 gm DAILY PO Last administered on 08/04/18at 09:19; Admin Dose 17 GM; Start 08/03/18 at 09:00 Lubiprostone (Amitiza) 24 mcg BID PO Last administered on 08/04/18at 21:35; Admin Dose 24 MCG; Start 08/03/18 at 09:00 Ceftriaxone Sodium 50 ml @ 100 mls/hr Q24H IVPB Last administered on 08/04/18at 21:35; Admin Dose 100 MLS/HR; Start 08/03/18 at 20:00 Olanzapine (Zyprexa) 5 mg QHS PO ; Start 08/04/18 at 21:00 CLARI KRISHNA August 05, 2018 08:28
[2018-08-05] MEDS: LUBIPROSTONE 24 MCG CAP PO SCH ×2 (08:36→20:49)
[2018-08-05] MEDS: POLYETHYLENE GLYCOL 17 GM PACKET PO SCH (08:36)
[2018-08-05] MEDS: HYDROCODONE/APAP (5/325) TAB PO PRN ×2 (09:32→17:15)
--- NOTE | 2018-08-05 11:05 | PN ---
Date/Time of Note Date/Time of Note DATE: 08/05/18 TIME: 11:00 Assessment/Plan Lines/Catheters IV Catheter Type (from [facility]): Peripheral IV Cruz in Place (from Nrs): No Assessment/Plan Chief Complaint/Hosp Course 1. Abdominal pain ? etiology. Non surgical at this time (doubt gallbladder): improving -Consider HIDA c CCK if pain not improving/worsens -GI f/u (antispasmodics, ..)> ?Colonoscopy if pain not improving -PPI -Pain management 2. Cholelithiasis: HIDA negative; MRCP noted without choledocholithiasis or cholecystitis -No emergent surgical intervention necessary at this time > may consider cholecystectomy at some point if not improving 3. Hypochromic anemia: -Monitor and transfuse as needed 4. Breast pain: us noted -discussed biopsy w pt, currently refusing Thank you. Patient seen and examined in collaboration with Dr. Rosalino Portillo. Subjective 24 Hr Interval Summary Abdominal pain improving. Headaches. No fevers, chills, sob, congested cough, cp, palpitations, penaloza, dizziness, n/v/d/dysuria, right nipple drainage/ breast pain. Exam/Review of Systems Vital Signs Vitals Vital Signs Date Temp Pulse Resp B/P (MAP) Pulse Ox O2 O2 Flow FiO2 Time Delivery Rate 08/05/18 97.9 79 18 117/58 97 Room Air 08:18 (77) Intake and Output 08/04/18 08/04/18 08/05/18 1414:59 22:59 06:59 IntakeIntake Total 300 ml 370 ml 100 ml OutputOutput Total 1 ml BalanceBalance 299 ml 370 ml 100 ml Exam Free Text/Dictation Constitutional: alert, oriented Psych: anxiety Head: normocephalic, atraumatic Eyes: nl conjunctiva, EOMI, nl lids, nl sclera ENMT: nl external ears & nose, nl lips & teeth, mucosa pink and moist Neck: supple, non-tender; No jvd Chest: right breast mobile mass noted; no nipple drainage/tenderness Respiratory: normal air movement; No congested cough Cardiovascular: regular rate and rhythm, nl pulses; No edema Gastrointestinal: soft, min tender in lower quadrants without rebound/guarding/rigidity; ND Genitourinary - Female: nl external genitalia Musculoskeletal: nl extremities to inspection; No joint tenderness, No muscle weakness Extremities: normal pulses; No edema Neurological: nl mental status, nl speech, nl strength Skin: nl turgor; No rash or lesions Lymph: nl lymph nodes Results Result Diagram: 08/05/18 0537 08/05/18 0537 ROC MANNING NP August 05, 2018 11:05
--- NOTE | 2018-08-05 14:37 | CONS ---
Assessment/Plan Assessment/Plan Hospital Course (Demo Recall) assessment/impression - R breast mass/swelling, R axillary lymphadenopathy - h/o R mastitis, Pt took Bactrim x 7 days in 07/2018 - ?questionable R breast mass; TORRI on 08/04/2018 did not identify mass/fluid collection/abscess - cholelithiasis without definite e/o acute cholecystitis, choledocholithiasis and cholangitis, clinically improved - COPD - lung CA - CAD revised recommendations - I recommend mammogram (it is not available at [facility]) - continue ceftriaxone (08/03/2018-) and metronidazole (07/27/2018-) - when Pt is ready to go home, I recommend PO cephalexin management d/w Pt and his private RN Consultation Date/Type/Reason Admit Date/Time Jul 27, 2018 at 04:55 Initial Consult Date 08/03/18 Type of Consult ID Requesting Provider: CLARI KRISHNA Date/Time of Note DATE: 08/05/18 TIME: 14:32 24 HR Interval Summary Constitutional: improved Detailed Summary Eyes: no complaints ENT: no complaints Respiratory: no complaints Cardiovascular: no complaints Gastrointestinal: decreased appetite; No diarrhea, No nausea Genitourinary: no complaints Musculoskeletal: no complaints Skin: other (swelling and discomfort of R breast has resolved) Neurologic: no complaints Exam/Review of Systems Exam Vitals Vital Signs Date Temp Pulse Resp B/P (MAP) Pulse Ox O2 O2 Flow FiO2 Time Delivery Rate 08/05/18 97.9 79 18 117/58 97 Room Air 08:18 (77) Intake and Output 08/04/18 08/04/18 08/05/18 1515:00 23:00 07:00 IntakeIntake Total 300 ml 370 ml 100 ml OutputOutput Total 1 ml BalanceBalance 299 ml 370 ml 100 ml Constitutional: alert, frail Psych: no complaints, nl mood/affect Head: normocephalic, atraumatic Eyes: nl conjunctiva, nl lids, nl sclera ENMT: nl external ears & nose, nl nasal mucosa & septum, mucosa pink and moist Neck: supple, other (not swollen) Respiratory: normal air movement, diminished breath sounds Cardiovascular: regular rate and rhythm, nl pulses Gastrointestinal: soft, non-tender; No distended, No tender Musculoskeletal: nl extremities to inspection Extremities: No edema Neurological: SHOWER DOORS AND PANELS FABRICATOR II-XII intact, nl mental status Skin: nl turgor, other (+R breast mass at 4 c'colock to 8 o'clock position); No rash or lesions Results Result Diagram: 08/05/1853608/05/1837 Results 24hrs Laboratory Tests Test 08/05/18 05:37 White Blood Count 5.1 Red Blood Count 3.39 L Hemoglobin 10.1 L Hematocrit 30.6 L Mean Corpuscular Volume 90.3 Mean Corpuscular Hemoglobin 29.8 Mean Corpuscular Hemoglobin Concent 33.0 Red Cell Distribution Width 15.4 H Platelet Count 399 Mean Platelet Volume 9.4 Immature Granulocytes % 0.200 Neutrophils % 57.8 Lymphocytes % 23.3 Monocytes % 15.7 H Eosinophils % 2.2 Basophils % 0.8 Nucleated Red Blood Cells % 0.0 Immature Granulocytes # 0.010 Neutrophils # 3.0 Lymphocytes # 1.2 Monocytes # 0.8 Eosinophils # 0.1 Basophils # 0.0 Nucleated Red Blood Cells # 0.0 Sodium Level 138 Potassium Level 4.4 Chloride Level 106 Carbon Dioxide Level 24 Anion Gap 8 Blood Urea Nitrogen 19 Creatinine 0.87 Est Glomerular Filtrat Rate mL/min > 60 Glucose Level 92 Calcium Level 9.5 Total Bilirubin 0.2 Direct Bilirubin 0.00 Indirect Bilirubin 0.2 Aspartate Amino Transf (AST/SGOT) 29 Alanine Aminotransferase (ALT/SGPT) 18 Alkaline Phosphatase 66 Total Protein 6.8 Albumin 3.6 Globulin 3.20 Albumin/Globulin Ratio 1.12 Medications Medication Current Medications Morphine Sulfate (morphine) 2 mg Q4H PRN IV SEVERE PAIN LEVEL 7-10 Last administered on 08/05/18 11:03; Admin Dose 2 MG; Start 07/27/18 at 07:00 Ondansetron HCl (Zofran Inj) 4 mg Q6H PRN IV NAUSEA AND/OR VOMITING Last administered on 07/28/18 13:55; Admin Dose 4 MG; Start 07/27/18 at 07:00 Metronidazole 100 ml @ 100 mls/hr Q6 IVPB Last administered on 08/05/18 12:31; Admin Dose 100 MLS/HR; Start 07/27/18 at 12:00 Acetaminophen/ Hydrocodone Bitart ([place] (5/325)) 1 tab Q6H PRN PO breakthrough pain Last administered on 08/05/18 09:32; Admin Dose 1 TAB; Start 07/27/18 at 16:00 Docusate Sodium (Colace) 100 mg BID PRN PO CONSTIPATION Last administered on 08/03/18 06:16; Admin Dose 100 MG; Start 07/27/18 at 16:00 Pantoprazole (Protonix Iv) 40 mg BID@06,18 IV Last administered on 08/05/18 06:06; Admin Dose 40 MG; Start 07/29/18 at 18:00 Chlordiazepoxide/ Clidinium (Librax) 1 cap AC MEALS AND BEDTIME PO Last administered on 08/03/18 09:43; Admin Dose 1 CAP; Start 07/31/18 at 11:30 Ibuprofen (Motrin) 400 mg Q6H PRN PO MILD PAIN(1-3) OR TEMP>38C Last administered on 08/05/18 09:33; Admin Dose 400 MG; Start 08/02/18 at 01:00 Polyethylene Glycol (Miralax) 17 gm DAILY PO Last administered on 08/05/18 08:36; Admin Dose 17 GM; Start 08/03/18 at 09:00 Lubiprostone (Amitiza) 24 mcg BID PO Last administered on 08/05/18 08:36; Admin Dose 24 MCG; Start 08/03/18 at 09:00 Ceftriaxone Sodium 50 ml @ 100 mls/hr Q24H IVPB Last administered on 08/04/18 21:35; Admin Dose 100 MLS/HR; Start 08/03/18 at 20:00 Olanzapine (Zyprexa) 5 mg QHS PO ; Start 08/04/18 at 21:00 DAKOTA MCCLAIN M.D. August 05, 2018 14:37
[2018-08-05 15:16] VITALS: BP 142/71; PULSE 101; RESP 18
--- NOTE | 2018-08-05 16:16 | CONS ---
Assessment/Plan Assessment/Plan Assessment/Plan (Daily) IMPRESSION: 1. Cholelithiasis with possible cholecystitis -MRCP negative -HIDA unremarkable 2. Abdominal pain. -improved, now lower abd 3. Anemia, acute -will monitor closely -neg FOB 4. Hypercalcemia. 5. Multiple cysts on liver noted on MRCP 6. Diarrhea-resolved Plan Continue librex and pain management Continue current care Patient declined a colonoscopy Consultation Date/Type/Reason Admit Date/Time Jul 27, 2018 at 04:55 Initial Consult Date 07/28/18 Requesting Provider: CLARI KRISHNA Date/Time of Note DATE: 08/05/18 TIME: 16:15 24 HR Interval Summary Free Text/Dictation Patient complains of migraine headache, morphine is not helping her She is demanding more pain medication Constitutional: improved Exam/Review of Systems Exam Vitals Vital Signs Date Temp Pulse Resp B/P (MAP) Pulse Ox O2 O2 Flow FiO2 Time Delivery Rate 08/05/18 98.3 101 18 142/71 97 Room Air 15:16 (94) Intake and Output 08/04/18 08/04/18 08/05/18 1515:00 23:00 07:00 IntakeIntake Total 300 ml 370 ml 100 ml OutputOutput Total 1 ml BalanceBalance 299 ml 370 ml 100 ml Constitutional: alert, oriented, well developed Psych: no complaints, nl mood/affect Head: normocephalic, atraumatic Eyes: nl conjunctiva, EOMI, nl lids, nl sclera, PERRL ENMT: nl external ears & nose, nl lips & teeth, nl nasal mucosa & septum Neck: supple, non-tender Respiratory: clear to auscultation, normal air movement Cardiovascular: regular rate and rhythm, nl pulses Gastrointestinal: soft, nl liver, spleen, non-tender Musculoskeletal: nl extremities to inspection, nl gait and stance Extremities: normal pulses Neurological: DIELECTRIC TESTER II-XII intact, nl mental status, nl speech, nl strength Skin: nl turgor; No rash or lesions Lymph: nl lymph nodes Results Result Diagram: 08/05/18 0537 08/05/18 0537 Results 24hrs Laboratory Tests Test 08/05/18 05:37 White Blood Count 5.1 Red Blood Count 3.39 L Hemoglobin 10.1 L Hematocrit 30.6 L Mean Corpuscular Volume 90.3 Mean Corpuscular Hemoglobin 29.8 Mean Corpuscular Hemoglobin Concent 33.0 Red Cell Distribution Width 15.4 H Platelet Count 399 Mean Platelet Volume 9.4 Immature Granulocytes % 0.200 Neutrophils % 57.8 Lymphocytes % 23.3 Monocytes % 15.7 H Eosinophils % 2.2 Basophils % 0.8 Nucleated Red Blood Cells % 0.0 Immature Granulocytes # 0.010 Neutrophils # 3.0 Lymphocytes # 1.2 Monocytes # 0.8 Eosinophils # 0.1 Basophils # 0.0 Nucleated Red Blood Cells # 0.0 Sodium Level 138 Potassium Level 4.4 Chloride Level 106 Carbon Dioxide Level 24 Anion Gap 8 Blood Urea Nitrogen 19 Creatinine 0.87 Est Glomerular Filtrat Rate mL/min > 60 Glucose Level 92 Calcium Level 9.5 Total Bilirubin 0.2 Direct Bilirubin 0.00 Indirect Bilirubin 0.2 Aspartate Amino Transf (AST/SGOT) 29 Alanine Aminotransferase (ALT/SGPT) 18 Alkaline Phosphatase 66 Total Protein 6.8 Albumin 3.6 Globulin 3.20 Albumin/Globulin Ratio 1.12 Medications Medication Current Medications Morphine Sulfate (morphine) 2 mg Q4H PRN IV SEVERE PAIN LEVEL 7-10 Last administered on 08/05/18 15:03; Admin Dose 2 MG; Start 07/27/18 at 07:00 Ondansetron HCl (Zofran Inj) 4 mg Q6H PRN IV NAUSEA AND/OR VOMITING Last administered on 07/28/18 13:55; Admin Dose 4 MG; Start 07/27/18 at 07:00 Metronidazole 100 ml @ 100 mls/hr Q6 IVPB Last administered on 08/05/18 12:31; Admin Dose 100 MLS/HR; Start 07/27/18 at 12:00 Acetaminophen/ Hydrocodone Bitart ([place] (5/325)) 1 tab Q6H PRN PO breakthrough pain Last administered on 08/05/18 09:32; Admin Dose 1 TAB; Start 07/27/18 at 16:00 Docusate Sodium (Colace) 100 mg BID PRN PO CONSTIPATION Last administered on 08/03/18 06:16; Admin Dose 100 MG; Start 07/27/18 at 16:00 Pantoprazole (Protonix Iv) 40 mg BID@,18 IV Last administered on 08/05/18 06:06; Admin Dose 40 MG; Start 07/29/18 at 18:00 Chlordiazepoxide/ Clidinium (Librax) 1 cap AC MEALS AND BEDTIME PO Last administered on 08/03/18 09:43; Admin Dose 1 CAP; Start 07/31/18 at 11:30 Ibuprofen (Motrin) 400 mg Q6H PRN PO MILD PAIN(1-3) OR TEMP>38C Last administered on 08/05/18 09:33; Admin Dose 400 MG; Start 08/02/18 at 01:00 Polyethylene Glycol (Miralax) 17 gm DAILY PO Last administered on 08/05/18 08:36; Admin Dose 17 GM; Start 08/03/18 at 09:00 Lubiprostone (Amitiza) 24 mcg BID PO Last administered on 08/05/18 08:36; Admin Dose 24 MCG; Start 08/03/18 at 09:00 Ceftriaxone Sodium 50 ml @ 100 mls/hr Q24H IVPB Last administered on 08/04/18at 21:35; Admin Dose 100 MLS/HR; Start 08/03/18 at 20:00 Olanzapine (Zyprexa) 5 mg QHS PO ; Start 08/04/18 at 21:00 BETH ABBASI MD August 05, 2018 16:16
[2018-08-05 19:38] VITALS: BP 120/66; PULSE 84; RESP 17
[2018-08-05] MEDS: CEFTRIAXONE 1 GM/50 ML (PMX) 50 ML IVPB SCH (20:49)
[2018-08-05] MEDS: OLANZAPINE 5 MG TAB PO SCH (20:49)
[2018-08-06 02:02] VITALS: BP 125/65; PULSE 97; RESP 18
[2018-08-06] MEDS: morphine 2 MG INJ IV PRN ×3 (04:01→12:47)
[2018-08-06] MEDS: PANTOPRAZOLE 40 MG INJ IV SCH ×2 (05:36→17:33)
[2018-08-06] MEDS: metroNIDAZOLE 500 MG/NS (PMX) 100 ML IVPB SCH ×3 (05:36→17:32)
[2018-08-06 08:00] VITALS: BP 112/61; PULSE 76; RESP 18
[2018-08-06] MEDS: CHLORDIAZEPOXIDE/CLIDINIUM CAP PO SCH ×4 (08:20→20:52)
[2018-08-06] MEDS: POLYETHYLENE GLYCOL 17 GM PACKET PO SCH (08:20)
[2018-08-06] MEDS: LUBIPROSTONE 24 MCG CAP PO SCH ×2 (08:20→20:53)
--- NOTE | 2018-08-06 09:37 | PN ---
Date/Time of Note Date/Time of Note DATE: 08/06/18 TIME: 09:37 Assessment/Plan VTE Prophylaxis Risk score (from Nsg)>0 risk: 5 SCD applied (from Nsg): Yes Lines/Catheters IV Catheter Type (from Nrsg): Peripheral IV Urinary Cath still in place: No Assessment/Plan Assessment/Plan - cholecystitis - id on case - HIDA scan - cholelithiasis -GI follows - per surgery consult - Acute Headache- none at present - ok with pain med - CT brain showed 1. Mild generalized cerebral volume loss. 2. No evidence of intracranial masses hemorrhages or midline shift. - Right breast pain/swelling- CEA 2.8 wnl -08/04/2018 US-No sonographic evidence of malignancy. No interval change. No abscess, fluid collection, or hematoma. - mammogram recommended ; prescription in patient chart - 07/26/2018- right breast US -1. No mass or fluid collection identified. - 2. The ultrasound does not take a place of a conventional digital minimal mammogram. The patient is strongly recommended to obtain digital mammography for more thorough evaluation of the right breast lump. Neoplasm is not excluded on the basis of ultrasound. - Anemia- Hgb stable- 10.1 Result Diagram: 08/05/1837 08/05/1837 Exam/Review of Systems Exam Vitals Vital Signs Date Temp Pulse Resp B/P (MAP) Pulse Ox O2 O2 Flow FiO2 Time Delivery Rate 08/06/18 98.8 76 18 112/61 96 08:00 (78) 08/05/18 Room Air 15:16 Intake and Output 08/05/18 08/05/18 08/06/18 1515:00 23:00 07:00 IntakeIntake Total 980 ml 390 ml 200 ml OutputOutput Total 600 ml 400 ml BalanceBalance 380 ml -10 ml 200 ml Medications Medication Current Medications Morphine Sulfate (morphine) 2 mg Q4H PRN IV SEVERE PAIN LEVEL 7-10 Last administered on 08/06/18at 08:14; Admin Dose 2 MG; Start 07/27/18 at 07:00 Ondansetron HCl (Zofran Inj) 4 mg Q6H PRN IV NAUSEA AND/OR VOMITING Last administered on 07/28/18at 13:55; Admin Dose 4 MG; Start 07/27/18 at 07:00 Metronidazole 100 ml @ 100 mls/hr Q6 IVPB Last administered on 08/06/18 05:36; Admin Dose 100 MLS/HR; Start 07/27/18 at 12:00 Acetaminophen/ Hydrocodone Bitart ([place] (5/325)) 1 tab Q6H PRN PO breakthrough pain Last administered on 08/05/18 17:15; Admin Dose 1 TAB; Start 07/27/18 at 16:00 Docusate Sodium (Colace) 100 mg BID PRN PO CONSTIPATION Last administered on 08/03/18 06:16; Admin Dose 100 MG; Start 07/27/18 at 16:00 Pantoprazole (Protonix Iv) 40 mg BID@06,18 IV Last administered on 08/06/18 05:36; Admin Dose 40 MG; Start 07/29/18 at 18:00 Chlordiazepoxide/ Clidinium (Librax) 1 cap AC MEALS AND BEDTIME PO Last administered on 08/06/18 08:20; Admin Dose 1 CAP; Start 07/31/18 at 11:30 Ibuprofen (Motrin) 400 mg Q6H PRN PO MILD PAIN(1-3) OR TEMP>38C Last administered on 08/05/18 09:33; Admin Dose 400 MG; Start 08/02/18 at 01:00 Polyethylene Glycol (Miralax) 17 gm DAILY PO Last administered on 08/06/18 08:20; Admin Dose 17 GM; Start 08/03/18 at 09:00 Lubiprostone (Amitiza) 24 mcg BID PO Last administered on 08/06/18 08:20; Admin Dose 24 MCG; Start 08/03/18 at 09:00 Ceftriaxone Sodium 50 ml @ 100 mls/hr Q24H IVPB Last administered on 08/05/18 20:49; Admin Dose 100 MLS/HR; Start 08/03/18 at 20:00 Olanzapine (Zyprexa) 5 mg QHS PO ; Start 08/04/18 at 21:00 CLARI KRISHNA August 06, 2018 09:37
[2018-08-06] MEDS: HYDROCODONE/APAP (5/325) TAB PO PRN (10:35)
--- NOTE | 2018-08-06 11:18 | PN ---
Date/Time of Note Date/Time of Note DATE: 08/06/18 TIME: 11:16 Assessment/Plan Lines/Catheters IV Catheter Type (from [facility]): Peripheral IV Cruz in Place (from [facility]): No Assessment/Plan Chief Complaint/Hosp Course 1. Abdominal pain ? etiology. Non surgical at this time (doubt gallbladder): improving -GI f/u (antispasmodics, ..)> ?Colonoscopy if pain not improving -PPI -Pain management as needed 2. Cholelithiasis: HIDA negative; MRCP noted without choledocholithiasis or cholecystitis -No emergent surgical intervention necessary at this time > may consider c holecystectomy at some point if not improving 3. Hypochromic anemia: -Monitor and transfuse as needed 4. Breast pain: us noted -discussed biopsy w pt, currently refusing 5. Migraine headaches: -Medical management Thank you. Patient seen and examined in collaboration with Dr. Rosalino Portillo. Subjective 24 Hr Interval Summary Abdominal pain much improved. Now complains of migraine headaches. No fevers, chills, sob, congested cough, cp, palpitations, penaloza, dizziness, nausea, vomiting, diarrhea, dysuria. Exam/Review of Systems Vital Signs Vitals Vital Signs Date Temp Pulse Resp B/P (MAP) Pulse Ox O2 O2 Flow FiO2 Time Delivery Rate 08/06/18 98.8 76 18 112/61 96 08:00 (78) 08/05/18 Room Air 15:16 Intake and Output 08/05/18 08/05/18 08/06/18 1515:00 23:00 07:00 IntakeIntake Total 980 ml 390 ml 200 ml OutputOutput Total 600 ml 400 ml BalanceBalance 380 ml -10 ml 200 ml Exam Free Text/Dictation Constitutional: alert, oriented Psych: anxiety Head: normocephalic, atraumatic Eyes: nl conjunctiva, EOMI, nl lids, nl sclera ENMT: nl external ears & nose, nl lips & teeth, mucosa pink and moist Neck: supple, non-tender; No jvd Chest: right breast mobile mass noted; no nipple drainage/tenderness Respiratory: normal air movement; No congested cough Cardiovascular: regular rate and rhythm, nl pulses; No edema Gastrointestinal: soft, min tender in lower quadrants without rebound/guarding/rigidity; ND Genitourinary - Female: nl external genitalia Musculoskeletal: nl extremities to inspection; No joint tenderness, No muscle weakness Extremities: normal pulses; No edema Neurological: nl mental status, nl speech, nl strength Skin: nl turgor; No rash or lesions Lymph: nl lymph nodes Results Result Diagram: 08/05/18 0537 08/05/18 0537 ROC MANNING NP August 06, 2018 11:18
--- NOTE | 2018-08-06 12:10 | CONS ---
Assessment/Plan Assessment/Plan Assessment/Plan (Daily) IMPRESSION: 1. Cholelithiasis with possible cholecystitis -MRCP negative -HIDA unremarkable 2. Abdominal pain. -improved, now lower abd 3. Anemia, acute -will monitor closely -neg FOB 4. Hypercalcemia. 5. Multiple cysts on liver noted on MRCP 6. Diarrhea-resolved 7. Severe migraine headache Plan Continue librex and pain management Continue current care Patient declined a colonoscopy Pain management Consultation Date/Type/Reason Admit Date/Time Jul 27, 2018 at 04:55 Initial Consult Date 07/28/18 Requesting Provider: CLARI KRISHNA Date/Time of Note DATE: 08/06/18 TIME: 12:09 24 HR Interval Summary Free Text/Dictation No abdominal pain no nausea no vomiting. Her only complaint is migraine headache and the narcotic is not helping her Exam/Review of Systems Exam Vitals Vital Signs Date Temp Pulse Resp B/P (MAP) Pulse Ox O2 O2 Flow FiO2 Time Delivery Rate 08/06/18 98.8 76 18 112/61 96 08:00 (78) 08/05/18 Room Air 15:16 Intake and Output 08/05/18 08/05/18 08/06/18 1515:00 23:00 07:00 IntakeIntake Total 980 ml 390 ml 200 ml OutputOutput Total 600 ml 400 ml BalanceBalance 380 ml -10 ml 200 ml Constitutional: alert, oriented, well developed Psych: no complaints, nl mood/affect Head: normocephalic, atraumatic Eyes: nl conjunctiva, EOMI, nl lids, nl sclera, PERRL ENMT: nl external ears & nose, nl lips & teeth, nl nasal mucosa & septum Neck: supple, non-tender Respiratory: clear to auscultation, normal air movement Cardiovascular: regular rate and rhythm, nl pulses Gastrointestinal: soft, nl liver, spleen, non-tender Musculoskeletal: nl extremities to inspection, nl gait and stance Extremities: normal pulses Neurological: TANNING WHEEL FILLER II-XII intact, nl mental status, nl speech, nl strength Skin: nl turgor; No rash or lesions Lymph: nl lymph nodes Results Result Diagram: 08/05/18 0537 08/05/18 0537 Medications Medication Current Medications Morphine Sulfate (morphine) 2 mg Q4H PRN IV SEVERE PAIN LEVEL 7-10 Last administered on 5/2/19at 08:14; Admin Dose 2 MG; Start 07/27/18 at 07:00 Ondansetron HCl (Zofran Inj) 4 mg Q6H PRN IV NAUSEA AND/OR VOMITING Last administered on 07/28/18 13:55; Admin Dose 4 MG; Start 07/27/18 at 07:00 Metronidazole 100 ml @ 100 mls/hr Q6 IVPB Last administered on 08/06/18 05:36; Admin Dose 100 MLS/HR; Start 07/27/18 at 12:00 Acetaminophen/ Hydrocodone Bitart ([place] (5/325)) 1 tab Q6H PRN PO breakthrough pain Last administered on 08/06/18 10:35; Admin Dose 1 TAB; Start 07/27/18 at 16:00 Docusate Sodium (Colace) 100 mg BID PRN PO CONSTIPATION Last administered on 08/03/18 06:16; Admin Dose 100 MG; Start 07/27/18 at 16:00 Pantoprazole (Protonix Iv) 40 mg BID@06,18 IV Last administered on 08/06/18 05:36; Admin Dose 40 MG; Start 07/29/18 at 18:00 Chlordiazepoxide/ Clidinium (Librax) 1 cap AC MEALS AND BEDTIME PO Last ad ministered on 08/06/18 08:20; Admin Dose 1 CAP; Start 07/31/18 at 11:30 Ibuprofen (Motrin) 400 mg Q6H PRN PO MILD PAIN(1-3) OR TEMP>38C Last administered on 08/05/18 09:33; Admin Dose 400 MG; Start 08/02/18 at 01:00 Polyethylene Glycol (Miralax) 17 gm DAILY PO Last administered on 08/06/18 08:20; Admin Dose 17 GM; Start 08/03/18 at 09:00 Lubiprostone (Amitiza) 24 mcg BID PO Last administered on 08/06/18 08:20; Admin Dose 24 MCG; Start 08/03/18 at 09:00 Ceftriaxone Sodium 50 ml @ 100 mls/hr Q24H IVPB Last administered on 08/05/18 20:49; Admin Dose 100 MLS/HR; Start 08/03/18 at 20:00 Olanzapine (Zyprexa) 5 mg QHS PO ; Start 08/04/18 at 21:00 BETH ABBASI MD August 06, 2018 12:10
[2018-08-06] MEDS: IBUPROFEN 400 MG TAB PO PRN ×2 (12:46→20:53)
[2018-08-06 14:00] VITALS: BP 128/72; PULSE 64; RESP 20
--- NOTE | 2018-08-06 14:39 | CONS ---
[facility] Name[facility] Zuleyma Greer Unit Number: [id number] Date of : 1950 Patient Status: Admitted Inpatient Attending Doctor: Javan Recinos MD Edit: DAKOTA DIAZ M.D. on 08/06/18 @ 20:29 Emily: I discussed the management with TEACHER [employer]AIRED Nehemiah and agree Assessment/Plan Assessment/Plan Hospital Course (Demo Recall) assessment/impression - R breast mass/swelling, R axillary lymphadenopathy - h/o R mastitis, Pt took Bactrim x 7 days in 07/2018 - ?questionable R breast mass; TORRI on 08/04/2018 did not identify mass/fluid collection/abscess - cholelithiasis without definite e/o acute cholecystitis, choledocholithiasis and cholangitis, clinically improved - migraine - COPD - lung CA - CAD recommendations - continue ceftriaxone (08/03/2018-) and metronidazole (07/27/2018-) - when Pt is ready to go home, we recommend PO cephalexin - we recommend out-patient mammogram (it is not available at [facility]) management d/w patient, ANIL Ramirez, and with Dr. Diaz. Consultation Date/Type/Reason Admit Date/Time Jul 27, 2018 at 04:55 Initial Consult Date 08/03/18 Type of Consult Infectious Disease Requesting Provider: CLARI KRISHNA Date/Time of Note DATE: 08/06/18 TIME: 14:37 24 HR Interval Summary Free Text/Dictation C/o migraine MARINELLI rating 10/10 and nausea but no vomiting. States morphine and [place] are ineffective. "This pain is just draining all my energy. I can't eat. I can't do anything. Nobody seems to be helping me." States that a male physician saw her recently and promised to order an anti- migraine medication but no order was placed yet. Denies abdominal pain or breast pain. Reports mild SOB r/t migraine. No dysuria or diarrhea. Exam/Review of Systems Exam Vitals Vital Signs Date Temp Pulse Resp B/P (MAP) Pulse Ox O2 O2 Flow FiO2 Time Delivery Rate 08/06/18 98.8 76 18 112/61 96 08:00 (78) 08/05/18 Room Air 15:16 Intake and Output 08/05/18 08/05/18 08/06/18 1515:00 23:00 07:00 IntakeIntake Total 980 ml 390 ml 200 ml OutputOutput Total 600 ml 400 ml BalanceBalance 380 ml -10 ml 200 ml Exam Limited exam as pt is in a position and crying and asking for pain medication Constitutional: alert, well developed, distress, frail Head: normocephalic, atraumatic Eyes: nl conjunctiva, nl lids, nl sclera ENMT: nl external ears & nose, nl nasal mucosa & septum Neck: supple Gastrointestinal: soft, non-tender Genitourinary - Female: other (No Cruz) Musculoskeletal: nl extremities to inspection Skin: nl turgor Results Result Diagram: 08/05/1837 08/05/1837 Medications Medication Current Medications Morphine Sulfate (morphine) 2 mg Q4H PRN IV SEVERE PAIN LEVEL 7-10 Last administered on 08/06/18 12:47; Admin Dose 2 MG; Start 07/27/18 at 07:00 Ondansetron HCl (Zofran Inj) 4 mg Q6H PRN IV NAUSEA AND/OR VOMITING Last administered on 07/28/18at 13:55; Admin Dose 4 MG; Start 07/27/18 at 07:00 Metronidazole 100 ml @ 100 mls/hr Q6 IVPB Last administered on 08/06/18 12:47; Admin Dose 100 MLS/HR; Start 07/27/18 at 12:00 Acetaminophen/ Hydrocodone Bitart ([place] (5/325)) 1 tab Q6H PRN PO breakthrough pain Last administered on 08/06/18at 10:35; Admin Dose 1 TAB; Start 07/27/18 at 16:00 Docusate Sodium (Colace) 100 mg BID PRN PO CONSTIPATION Last administered on 08/03/18at 06:16; Admin Dose 100 MG; Start 07/27/18 at 16:00 Pantoprazole (Protonix Iv) 40 mg BID@06,18 IV Last administered on 08/06/18 05 :36; Admin Dose 40 MG; Start 07/29/18 at 18:00 Chlordiazepoxide/ Clidinium (Librax) 1 cap AC MEALS AND BEDTIME PO Last administered on 08/06/18 12:46; Admin Dose 1 CAP; Start 07/31/18 at 11:30 Ibuprofen (Motrin) 400 mg Q6H PRN PO MILD PAIN(1-3) OR TEMP>38C Last administered on 08/06/18 12:46; Admin Dose 400 MG; Start 08/02/18 at 01:00 Polyethylene Glycol (Miralax) 17 gm DAILY PO Last administered on 08/06/18 08:20; Admin Dose 17 GM; Start 08/03/18 at 09:00 Lubiprostone (Amitiza) 24 mcg BID PO Last administered on 08/06/18 08:20; Admin Dose 24 MCG; Start 08/03/18 at 09:00 Ceftriaxone Sodium 50 ml @ 100 mls/hr Q24H IVPB Last administered on 08/05/18 20:49; Admin Dose 100 MLS/HR; Start 08/03/18 at 20:00 Olanzapine (Zyprexa) 5 mg QHS PO ; Start 08/04/18 at 21:00 KOMAL FONSECA NP August 06, 2018 14:39
[2018-08-06] MEDS ORDERED: ASA/ACETAMINOPHEN/CAFF TAB PO ONE (17:00)
[2018-08-06 20:00] VITALS: BP 130/81; PULSE 77; RESP 18
[2018-08-06] MEDS: CEFTRIAXONE 1 GM/50 ML (PMX) 50 ML IVPB SCH (20:53)
[2018-08-06] MEDS: OLANZAPINE 5 MG TAB PO SCH (20:55)
[2018-08-06] MEDS: ASA/ACETAMINOPHEN/CAFF TAB PO PRN (23:02)
[2018-08-07] MEDS: metroNIDAZOLE 500 MG/NS (PMX) 100 ML IVPB SCH ×4 (00:31→17:26)
[2018-08-07 02:00] VITALS: BP 119/71; PULSE 82; RESP 19
[2018-08-07] MEDS: IBUPROFEN 400 MG TAB PO PRN ×3 (03:59→20:32)
[2018-08-07] MEDS: PANTOPRAZOLE 40 MG INJ IV SCH ×2 (05:21→17:26)
[2018-08-07] MEDS: ASA/ACETAMINOPHEN/CAFF TAB PO PRN ×3 (05:21→17:48)
--- NOTE | 2018-08-07 05:39 | PN ---
Date/Time of Note Date/Time of Note DATE: 08/07/18 TIME: 05:38 Assessment/Plan VTE Prophylaxis Risk score (from Nsg)>0 risk: 7 SCD applied (from Nsg): Yes Lines/Catheters IV Catheter Type (from Nrsg): Saline Lock Urinary Cath still in place: No Assessment/Plan Assessment/Plan - cholecystitis - id on case - HIDA scan - cholelithiasis -GI follows - per surgery consult - Acute Headache- none at present - better with Excedrin - CT brain showed 1. Mild generalized cerebral volume loss. 2. No evidence of intracranial masses hemorrhages or midline shift. - Right breast pain/swelling- CEA 2.8 wnl -08/04/2018 US -No sonographic evidence of malignancy. No interval change. No abscess, fluid collection, or hematoma. - mammogram recommended ; prescription in patient chart - 07/26/2018- right breast US -1. No mass or fluid collection identified. - 2. The ultrasound does not take a place of a conventional digital minimal mammogram. The patient is strongly recommended to obtain digital mammography for more thorough evaluation of the right breast lump. Neoplasm is not excluded on the basis of ultrasound. - Anemia- Hgb stable- 10.1 Result Diagram: 08/05/1837 08/05/1837 Exam/Review of Systems Exam Vitals Vital Signs Date Temp Pulse Resp B/P (MAP) Pulse Ox O2 O2 Flow FiO2 Time Delivery Rate 08/07/18 97.5 82 19 119/71 97 02:00 (87) 08/06/18 Room Air 08:14 Intake and Output 08/06/18 08/06/18 08/07/18 1414:59 22:59 06:59 IntakeIntake Total 550 ml 550 ml 100 ml BalanceBalance 550 ml 550 ml 100 ml Medications Medication Current Medications Morphine Sulfate (morphine) 2 mg Q4H PRN IV SEVERE PAIN LEVEL 7-10 Last admi nistered on 08/06/18at 12:47; Admin Dose 2 MG; Start 07/27/18 at 07:00 Ondansetron HCl (Zofran Inj) 4 mg Q6H PRN IV NAUSEA AND/OR VOMITING Last administered on 07/28/18at 13:55; Admin Dose 4 MG; Start 07/27/18 at 07:00 Metronidazole 100 ml @ 100 mls/hr Q6 IVPB Last administered on 08/07/18 05:25; Admin Dose 100 MLS/HR; Start 07/27/18 at 12:00 Acetaminophen/ Hydrocodone Bitart ([place] (5/325)) 1 tab Q6H PRN PO breakthrough pain Last administered on 08/06/18 10:35; Admin Dose 1 TAB; Start 07/27/18 at 16:00 Docusate Sodium (Colace) 100 mg BID PRN PO CONSTIPATION Last administered on 08/03/18 06:16; Admin Dose 100 MG; Start 07/27/18 at 16:00 Pantoprazole (Protonix Iv) 40 mg BID@06,18 IV Last administered on 08/07/18 05:21; Admin Dose 40 MG; Start 07/29/18 at 18:00 Chlordiazepoxide/ Clidinium (Librax) 1 cap AC MEALS AND BEDTIME PO Last administered on 08/06/18 20:52; Admin Dose 1 CAP; Start 07/31/18 at 11:30 Ibuprofen (Motrin) 400 mg Q6H PRN PO MILD PAIN(1-3) OR TEMP>38C Last administ ered on 08/07/18 03:59; Admin Dose 400 MG; Start 08/02/18 at 01:00 Polyethylene Glycol (Miralax) 17 gm DAILY PO Last administered on 08/06/18 08:20; Admin Dose 17 GM; Start 08/03/18 at 09:00 Lubiprostone (Amitiza) 24 mcg BID PO Last administered on 08/06/18 20:53; Admin Dose 24 MCG; Start 08/03/18 at 09:00 Ceftriaxone Sodium 50 ml @ 100 mls/hr Q24H IVPB Last administered on 08/06/18 20:53; Admin Dose 100 MLS/HR; Start 08/03/18 at 20:00 Olanzapine (Zyprexa) 5 mg QHS PO ; Start 08/04/18 at 21:00 Acetaminophen/ Aspirin/Caffeine (Excedrin) 1 tab Q6H PRN PO MIGRAINE Last administered on 08/07/18 05:21; Admin Dose 1 TAB; Start 08/06/18 at 23:00 CLARI KRISHNA August 07, 2018 05:39
[2018-08-07 08:00] VITALS: BP 120/68; PULSE 78; RESP 18
[2018-08-07] MEDS: CHLORDIAZEPOXIDE/CLIDINIUM CAP PO SCH ×4 (08:27→20:32)
[2018-08-07] MEDS: POLYETHYLENE GLYCOL 17 GM PACKET PO SCH (08:27)
[2018-08-07] MEDS: LUBIPROSTONE 24 MCG CAP PO SCH (08:27)
[2018-08-07] MEDS ORDERED: POLYETHYLENE GLYCOL 17 GM PACKET PO PRN (12:30)
--- NOTE | 2018-08-07 12:37 | PN ---
Date/Time of Note Date/Time of Note DATE: 08/07/18 TIME: 12:30 Assessment/Plan Lines/Catheters IV Catheter Type (from Nrs): Saline Lock Cruz in Place (from Nrs): No Assessment/Plan Chief Complaint/Hosp Course 1. Abdominal pain ? etiology. Non surgical at this time (doubt gallbladder): resolved -GI f/u (antispasmodics, ..)> refusing colonoscopy -PPI -Pain management as needed 2. Cholelithiasis: HIDA negative; MRCP noted without choledocholithiasis or cholecystitis -No emergent surgical intervention necessary at this time > may consider cholecystectomy at some point if not improving -ok for dc from surgical standpoint 3. Hypochromic anemia: -Monitor and transfuse as needed 4. Breast pain: us noted -discussed biopsy w pt, currently refusing 5. Migraine headaches: -Medical management -neuro consult pending Thank you. Patient seen and examined in collaboration with Dr. Rosalino Portillo. Subjective 24 Hr Interval Summary Continues to have intermittent migraines. No fevers, chills, sob, congested cough, cp, palpitations, penaloza, dizziness, n/v/d/dysuria. Abdominal pain improved. Exam/Review of Systems Vital Signs Vitals Vital Signs Date Temp Pulse Resp B/P (MAP) Pulse Ox O2 O2 Flow FiO2 Time Delivery Rate 08/07/18 98.6 78 18 120/68 96 08:00 (85) 08/06/18 Room Air 08:14 Intake and Output 08/06/18 08/06/18 08/07/18 1515:00 23:00 07:00 IntakeIntake Total 550 ml 550 ml 200 ml BalanceBalance 550 ml 550 ml 200 ml Exam Free Text/Dictation Constitutional: alert, oriented Psych: anxiety Head: normocephalic, atraumatic Eyes: nl conjunctiva, EOMI, nl lids, nl sclera ENMT: nl external ears & nose, nl lips & teeth, mucosa pink and moist Neck: supple, non-tender; No jvd Chest: right breast mobile mass noted; no nipple drainage/tenderness Respiratory: normal air movement; No congested cough Cardiovascular: regular rate and rhythm, nl pulses; No edema Gastrointestinal: soft, min tender in lower quadrants without rebound/guarding/rigidity; ND Genitourinary - Female: nl external genitalia Musculoskeletal: nl extremities to inspection; No joint tenderness, No muscle weakness Extremities: normal pulses; No edema Neurological: nl mental status, nl speech, nl strength Skin: nl turgor; No rash or lesions Lymph: nl lymph nodes Results Result Diagram: 08/07/18 0604 08/07/18 0604 ROC MANNING NP August 07, 2018 12:37
--- NOTE | 2018-08-07 12:50 | CONS ---
Assessment/Plan Assessment/Plan Hospital Course 68 yo F with hx of lung CA and multiple other comorbidities who presents for evaluation of abdominal pain. On 08/06, she was noted to have a severe intractable headache... for which neurology is consulted. The clinical picture is consistent with a nonspecific headache in the context of pain medication overuse and systemic illness. A focal TITLE I DIRECTOR process is unlikely. CTH is reassuringly without acute intracranial pathology. P: Ok to defer MRI brain for now Agree with NSAIDs PRN pain Cont medical management per primary Will follow clinically, to recommend neurologic studies, as necessary Consultation Date/Type/Reason Admit Date/Time Jul 27, 2018 at 04:55 Type of Consult Neurology Reason for Consultation headache Requesting Provider: CLARI KRISHNA Date/Time of Note DATE: 08/07/18 TIME: 12:50 Hx of Present Illness 68 yo F with hx of lung CA and other comorbidities who presented to the ED with c/o abdominal pain. Was noted to have cholecystitis, requiring around the clock morphine and [place]. Per pt report, on , she stated that she started to have a severe headache (with nausea), that was constant, was both sharp and throbbing at times, and localized only to the front of her head. She stated that aggravating factors included bright lights. The pt reported relief with use of excedrin. It is elsewhere noted: Hx of Present Illness Zuleyma Greer is 68-year-old woman with past medical history of lung cancer, COPD, cardiomyopathy who presents to the ER with complaints of abdominal pain. Abdominal pain is described as diffuse, most like "labor pains ". Associated symptoms include diarrhea for the past 3 days as well as nausea without vomiting. Alleviating factors include food. She denies fevers, chills, congested cough, chest pain, palpitations, dysuria, hematemesis, hematochezia, melena. Laboratory findings include normal WBC as well as normal LFTs. CT abdomen and pelvis shows cholelithiasis with intrahepatic biliary ductal dilatation and calcification in the jessy hepatis-findings were unchanged from 2018. HIDA scan also noted to be negative. General surgery was asked to evaluate. 12 point review of systems was performed is negative except as stated in HPI. Exam/Review of Systems Exam Vitals Vital Signs Date Temp Pulse Resp B/P (MAP) Pulse Ox O2 O2 Flow FiO2 Time Delivery Rate 08/07/18 98.6 78 18 120/68 96 08:00 (85) 08/06/18 Room Air 08:14 Intake and Output 08/06/18 08/06/18 08/07/18 1515:00 23:00 07:00 IntakeIntake Total 550 ml 550 ml 200 ml BalanceBalance 550 ml 550 ml 200 ml Exam PE: Gen Appearance: No Apparent Distress HEENT: Normocephalic Cardiovascular: Regular rate Lungs: Clear bilaterally Abdomen: Soft Extremities: Dry NE: The patient was alert and oriented. Language was normal. Fund of knowledge was normal. Pupils were equal and reactive to light. There was no afferent pupillary defect. Visual gibbons were normal. Funduscopic examination was limited. Extra-ocular movements were full. Ptosis was absent. There was no nystagmus. Facial sensation was normal. Face was symmetric with normal strength. Hearing was intact. Palate movements were normal. Neck strength was normal. There was normal tongue bulk and speed of movement. Tone was normal. Muscle bulk was normal. I did not see fasciculations. Arms and legs were strong. Vibration sensation was normal. Temperature and pinprick sensation was normal. Rapid alternating movements were normal. There was no dysmetria. There was no intention tremor. Gait was deferred due to bedrest. Arm and leg reflexes were 2+ and symmetric. Castanon's sign was absent. Plantar responses were flexor. Results Result Diagram: 08/07/18 0604 08/07/18 0604 Results 24hrs Laboratory Tests Test 08/07/18 06:04 White Blood Count 4.0 #L Red Blood Count 3.44 L Hemoglobin 10.2 L Hematocrit 31.4 L Mean Corpuscular Volume 91.3 Mean Corpuscular Hemoglobin 29.7 Mean Corpuscular Hemoglobin Concent 32.5 Red Cell Distribution Width 15.7 H Platelet Count 368 Mean Platelet Volume 9.6 Immature Granulocytes % 0.700 H Neutrophils % 54.7 Lymphocytes % 25.5 Monocytes % 14.6 H Eosinophils % 4.0 Basophils % 0.5 Nucleated Red Blood Cells % 0.0 Immature Granulocytes # 0.030 Neutrophils # 2.2 Lymphocytes # 1.0 Monocytes # 0.6 Eosinophils # 0.2 Basophils # 0.0 Nucleated Red Blood Cells # 0.0 Sodium Level 138 Potassium Level 4.0 Chloride Level 106 Carbon Dioxide Level 26 Anion Gap 6 Blood Urea Nitrogen 15 Creatinine 0.94 Est Glomerular Filtrat Rate mL/min > 60 Glucose Level 116 Calcium Level 9.4 Medications Medication Current Medications Morphine Sulfate (morphine) 2 mg Q4H PRN IV SEVERE PAIN LEVEL 7-10 Last administered on 08/06/18 12:47; Admin Dose 2 MG; Start 07/27/18 at 07:00 Ondansetron HCl (Zofran Inj) 4 mg Q6H PRN IV NAUSEA AND/OR VOMITING Last administered on 07/28/18 13:55; Admin Dose 4 MG; Start 07/27/18 at 07:00 Metronidazole 100 ml @ 100 mls/hr Q6 IVPB Last administered on 08/07/18 11:56; Admin Dose 100 MLS/HR; Start 07/27/18 at 12:00 Acetaminophen/ Hydrocodone Bitart ([place] (5/325)) 1 tab Q6H PRN PO breakthrough pain Last administered on 08/06/18 10:35; Admin Dose 1 TAB; Start 07/27/18 at 16:00 Docusate Sodium (Colace) 100 mg BID PRN PO CONSTIPATION Last administered on 08/03/18 06:16; Admin Dose 100 MG; Start 07/27/18 at 16:00 Pantoprazole (Protonix Iv) 40 mg BID@06,18 IV Last administered on 08/07/18 05:21; Admin Dose 40 MG; Start 07/29/18 at 18:00 Chlordiazepoxide/ Clidinium (Librax) 1 cap AC MEALS AND BEDTIME PO Last admi nistered on 08/07/18 11:56; Admin Dose 1 CAP; Start 07/31/18 at 11:30 Ibuprofen (Motrin) 400 mg Q6H PRN PO MILD PAIN(1-3) OR TEMP>38C Last administered on 08/07/18 03:59; Admin Dose 400 MG; Start 08/02/18 at 01:00 Ceftriaxone Sodium 50 ml @ 100 mls/hr Q24H IVPB Last administered on 08/06/18 20:53; Admin Dose 100 MLS/HR; Start 08/03/18 at 20:00 Olanzapine (Zyprexa) 5 mg QHS PO ; Start 08/04/18 at 21:00 Acetaminophen/ Aspirin/Caffeine (Excedrin) 1 tab Q6H PRN PO MIGRAINE Last administered on 08/07/18at 11:38; Admin Dose 1 TAB; Start 08/06/18 at 23:00 Polyethylene Glycol (Miralax) 17 gm DAILY PRN PO CONSTIPATION; Start 08/07/18 at 12:30 Past Medical History reviewed Medical History: congestive heart failure, other (COPD, lung CA) Home Meds Active Scripts Ibuprofen* (Ibuprofen*) 600 Mg Tablet, 600 MG PO Q6H PRN for PAIN, #30 TAB Prov:ONIEL PRIETO 07/18/18 Sulfamethoxazole/Trimethoprim* (Bactrim Ds* Tablet) 1 Each Tablet, 1 TAB PO BID, #14 TAB Prov:ONIEL PRIETO 07/18/18 Guaifenesin-Codeine Phosphate* (Guaifenesin* AC Cough Syrup) 473 Ml Liquid, 5 ML PO BID PRN for COUGH, #60 ML Prov:ALEJANDRA DICKSON MD 03/11/18 Prednisone* (Prednisone*) 20 Mg Tab, 60 MG PO DAILY for 5 Days, TAB Prov:ALEJANDRA DICKSON MD 03/11/18 Amoxicillin* (Amoxicillin*) 500 Mg Cap, 500 MG PO TID for 7 Days, CAP Prov:PASILABAN,SUJITAR F 07/19/17 Hydrocodone/Acetaminophen ([place] 5-325 Tablet) 1 Each Tablet, 1 TAB PO Q6H PRN for SEVERE PAIN LEVEL 7-10, #20 TAB Prov:YODIT CARDOSO NP 06/09/17 Ibuprofen* (Motrin*) 400 Mg Tab, 400 MG PO Q6H PRN for PAIN AND OR ELEVATED TEMP, #30 TAB Prov:YODIT CARDOSO NP 06/09/17 Ondansetron (Ondansetron Odt) 4 Mg Tab.rapdis, 4 MG PO Q6H PRN for NAUSEA AND/OR VOMITING, #10 TAB Prov:CHAITANYA EDGAR MD 05/16/17 Hydrocodone/Acetaminophen ([place] 10-325 Tablet) 1 Each Tablet, 1 TAB PO Q6H PRN for PAIN, #7 TAB Prov:CHAITANYA EGDAR MD 05/16/17 Reported Medications Salmeterol Xinafoate (Serevent Diskus) 50 Mcg Blst.w.dev, 5 MCG INH BID 10/24/16 Tiotropium [place]* (Spiriva*) 18 Mcg Cap.w.dev, 1 CAP INHALATION DAILY, #30 CAP 10/24/16 Nortriptyline Hcl* (Nortriptyline Hcl*) 25 Mg Capsule, 25 MG PO HS, CAP 10/24/16 Lorazepam* (Lorazepam*) 1 Mg Tablet, 1 MG PO QAM PRN for ANXIETY, #30 TAB 10/24/16 Trifluoperazine Hcl (Trifluoperazine Hcl) 10 Mg Tablet, 20 MG PO QHS, TAB 10/24/16 Diltiazem Hcl (Diltiazem) 120 Mg Capsr, 120 MG PO DAILY 03/29/12 Medications Current Medications Morphine Sulfate (morphine) 2 mg Q4H PRN IV SEVERE PAIN LEVEL 7-10 Last administered on 08/06/18 12:47; Admin Dose 2 MG; Start 07/27/18 at 07:00 Ondansetron HCl (Zofran Inj) 4 mg Q6H PRN IV NAUSEA AND/OR VOMITING Last administered on 07/28/18 13:55; Admin Dose 4 MG; Start 07/27/18 at 07:00 Metronidazole 100 ml @ 100 mls/hr Q6 IVPB Last administered on 08/07/18 11:56; Admin Dose 100 MLS/HR; Start 07/27/18 at 12:00 Acetaminophen/ Hydrocodone Bitart ([place] (5/325)) 1 tab Q6H PRN PO breakthrough pain Last administered on 08/06/18 10:35; Admin Dose 1 TAB; Start 07/27/18 at 16:00 Docusate Sodium (Colace) 100 mg BID PRN PO CONSTIPATION Last administered on 06:16; Admin Dose 100 MG; Start 07/27/18 at 16:00 Pantoprazole (Protonix Iv) 40 mg BID@06,18 IV Last administered on 08/07/18 05:21; Admin Dose 40 MG; Start 07/29/18 at 18:00 Chlordiazepoxide/ Clidinium (Librax) 1 cap AC MEALS AND BEDTIME PO Last administered on 08/07/18 11:56; Admin Dose 1 CAP; Start 07/31/18 at 11:30 Ibuprofen (Motrin) 400 mg Q6H PRN PO MILD PAIN(1-3) OR TEMP>38C Last administered on 08/07/18 03:59; Admin Dose 400 MG; Start 08/02/18 at 01:00 Ceftriaxone Sodium 50 ml @ 100 mls/hr Q24H IVPB Last administered on 08/06/18at 20:53; Admin Dose 100 MLS/HR; Start 08/03/18 at 20:00 Olanzapine (Zyprexa) 5 mg QHS PO ; Start 08/04/18 at 21:00 Acetaminophen/ Aspirin/Caffeine (Excedrin) 1 tab Q6H PRN PO MIGRAINE Last administered on 08/07/18at 11:38; Admin Dose 1 TAB; Start 08/06/18 at 23:00 Polyethylene Glycol (Miralax) 17 gm DAILY PRN PO CONSTIPATION; Start 08/07/18 at 12:30 Allergies: Coded Allergies: No Known Drug Allergy (Unverified Allergy, Unknown, 07/18/18) Past Surgical History reviewed Social History reviewed Smoking Status: Former smoker ANGI MANZO NP August 07, 2018 12:50
--- NOTE | 2018-08-07 13:46 | CONS ---
Assessment/Plan Assessment/Plan Assessment/Plan (Daily) IMPRESSION: 1. Cholelithiasis with possible cholecystitis -MRCP negative -HIDA unremarkable 2. Abdominal pain. -improved, now lower abd better with Librax 3. Anemia, acute -will monitor closely -neg FOB 4. Hypercalcemia. 5. Multiple cysts on liver noted on MRCP 6. Diarrhea-resolved 7. Severe migraine headache better with Excedrin 8. Diarrhea secondary to medication Plan Continue librex and pain management Continue current care Patient declined a colonoscopy Pain management Stop MiraLAX and Amitiza Consultation Date/Type/Reason Admit Date/Time Jul 27, 2018 at 04:55 Initial Consult Date 07/28/18 Requesting Provider: CLARI KRISHNA Date/Time of Note DATE: 08/07/18 TIME: 13:45 24 HR Interval Summary Free Text/Dictation Patient is no abdominal pain and no headache She had a mild diarrhea Constitutional: improved Exam/Review of Systems Exam Vitals Vital Signs Date Temp Pulse Resp B/P (MAP) Pulse Ox O2 O2 Flow FiO2 Time Delivery Rate 08/07/18 98.6 78 18 120/68 96 08:00 (85) 08/06/18 Room Air 08:14 Intake and Output 08/06/18 08/06/18 08/07/18 1515:00 23:00 07:00 IntakeIntake Total 550 ml 550 ml 200 ml BalanceBalance 550 ml 550 ml 200 ml Constitutional: alert, oriented, well developed Psych: no complaints, nl mood/affect Head: normocephalic, atraumatic Eyes: nl conjunctiva, EOMI, nl lids, nl sclera, PERRL ENMT: nl external ears & nose, nl lips & teeth, nl nasal mucosa & septum Neck: supple, non-tender Respiratory: clear to auscultation, normal air movement Cardiovascular: regular rate and rhythm, nl pulses Gastrointestinal: soft, nl liver, spleen, non-tender Musculoskeletal: nl extremities to inspection, nl gait and stance Extremities: normal pulses 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, nl mental status, nl speech, nl strength Skin: nl turgor; No rash or lesions Lymph: nl lymph nodes Results Result Diagram: 08/07/18 0604 08/07/18 0604 Results 24hrs Laboratory Tests Test 08/07/18 06:04 White Blood Count 4.0 #L Red Blood Count 3.44 L Hemoglobin 10.2 L Hematocrit 31.4 L Mean Corpuscular Volume 91.3 Mean Corpuscular Hemoglobin 29.7 Mean Corpuscular Hemoglobin Concent 32.5 Red Cell Distribution Width 15.7 H Platelet Count 368 Mean Platelet Volume 9.6 Immature Granulocytes % 0.700 H Neutrophils % 54.7 Lymphocytes % 25.5 Monocytes % 14.6 H Eosinophils % 4.0 Basophils % 0.5 Nucleated Red Blood Cells % 0.0 Immature Granulocytes # 0.030 Neutrophils # 2.2 Lymphocytes # 1.0 Monocytes # 0.6 Eosinophils # 0.2 Basophils # 0.0 Nucleated Red Blood Cells # 0.0 Sodium Level 138 Potassium Level 4.0 Chloride Level 106 Carbon Dioxide Level 26 Anion Gap 6 Blood Urea Nitrogen 15 Creatinine 0.94 Est Glomerular Filtrat Rate mL/min > 60 Glucose Level 116 Calcium Level 9.4 Medications Medication Current Medications Morphine Sulfate (morphine) 2 mg Q4H PRN IV SEVERE PAIN LEVEL 7-10 Last administered on 08/06/18 12:47; Admin Dose 2 MG; Start 07/27/18 at 07:00 Ondansetron HCl (Zofran Inj) 4 mg Q6H PRN IV NAUSEA AND/OR VOMITING Last administered on 07/28/18 13:55; Admin Dose 4 MG; Start 07/27/18 at 07:00 Metronidazole 100 ml @ 100 mls/hr Q6 IVPB Last administered on 08/07/18 11:56; Admin Dose 100 MLS/HR; Start 07/27/18 at 12:00 Acetaminophen/ Hydrocodone Bitart ([place] (5/325)) 1 tab Q6H PRN PO breakthrough pain Last administered on 08/06/18 10:35; Admin Dose 1 TAB; Start 07/27/18 at 16:00 Docusate Sodium (Colace) 100 mg BID PRN PO CONSTIPATION Last administered on 08/03/18 06:16; Admin Dose 100 MG; Start 07/27/18 at 16:00 Pantoprazole (Protonix Iv) 40 mg BID@06,18 IV Last administered on 08/07/18 05:21; Admin Dose 40 MG; Start 07/29/18 at 18:00 Chlordiazepoxide/ Clidinium (Librax) 1 cap AC MEALS AND BEDTIME PO Last administered on 08/07/18 11:56; Admin Dose 1 CAP; Start 07/31/18 at 11:30 Ibuprofen (Motrin) 400 mg Q6H PRN PO MILD PAIN(1-3) OR TEMP>38C Last administered on 08/07/18 03:59; Admin Dose 400 MG; Start 08/02/18 at 01:00 Ceftriaxone Sodium 50 ml @ 100 mls/hr Q24H IVPB Last administered on 08/06/18 20:53; Admin Dose 100 MLS/HR; Start 08/03/18 at 20:00 Olanzapine (Zyprexa) 5 mg QHS PO ; Start 08/04/18 at 21:00 Acetaminophen/ Aspirin/Caffeine (Excedrin) 1 tab Q6H PRN PO MIGRAINE Last administered on 08/07/18 11:38; Admin Dose 1 TAB; Start 08/06/18 at 23:00 Polyethylene Glycol (Miralax) 17 gm DAILY PRN PO CONSTIPATION; Start 08/07/18 at 12:30 BETH ABBASI MD August 07, 2018 13:46
[2018-08-07 14:00] VITALS: BP 112/54; PULSE 96; RESP 20
[2018-08-07] MEDS: ONDANSETRON 4 MG INJ IV PRN (15:28)
--- NOTE | 2018-08-07 19:23 | CONS ---
Assessment/Plan Assessment/Plan Hospital Course (Demo Recall) assessment/impression - palpable R breast mass/swelling, R axillary lymphadenopathy - h/o R mastitis, Pt took Bactrim x 7 days in 07/2018 - ?questionable R breast mass; TORRI on 08/04/2018 did not identify mass/fluid collection/abscess - cholelithiasis without definite e/o acute cholecystitis, choledocholithiasis and cholangitis, clinically improved - COPD - lung CA - CAD revised recommendations - I recommend mammogram as outpatient (it is not available at [facility]) and referral to a breast specialist - d/c ceftriaxone (08/03/2018-) and metronidazole (07/27/2018-) - start cefazolin (08/07/2018) management d/w Pt Consultation Date/Type/Reason Admit Date/Time Jul 27, 2018 at 04:55 Initial Consult Date 08/03/18 Type of Consult ID Requesting Provider: CLARI KRISHNA Date/Time of Note DATE: 08/07/18 TIME: 19:18 24 HR Interval Summary Constitutional: improved Detailed Summary Eyes: no complaints ENT: no complaints Respiratory: no complaints Cardiovascular: no complaints Gastrointestinal: nausea; No decreased appetite, No diarrhea Genitourinary: no complaints Musculoskeletal: no complaints Skin: other (+swelling and discomfort of R breast) Neurologic: no complaints Lymphatic: No lymphadema Exam/Review of Systems Exam Vitals Vital Signs Date Temp Pulse Resp B/P (MAP) Pulse Ox O2 O2 Flow FiO2 Time Delivery Rate 08/07/18 98.5 96 20 112/54 96 14:00 (73) 08/06/18 Room Air 08:14 Intake and Output 08/06/18 08/06/18 08/07/18 1515:00 23:00 07:00 IntakeIntake Total 550 ml 550 ml 200 ml BalanceBalance 550 ml 550 ml 200 ml Constitutional: frail Psych: no complaints, nl mood/affect Head: normocephalic, atraumatic Eyes: nl conjunctiva, nl lids, nl sclera ENMT: nl external ears & nose, nl nasal mucosa & septum, mucosa pink and moist Neck: supple, other (not swollen) Respiratory: clear to auscultation, normal air movement Cardiovascular: regular rate and rhythm, nl pulses Gastrointestinal: soft, non-tender; No distended Musculoskeletal: nl extremities to inspection Extremities: No edema Neurological: [employer] II-XII intact, nl mental status, nl speech Skin: other (+hard R breast mass that is palpable (TORRI did not identify it)) Lymph: other (R axillary 1 cm 1 cm rubbery) Results Result Diagram: 08/07/18 0604 08/07/18 0604 Results 24hrs Laboratory Tests Test 08/07/18 06:04 White Blood Count 4.0 #L Red Blood Count 3.44 L Hemoglobin 10.2 L Hematocrit 31.4 L Mean Corpuscular Volume 91.3 Mean Corpuscular Hemoglobin 29.7 Mean Corpuscular Hemoglobin Concent 32.5 Red Cell Distribution Width 15.7 H Platelet Count 368 Mean Platelet Volume 9.6 Immature Granulocytes % 0.700 H Neutrophils % 54.7 Lymphocytes % 25.5 Monocytes % 14.6 H Eosinophils % 4.0 Basophils % 0.5 Nucleated Red Blood Cells % 0.0 Immature Granulocytes # 0.030 Neutrophils # 2.2 Lymphocytes # 1.0 Monocytes # 0.6 Eosinophils # 0.2 Basophils # 0.0 Nucleated Red Blood Cells # 0.0 Sodium Level 138 Potassium Level 4.0 Chloride Level 106 Carbon Dioxide Level 26 Anion Gap 6 Blood Urea Nitrogen 15 Creatinine 0.94 Est Glomerular Filtrat Rate mL/min > 60 Glucose Level 116 Calcium Level 9.4 Medications Medication Current Medications Morphine Sulfate (morphine) 2 mg Q4H PRN IV SEVERE PAIN LEVEL 7-10 Last administered on 08/06/18 12:47; Admin Dose 2 MG; Start 07/27/18 at 07:00 Ondansetron HCl (Zofran Inj) 4 mg Q6H PRN IV NAUSEA AND/OR VOMITING Last administered on 08/07/18 15:28; Admin Dose 4 MG; Start 07/27/18 at 07:00 Metronidazole 100 ml @ 100 mls/hr Q6 IVPB Last administered on 08/07/18 17:26; Admin Dose 100 MLS/HR; Start 07/27/18 at 12:00 Acetaminophen/ Hydrocodone Bitart ([place] (5/325)) 1 tab Q6H PRN PO breakthrough pain Last administered on 08/06/18 10:35; Admin Dose 1 TAB; Start 07/27/18 at 16:00 Docusate Sodium (Colace) 100 mg BID PRN PO CONSTIPATION Last administered on 08/03/18 06:16; Admin Dose 100 MG; Start 07/27/18 at 16:00 Pantoprazole (Protonix Iv) 40 mg BID@06,18 IV Last administered on 08/07/18 17:26; Admin Dose 40 MG; Start 07/29/18 at 18:00 Chlordiazepoxide/ Clidinium (Librax) 1 cap AC MEALS AND BEDTIME PO Last administered on 08/07/18 17:26; Admin Dose 1 CAP; Start 07/31/18 at 11:30 Ibuprofen (Motrin) 400 mg Q6H PRN PO MILD PAIN(1-3) OR TEMP>38C Last administered on 08/07/18 14:21; Admin Dose 400 MG; Start 08/02/18 at 01:00 Ceftriaxone Sodium 50 ml @ 100 mls/hr Q24H IVPB Last administered on 08/06/18 20:53; Admin Dose 100 MLS/HR; Start 08/03/18 at 20:00 Olanzapine (Zyprexa) 5 mg QHS PO ; Start 08/04/18 at 21:00 Acetaminophen/ Aspirin/Caffeine (Excedrin) 1 tab Q6H PRN PO MIGRAINE Last administered on 08/07/18 17:48; Admin Dose 1 TAB; Start 08/06/18 at 23:00 Polyethylene Glycol (Miralax) 17 gm DAILY PRN PO CONSTIPATION; Start 08/07/18 at 12:30 DAKOTA MCCLAIN M.D. August 07, 2018 19:23
[2018-08-07 20:00] VITALS: BP 119/67; PULSE 91; RESP 18
[2018-08-07] MEDS: OLANZAPINE 5 MG TAB PO SCH (20:32)
[2018-08-07] MEDS: CEFAZOLIN 1 GM/50 ML (PMX) 50 ML IVPB SCH (21:54)
[2018-08-08] MEDS: ASA/ACETAMINOPHEN/CAFF TAB PO PRN ×4 (00:20→22:19)
[2018-08-08 02:00] VITALS: BP 103/55; PULSE 98; RESP 18
[2018-08-08] MEDS: IBUPROFEN 400 MG TAB PO PRN ×3 (03:19→19:42)
[2018-08-08] MEDS: CEFAZOLIN 1 GM/50 ML (PMX) 50 ML IVPB SCH ×3 (05:52→22:16)
[2018-08-08] MEDS: PANTOPRAZOLE 40 MG INJ IV SCH ×2 (05:52→17:30)
[2018-08-08 08:00] VITALS: BP 136/77; PULSE 84; RESP 18
[2018-08-08] MEDS: CHLORDIAZEPOXIDE/CLIDINIUM CAP PO SCH ×4 (08:01→22:16)
--- NOTE | 2018-08-08 13:26 | PN ---
Date/Time of Note Date/Time of Note DATE: 08/08/18 TIME: 13:25 Assessment/Plan VTE Prophylaxis Risk score (from Ns)>0 risk: 5 SCD applied (from Ns): Yes Pharmacological prophylaxis: LMWH Lines/Catheters IV C[facility] Type [facility]from [facility] Saline Lock Urinary Cath still in place: No Assessment/Plan Hospital Course - cholecystitis - id on case - HIDA scan - cholelithiasis -GI follows - per surgery consult - Acute Headache- none at present - better with Excedrin - CT brain showed 1. Mild generalized cerebral volume loss. 2. No evidence of intracranial masses hemorrhages or midline shift. - Right breast pain/swelling- CEA 2.8 wnl -08/04/2018 US -No sonographic evidence of malignancy. No interval change. No abscess, fluid collection, or hematoma. - mammogram recommended ; prescription in patient chart - 07/26/2018- right breast US -1. No mass or fluid collection identified. - 2. The ultrasound does not take a place of a conventional digital minimal mammogram. The patient is strongly recommended to obtain digital mammography for more thorough evaluation of the right breast lump. Neoplasm is not excluded on the basis of ultrasound. - Anemia- Hgb stable- 10.1 Result Diagram: 08/08/18 0445 08/08/18 0445 Results 24hrs Laboratory Tests Test 08/08/18 04:45 White Blood Count 4.3 L Red Blood Count 3.36 L Hemoglobin 9.8 L Hematocrit 30.2 L Mean Corpuscular Volume 89.9 Mean Corpuscular Hemoglobin 29.2 Mean Corpuscular Hemoglobin Concent 32.5 Red Cell Distribution Width 15.6 H Platelet Count 328 Mean Platelet Volume 9.9 Immature Granulocytes % 0.500 H Neutrophils % 60.7 Lymphocytes % 21.6 Monocytes % 14.4 H Eosinophils % 2.3 Basophils % 0.5 Nucleated Red Blood Cells % 0.0 Immature Granulocytes # 0.020 Neutrophils # 2.6 Lymphocytes # 0.9 Monocytes # 0.6 Eosinophils # 0.1 Basophils # 0.0 Nucleated Red Blood Cells # 0.0 Sodium Level 139 Potassium Level 3.9 Chloride Level 105 Carbon Dioxide Level 27 Anion Gap 7 Blood Urea Nitrogen 16 Creatinine 1.01 H Est Glomerular Filtrat Rate mL/min > 60 Glucose Level 102 Calcium Level 9.1 Subjective 24 Hr Interval Summary Free Text/Dictation Patient denies any abdominal pain, diarrhea Exam/Review of Systems Exam Vitals Vital Signs Date Temp Pulse Resp B/P (MAP) Pulse Ox O2 O2 Flow FiO2 Time Delivery Rate 08/08/18 97.8 13:07 08/08/18 84 18 136/77 96 08:00 (96) 08/06/18 Room Air 08:14 Intake and Output 08/07/18 08/07/18 08/08/18 1515:00 23:00 07:00 IntakeIntake Total 1160 ml 630 ml 550 ml BalanceBalance 1160 ml 630 ml 550 ml Constitutional: well developed Head: normocephalic, atraumatic Neck: supple Respiratory: clear to auscultation Cardiovascular: regular rate and rhythm Gastrointestinal: soft, non-tender Extremities: normal pulses Results Results 24hrs Laboratory Tests Test 08/08/18 04:45 White Blood Count 4.3 L Red Blood Count 3.36 L Hemoglobin 9.8 L Hematocrit 30.2 L Mean Corpuscular Volume 89.9 Mean Corpuscular Hemoglobin 29.2 Mean Corpuscular Hemoglobin Concent 32.5 Red Cell Distribution Width 15.6 H Platelet Count 328 Mean Platelet Volume 9.9 Immature Granulocytes % 0.500 H Neutrophils % 60.7 Lymphocytes % 21.6 Monocytes % 14.4 H Eosinophils % 2.3 Basophils % 0.5 Nucleated Red Blood Cells % 0.0 Immature Granulocytes # 0.020 Neutrophils # 2.6 Lymphocytes # 0.9 Monocytes # 0.6 Eosinophils # 0.1 Basophils # 0.0 Nucleated Red Blood Cells # 0.0 Sodium Level 139 Potassium Level 3.9 Chloride Level 105 Carbon Dioxide Level 27 Anion Gap 7 Blood Urea Nitrogen 16 Creatinine 1.01 H Est Glomerular Filtrat Rate mL/min > 60 Glucose Level 102 Calcium Level 9.1 Medications Medication Current Medications Morphine Sulfate (morphine) 2 mg Q4H PRN IV SEVERE PAIN LEVEL 7-10 Last administered on 08/06/18at 12:47; Admin Dose 2 MG; Start 07/27/18 at 07:00 Ondansetron HCl (Zofran Inj) 4 mg Q6H PRN IV NAUSEA AND/OR VOMITING Last administered on 08/07/18at 15:28; Admin Dose 4 MG; Start 07/27/18 at 07:00 Acetaminophen/ Hydrocodone Bitart ([place] (5/325)) 1 tab Q6H PRN PO breakthrough pain Last administered on 08/06/18 10:35; Admin Dose 1 TAB; Start 07/27/18 at 16:00 Docusate Sodium (Colace) 100 mg BID PRN PO CONSTIPATION Last administered on 08/03/18 06:16; Admin Dose 100 MG; Start 07/27/18 at 16:00 Pantoprazole (Protonix Iv) 40 mg BID@06,18 IV Last administered on 08/08/18 05:52; Admin Dose 40 MG; Start 07/29/18 at 18:00 Chlordiazepoxide/ Clidinium (Librax) 1 cap AC MEALS AND BEDTIME PO Last administered on 08/08/18 11:51; Admin Dose 1 CAP; Start 07/31/18 at 11:30 Ibuprofen (Motrin) 400 mg Q6H PRN PO MILD PAIN(1-3) OR TEMP>38C Last administered on 08/08/18 12:22; Admin Dose 400 MG; Start 08/02/18 at 01:00 Olanzapine (Zyprexa) 5 mg QHS PO Last administered on 08/07/18 20:32; Admin Dose 5 MG; Start 08/04/18 at 21:00 Acetaminophen/ Aspirin/Caffeine (Excedrin) 1 tab Q6H PRN PO MIGRAINE Last administered on 08/08/18 08:01; Admin Dose 1 TAB; Start 08/06/18 at 23:00 Polyethylene Glycol (Miralax) 17 gm DAILY PRN PO CONSTIPATION; Start 08/07/18 at 12:30 Cefazolin Sodium 50 ml @ 100 mls/hr Q8 IVPB Last administered on 08/08/18 05:52; Admin Dose 100 MLS/HR; Start 08/07/18 at 22:00 CYNDIE CAT August 08, 2018 13:26
[2018-08-08 14:00] VITALS: BP 130/80; PULSE 76; RESP 20
--- NOTE | 2018-08-08 14:17 | PN ---
Date/Time of Note Date/Time of Note DATE: 08/08/18 TIME: 14:16 Assessment/Plan Lines/Catheters IV Catheter Type (from Nrs): Saline Lock Cruz in Place (from Nrs): No Assessment/Plan Chief Complaint/Hosp Course 1. Abdominal pain ? etiology. Non surgical at this time (doubt gallbladder): resolved -GI f/u, currently on antispasmodics> refusing colonoscopy -PPI -Pain management as needed 2. Cholelithiasis: HIDA negative; MRCP noted without choledocholithiasis or cholecystitis -No emergent surgical intervention necessary at this time > may consider cholecystectomy at some point if not improving -ok for dc from surgical standpoint 3. Hypochromic anemia: -Monitor and transfuse as needed 4. Breast pain: us noted -discussed biopsy w pt, currently refusing -mammogram as outpatient and f/u w pcp 5. Intractable headaches: much improved -Medical management -per neuro 6. Polyuria: incomplete bladder emptying -outpatient urology fu Thank you. Patient seen and examined in collaboration with Dr. Rosalino Portillo. Subjective 24 Hr Interval Summary H/a and abd pain improved. No fevers, chills, sob, congested cough, cp, palpi tations, penaloza, dizziness, n/v/d/dysuria. Exam/Review of Systems Vital Signs Vitals Vital Signs Date Temp Pulse Resp B/P (MAP) Pulse Ox O2 O2 Flow FiO2 Time Delivery Rate 08/08/18 97.8 13:07 08/08/18 84 18 136/77 96 08:00 (96) 08/06/18 Room Air 08:14 Intake and Output 08/07/18 08/07/18 08/08/18 1414:59 22:59 06:59 IntakeIntake Total 1160 ml 630 ml 550 ml BalanceBalance 1160 ml 630 ml 550 ml Exam Free Text/Dictation Constitutional: alert, oriented Psych: anxiety Head: normocephalic, atraumatic Eyes: nl conjunctiva, EOMI, nl lids, nl sclera ENMT: nl external ears & nose, nl lips & teeth, mucosa pink and moist Neck: supple, non-tender; No jvd Chest: right breast mobile mass noted; no nipple drainage/tenderness Respiratory: normal air movement; No congested cough Cardiovascular: regular rate and rhythm, nl pulses; No edema Gastrointestinal: soft, min tender in lower quadrants without rebound/guarding/rigidity; ND Genitourinary - Female: nl external genitalia Musculoskeletal: nl extremities to inspection; No joint tenderness, No muscle weakness Extremities: normal pulses; No edema Neurological: nl mental status, nl speech, nl strength Skin: nl turgor; No rash or lesions Lymph: nl lymph nodes Results Result Diagram: 08/08/18 0445 08/08/18 0445 ROC MANNING NP August 08, 2018 14:17
--- NOTE | 2018-08-08 15:43 | CONS ---
Assessment/Plan Assessment/Plan Assessment/Plan (Daily) IMPRESSION: 1. Cholelithiasis with possible cholecystitis -MRCP negative -HIDA unremarkable 2. Abdominal pain. -improved, now lower abd better with Librax 3. Anemia, acute -will monitor closely -neg FOB 4. Hypercalcemia. 5. Multiple cysts on liver noted on MRCP 6. Diarrhea-resolved 7. Severe migraine headache better with Excedrin 8. Diarrhea secondary to medication Plan Continue librex and pain management Continue current care Patient declined a colonoscopy Pain management Stop MiraLAX and Amitiza Patient declined both EGD and colonoscopy Consultation Date/Type/Reason Admit Date/Time Jul 27, 2018 at 04:55 Initial Consult Date 07/28/18 Requesting Provider: CLARI KRISHNA Date/Time of Note DATE: 08/08/18 TIME: 15:43 24 HR Interval Summary Constitutional: no complaints, improved Exam/Review of Systems Exam Vitals Vital Signs Date Temp Pulse Resp B/P (MAP) Pulse Ox O2 O2 Flow FiO2 Time Delivery Rate 08/08/18 97.8 13:07 08/08/18 84 18 136/77 96 08:00 (96) 08/06/18 Room Air 08:14 Intake and Output 08/07/18 08/07/18 08/08/18 1515:00 23:00 07:00 IntakeIntake Total 1160 ml 630 ml 550 ml BalanceBalance 1160 ml 630 ml 550 ml Constitutional: alert, oriented, well developed Psych: no complaints, nl mood/affect Head: normocephalic, atraumatic Eyes: nl conjunctiva, EOMI, nl lids, nl sclera, PERRL ENMT: nl external ears & nose, nl lips & teeth, nl nasal mucosa & septum Neck: supple, non-tender Respiratory: clear to auscultation, normal air movement Cardiovascular: regular rate and rhythm, nl pulses Gastrointestinal: soft, nl liver, spleen, non-tender Musculoskeletal: nl extremities to inspection, nl gait and stance Extremities: normal pulses Neurological: [employer]ORDINATOR II-XII intact, nl mental status, nl speech, nl strength Skin: nl turgor; No rash or lesions Lymph: nl lymph nodes Results Result Diagram: 08/08/18 0445 08/08/18 0445 Results 24hrs Laboratory Tests Test 08/08/18 04:45 White Blood Count 4.3 L Red Blood Count 3.36 L Hemoglobin 9.8 L Hematocrit 30.2 L Mean Corpuscular Volume 89.9 Mean Corpuscular Hemoglobin 29.2 Mean Corpuscular Hemoglobin Concent 32.5 Red Cell Distribution Width 15.6 H Platelet Count 328 Mean Platelet Volume 9.9 Immature Granulocytes % 0.500 H Neutrophils % 60.7 Lymphocytes % 21.6 Monocytes % 14.4 H Eosinophils % 2.3 Basophils % 0.5 Nucleated Red Blood Cells % 0.0 Immature Granulocytes # 0.020 Neutrophils # 2.6 Lymphocytes # 0.9 Monocytes # 0.6 Eosinophils # 0.1 Basophils # 0.0 Nucleated Red Blood Cells # 0.0 Sodium Level 139 Potassium Level 3.9 Chloride Level 105 Carbon Dioxide Level 27 Anion Gap 7 Blood Urea Nitrogen 16 Creatinine 1.01 H Est Glomerular Filtrat Rate mL/min > 60 Glucose Level 102 Calcium Level 9.1 Medications Medication Current Medications Morphine Sulfate (morphine) 2 mg Q4H PRN IV SEVERE PAIN LEVEL 7-10 Last administered on 08/06/18 12:47; Admin Dose 2 MG; Start 07/27/18 at 07:00 Ondansetron HCl (Zofran Inj) 4 mg Q6H PRN IV NAUSEA AND/OR VOMITING Last administered on 08/07/18 15:28; Admin Dose 4 MG; Start 07/27/18 at 07:00 Acetaminophen/ Hydrocodone Bitart ([place] (5/325)) 1 tab Q6H PRN PO breakthrough pain Last administered on 08/06/18 10:35; Admin Dose 1 TAB; Start 07/27/18 at 16:00 Docusate Sodium (Colace) 100 mg BID PRN PO CONSTIPATION Last administered on 08/03/18 06:16; Admin Dose 100 MG; Start 07/27/18 at 16:00 Pantoprazole (Protonix Iv) 40 mg BID@,18 IV Last administered on 08/08/18 05:52; Admin Dose 40 MG; Start 07/29/18 at 18:00 Chlordiazepoxide/ Clidinium (Librax) 1 cap AC MEALS AND BEDTIME PO Last administered on 08/08/18 11:51; Admin Dose 1 CAP; Start 07/31/18 at 11:30 Ibuprofen (Motrin) 400 mg Q6H PRN PO MILD PAIN(1-3) OR TEMP>38C Last administered on 08/08/18 12:22; Admin Dose 400 MG; Start 08/02/18 at 01:00 Olanzapine (Zyprexa) 5 mg QHS PO Last administered on 08/07/18 20:32; Admin Dose 5 MG; Start 08/04/18 at 21:00 Acetaminophen/ Aspirin/Caffeine (Excedrin) 1 tab Q6H PRN PO MIGRAINE Last administered on 08/08/18 15:33; Admin Dose 1 TAB; Start 08/06/18 at 23:00 Polyethylene Glycol (Miralax) 17 gm DAILY PRN PO CONSTIPATION; Start 08/07/18 at 12:30 Cefazolin Sodium 50 ml @ 100 mls/hr Q8 IVPB Last administered on 08/08/18 14:07; Admin Dose 100 MLS/HR; Start 08/07/18 at 22:00 BETH ABBASI MD August 08, 2018 15:43
[2018-08-08 20:24] VITALS: BP 147/69; PULSE 92; RESP 18
[2018-08-08] MEDS: OLANZAPINE 5 MG TAB PO SCH (22:16)
--- NOTE | 2018-08-08 23:07 | CONS ---
Assessment/Plan Assessment/Plan Hospital Course (Demo Recall) assessment/impression - palpable R breast mass/swelling, R axillary lymphadenopathy - h/o R mastitis, Pt took Bactrim x 7 days in 07/2018 - ?questionable R breast mass; TORRI on 08/04/2018 did not identify mass/fluid collection/abscess - cholelithiasis without definite e/o acute cholecystitis, choledocholithiasis and cholangitis, clinically improved - COPD - lung CA - CAD revised recommendations - I recommend mammogram as outpatient (it is not available at [facility]) and referral to a breast specialist - continue cefazolin (08/07/2018). Pt previously received ceftriaxone (08/03/2018- 08/06/2018) and metronidazole (07/27/2018-08/06/2018) management d/w Pt Consultation Date/Type/Reason Admit Date/Time Jul 27, 2018 at 04:55 Initial Consult Date 08/03/18 Type of Consult ID Requesting Provider: CLARI KRISHNA Date/Time of Note DATE: 08/08/18 TIME: 23:04 24 HR Interval Summary Constitutional: improved Detailed Summary Eyes: no complaints ENT: no complaints Respiratory: no complaints Cardiovascular: no complaints Gastrointestinal: No diarrhea, No nausea, No vomiting Genitourinary: no complaints Musculoskeletal: no complaints Skin: other (+R breast mass) Neurologic: no complaints Exam/Review of Systems Exam Vitals Vital Signs Date Temp Pulse Resp B/P (MAP) Pulse Ox O2 O2 Flow FiO2 Time Delivery Rate 08/08/18 98.1 92 18 147/69 96 20:24 (95) 08/06/18 Room Air 08:14 Intake and Output 08/07/18 08/07/18 08/08/18 1414:59 22:59 06:59 IntakeIntake Total 1160 ml 630 ml 550 ml BalanceBalance 1160 ml 630 ml 550 ml Constitutional: alert, oriented, frail Psych: no complaints, nl mood/affect Head: normocephalic, atraumatic Eyes: nl conjunctiva, nl lids ENMT: nl external ears & nose, nl nasal mucosa & septum, mucosa pink and moist Neck: supple; No non-tender Respiratory: clear to auscultation, normal air movement Cardiovascular: regular rate and rhythm, nl pulses Gastrointestinal: soft, non-tender; No distended, No tender Musculoskeletal: nl extremities to inspection Extremities: No edema Skin: other (+R breast mass, palpable) Results Result Diagram: 08/08/18 0445 08/08/18 0445 Results 24hrs Laboratory Tests Test 08/08/18 04:45 White Blood Count 4.3 L Red Blood Count 3.36 L Hemoglobin 9.8 L Hematocrit 30.2 L Mean Corpuscular Volume 89.9 Mean Corpuscular Hemoglobin 29.2 Mean Corpuscular Hemoglobin Concent 32.5 Red Cell Distribution Width 15.6 H Platelet Count 328 Mean Platelet Volume 9.9 Immature Granulocytes % 0.500 H Neutrophils % 60.7 Lymphocytes % 21.6 Monocytes % 14.4 H Eosinophils % 2.3 Basophils % 0.5 Nucleated Red Blood Cells % 0.0 Immature Granulocytes # 0.020 Neutrophils # 2.6 Lymphocytes # 0.9 Monocytes # 0.6 Eosinophils # 0.1 Basophils # 0.0 Nucleated Red Blood Cells # 0.0 Sodium Level 139 Potassium Level 3.9 Chloride Level 105 Carbon Dioxide Level 27 Anion Gap 7 Blood Urea Nitrogen 16 Creatinine 1.01 H Est Glomerular Filtrat Rate mL/min > 60 Glucose Level 102 Calcium Level 9.1 Medications Medication Current Medications Morphine Sulfate (morphine) 2 mg Q4H PRN IV SEVERE PAIN LEVEL 7-10 Last administered on 08/06/18 12:47; Admin Dose 2 MG; Start 07/27/18 at 07:00 Ondansetron HCl (Zofran Inj) 4 mg Q6H PRN IV NAUSEA AND/OR VOMITING Last administered on 08/07/18 15:28; Admin Dose 4 MG; Start 07/27/18 at 07:00 Acetaminophen/ Hydrocodone Bitart ([place] (5/325)) 1 tab Q6H PRN PO breakthrough pain Last administered on 08/06/18 10:35; Admin Dose 1 TAB; Start 07/27/18 at 16:00 Docusate Sodium (Colace) 100 mg BID PRN PO CONSTIPATION Last administered on 08/03/18 06:16; Admin Dose 100 MG; Start 07/27/18 at 16:00 Pantoprazole (Protonix Iv) 40 mg BID@06,18 IV Last administered on 08/08/18 17:30; Admin Dose 40 MG; Start 07/29/18 at 18:00 Chlordiazepoxide/ Clidinium (Librax) 1 cap AC MEALS AND BEDTIME PO Last administered on 08/08/18 22:16; Admin Dose 1 CAP; Start 07/31/18 at 11:30 Ibuprofen (Motrin) 400 mg Q6H PRN PO MILD PAIN(1-3) OR TEMP>38C Last administered on 08/08/18 19:42; Admin Dose 400 MG; Start 08/02/18 at 01:00 Olanzapine (Zyprexa) 5 mg QHS PO Last administered on 08/08/18 22:16; Admin Dose 5 MG; Start 08/04/18 at 21:00 Acetaminophen/ Aspirin/Caffeine (Excedrin) 1 tab Q6H PRN PO MIGRAINE Last administered on 08/08/18 22:19; Admin Dose 1 TAB; Start 08/06/18 at 23:00 Polyethylene Glycol (Miralax) 17 gm DAILY PRN PO CONSTIPATION; Start 08/07/18 at 12:30 Cefazolin Sodium 50 ml @ 100 mls/hr Q8 IVPB Last administered on 08/08/18 22:16; Admin Dose 100 MLS/HR; Start 08/07/18 at 22:00 DAKOTA MCCLAIN M.D. August 08, 2018 23:06
[2018-08-09 02:00] VITALS: BP 113/62; PULSE 81; RESP 17
[2018-08-09] MEDS: IBUPROFEN 400 MG TAB PO PRN ×3 (04:11→19:56)
[2018-08-09] MEDS: CEFAZOLIN 1 GM/50 ML (PMX) 50 ML IVPB SCH ×2 (05:54→15:26)
[2018-08-09] MEDS: PANTOPRAZOLE 40 MG INJ IV SCH ×2 (05:54→18:29)
[2018-08-09 08:31] VITALS: BP 122/67; PULSE 80; RESP 17
[2018-08-09] MEDS: CHLORDIAZEPOXIDE/CLIDINIUM CAP PO SCH ×4 (08:49→20:00)
[2018-08-09] MEDS: ASA/ACETAMINOPHEN/CAFF TAB PO PRN ×3 (08:49→23:41)
--- NOTE | 2018-08-09 13:32 | PN ---
Date/Time of Note Date/Time of Note DATE: 08/09/18 TIME: 13:31 Assessment/Plan VTE Prophylaxis Risk score (from Ns)>0 risk: 4 SCD applied (from Ns): Yes Pharmacological prophylaxis: LMWH Lines/Catheters IV Catheter Type (from [facility]): Saline Lock Urinary Cath still in place: No Assessment/Plan Hospital Course - cholecystitis - id on case - HIDA scan - cholelithiasis -GI follows - per surgery consult - Acute Headache- none at present - better with Excedrin - CT brain showed 1. Mild generalized cerebral volume loss. 2. No evidence of intracranial masses hemorrhages or midline shift. - Right breast pain/swelling- CEA 2.8 wnl -08/04/2018 US -No sonographic evidence of malignancy. No interval change. No abscess, fluid collection, or hematoma. - mammogram recommended ; prescription in patient chart - 07/26/2018- right breast US -1. No mass or fluid collection identified. - 2. The ultrasound does not take a place of a conventional digital minimal mammogram. The patient is strongly recommended to obtain digital mammography for more thorough evaluation of the right breast lump. Neoplasm is not excluded on the basis of ultrasound. - Anemia- Hgb stable- 10.1 Result Diagram: 08/08/18 0445 08/08/18 044 Subjective 24 Hr Interval Summary Free Text/Dictation Patient notes intermittent abdominal discomfort and headaches Exam/Review of Systems Exam Vitals Vital Signs Date Temp Pulse Resp B/P (MAP) Pulse Ox O2 O2 Flow FiO2 Time Delivery Rate 08/09/18 98.2 80 17 122/67 98 08:31 (85) 08/06/18 Room Air 08:14 Intake and Output 08/08/18 08/08/18 08/09/18 1515:00 23:00 07:00 IntakeIntake Total 860 ml 290 ml 1000 ml BalanceBalance 860 ml 290 ml 1000 ml Constitutional: well developed Head: normocephalic, atraumatic Neck: supple Respiratory: clear to auscultation Cardiovascular: regular rate and rhythm Gastrointestinal: soft, non-tender Extremities: normal pulses Medications Medication Current Medications Morphine Sulfate (morphine) 2 mg Q4H PRN IV SEVERE PAIN LEVEL 7-10 Last administered on 08/06/18at 12:47; Admin Dose 2 MG; Start 07/27/18 at 07:00 Ondansetron HCl (Zofran Inj) 4 mg Q6H PRN IV NAUSEA AND/OR VOMITING Last administered on 08/07/18 15:28; Admin Dose 4 MG; Start 07/27/18 at 07:00 Acetaminophen/ Hydrocodone Bitart ([place] (5/325)) 1 tab Q6H PRN PO breakthrough pain Last administered on 08/06/18 10:35; Admin Dose 1 TAB; Start 07/27/18 at 16:00 Docusate Sodium (Colace) 100 mg BID PRN PO CONSTIPATION Last administered on 08/03/18 06:16; Admin Dose 100 MG; Start 07/27/18 at 16:00 Pantoprazole (Protonix Iv) 40 mg BID@06,18 IV Last administered on 08/09/18 05:54; Admin Dose 40 MG; Start 07/29/18 at 18:00 Chlordiazepoxide/ Clidinium (Librax) 1 cap AC MEALS AND BEDTIME PO Last administered on 08/09/18 12:25; Admin Dose 1 CAP; Start 07/31/18 at 11:30 Ibuprofen (Motrin) 400 mg Q6H PRN PO MILD PAIN(1-3) OR TEMP>38C Last administered on 08/09/18 12:25; Admin Dose 400 MG; Start 08/02/18 at 01:00 Olanzapine (Zyprexa) 5 mg QHS PO Last administered on 08/08/18 22:16; Admin Dose 5 MG; Start 08/04/18 at 21:00 Acetaminophen/ Aspirin/Caffeine (Excedrin) 1 tab Q6H PRN PO MIGRAINE Last administered on 08/09/18 08:49; Admin Dose 1 TAB; Start 08/06/18 at 23:00 Polyethylene Glycol (Miralax) 17 gm DAILY PRN PO CONSTIPATION; Start 08/07/18 at 12:30 Cefazolin Sodium 50 ml @ 100 mls/hr Q8 IVPB Last administered on 08/09/18 05:54; Admin Dose 100 MLS/HR; Start 08/07/18 at 22:00 CYNDIE CAT August 09, 2018 13:32
[2018-08-09 14:23] VITALS: BP 119/67; PULSE 93; RESP 18
--- NOTE | 2018-08-09 15:36 | PN ---
Date/Time of Note Date/Time of Note DATE: 08/09/18 TIME: 15:34 Assessment/Plan Lines/Catheters IV Catheter Type (from Nrs): Saline Lock Cruz in Place (from Nrs): No Assessment/Plan Chief Complaint/Hosp Course 1. Abdominal pain ? etiology. Non surgical at this time (doubt gallbladder): resolved;refusing colonoscopy -GI f/u -PPI, antispasmodics -Pain management as needed 2. Cholelithiasis: HIDA negative; MRCP noted without choledocholithiasis or cholecystitis -No emergent surgical intervention necessary at this time > may consider cholecystectomy at some point if not improving -ok for dc from surgical standpoint 3. Hypochromic anemia: -Monitor and transfuse as needed 4. Breast pain: us noted -discussed biopsy w pt, currently refusing -mammogram as outpatient and f/u w pcp 5. Intractable headaches: much improved -Medical management -per neuro 6. Polyuria: incomplete bladder emptying -outpatient urology fu Thank you. Patient seen and examined in collaboration with Dr. Rosalino Portillo. Subjective 24 Hr Interval Summary No current abdominal pain. Headaches improved. + Bowel function. No fevers, chills, sob, congested cough, cp, palpitations, penaloza, dizziness, nausea, vomiting, diarrhea, dysuria. Exam/Review of Systems Vital Signs Vitals Vital Signs Date Temp Pulse Resp B/P (MAP) Pulse Ox O2 O2 Flow FiO2 Time Delivery Rate 08/09/18 98.0 93 18 119/67 97 Room Air 14:23 (84) Intake and Output 08/08/18 08/08/18 08/09/18 1515:00 23:00 07:00 IntakeIntake Total 860 ml 290 ml 1000 ml BalanceBalance 860 ml 290 ml 1000 ml Exam Free Text/Dictation Constitutional: alert, oriented Psych: anxiety Head: normocephalic, atraumatic Eyes: nl conjunctiva, EOMI, nl lids, nl sclera ENMT: nl external ears & nose, nl lips & teeth, mucosa pink and moist Neck: supple, non-tender; No jvd Chest: right breast mobile mass noted; no nipple drainage/tenderness Respiratory: normal air movement; No congested cough Cardiovascular: regular rate and rhythm, nl pulses; No edema Gastrointestinal: soft, min tender in lower quadrants without rebound/guarding/rigidity; ND Genitourinary - Female: nl external genitalia Musculoskeletal: nl extremities to inspection; No joint tenderness, No muscle weakness Extremities: normal pulses; No edema Neurological: nl mental status, nl speech, nl strength Skin: nl turgor; No rash or lesions Lymph: nl lymph nodes Results Result Diagram: 08/08/18 0445 08/08/18 0445 ROC MANNING NP August 09, 2018 15:36
--- NOTE | 2018-08-09 15:52 | CONS ---
Assessment/Plan Assessment/Plan Assessment/Plan (Daily) IMPRESSION: 1. Cholelithiasis with possible cholecystitis -MRCP negative -HIDA unremarkable 2. Abdominal pain. -improved, now lower abd better with Librax 3. Anemia, acute -will monitor closely -neg FOB 4. Hypercalcemia. 5. Multiple cysts on liver noted on MRCP 6. Diarrhea-resolved 7. Severe migraine headache better with Excedrin 8. Diarrhea secondary to medication Plan Continue librex and pain management Continue current care Patient declined a colonoscopy Pain management Stop MiraLAX and Amitiza Patient declined both EGD and colonoscopy Consultation Date/Type/Reason Admit Date/Time Jul 27, 2018 at 04:55 Initial Consult Date 07/28/18 Requesting Provider: CLARI KRISHNA Date/Time of Note DATE: 08/09/18 TIME: 15:51 24 HR Interval Summary Free Text/Dictation Patient feels better no abdominal pain no migraine headache she wants to go home Exam/Review of Systems Exam Vitals Vital Signs Date Temp Pulse Resp B/P (MAP) Pulse Ox O2 O2 Flow FiO2 Time Delivery Rate 08/09/18 98.0 93 18 119/67 97 Room Air 14:23 (84) Intake and Output 08/08/18 08/08/18 08/09/18 1515:00 23:00 07:00 IntakeIntake Total 860 ml 290 ml 1000 ml BalanceBalance 860 ml 290 ml 1000 ml Constitutional: alert, oriented, well developed Psych: no complaints, nl mood/affect Head: normocephalic, atraumatic Eyes: nl conjunctiva, EOMI, nl lids, nl sclera, PERRL ENMT: nl external ears & nose, nl lips & teeth, nl nasal mucosa & septum Neck: supple, non-tender Respiratory: clear to auscultation, normal air movement Cardiovascular: regular rate and rhythm, nl pulses Gastrointestinal: soft, nl liver, spleen, non-tender Musculoskeletal: nl extremities to inspection, nl gait and stance Extremities: normal pulses Neurological: [employer] II-XII intact, nl mental status, nl speech, nl strength Skin: nl turgor; No rash or lesions Lymph: nl lymph nodes Results Result Diagram: 08/08/185 08/08/18444 Medications Medication Current Medications Morphine Sulfate (morphine) 2 mg Q4H PRN IV SEVERE PAIN LEVEL 7-10 Last administered on 08/06/18 12:47; Admin Dose 2 MG; Start 07/27/18 at 07:00 Ondansetron HCl (Zofran Inj) 4 mg Q6H PRN IV NAUSEA AND/OR VOMITING Last administered on 08/07/18 15:28; Admin Dose 4 MG; Start 07/27/18 at 07:00 Acetaminophen/ Hydrocodone Bitart ([place] (5/325)) 1 tab Q6H PRN PO breakthrough pain Last administered on 08/06/18 10:35; Admin Dose 1 TAB; Start 07/27/18 at 16:00 Docusate Sodium (Colace) 100 mg BID PRN PO CONSTIPATION Last administered on 08/03/18 06:16; Admin Dose 100 MG; Start 07/27/18 at 16:00 Pantoprazole (Protonix Iv) 40 mg BID@06,18 IV Last administered on 08/09/18 05:54; Admin Dose 40 MG; Start 07/29/18 at 18:00 Chlordiazepoxide/ Clidinium (Librax) 1 cap AC MEALS AND BEDTIME PO Last administered on 08/09/18 12:25; Admin Dose 1 CAP; Start 07/31/18 at 11:30 Ibuprofen (Motrin) 400 mg Q6H PRN PO MILD PAIN(1-3) OR TEMP>38C Last administered on 08/09/18 12:25; Admin Dose 400 MG; Start 08/02/18 at 01:00 Olanzapine (Zyprexa) 5 mg QHS PO Last administered on 08/08/18 22:16; Admin Dose 5 MG; Start 08/04/18 at 21:00 Acetaminophen/ Aspirin/Caffeine (Excedrin) 1 tab Q6H PRN PO MIGRAINE Last administered on 08/09/18 08:49; Admin Dose 1 TAB; Start 08/06/18 at 23:00 Polyethylene Glycol (Miralax) 17 gm DAILY PRN PO CONSTIPATION; Start 08/07/18 at 12:30 Cefazolin Sodium 50 ml @ 100 mls/hr Q8 IVPB Last administered on 08/09/18 15:26; Admin Dose 100 MLS/HR; Start 08/07/18 at 22:00 BETH ABBASI MD August 09, 2018 15:52
--- NOTE | 2018-08-09 18:17 | CONS ---
Assessment/Plan Assessment/Plan Hospital Course (Demo Recall) assessment/impression - palpable R breast mass/swelling, R axillary lymphadenopathy. The mass is non- tender and Pt has no skin changes to suggest cellulitis (mastitis). TORRI on 08/04/2018 did not identify mass/fluid collection/abscess - h/o R mastitis, Pt took Bactrim x 7 days in 07/2018 - cholelithiasis without definite e/o acute cholecystitis, choledocholithiasis and cholangitis, clinically improved - COPD - lung CA - CAD revised recommendations - I recommend mammogram as outpatient (it is not available at [facility]) and referral to a breast specialist - I recommend d/c cefazolin (08/07/2018-08/09/2018) and monitor Pt off systemic antibiotic. Pt previously received ceftriaxone (08/03/2018-08/06/2018) and metronidazole (07/27/2018-08/06/2018) management d/w Pt, her RN Albino Consultation Date/Type/Reason Admit Date/Time Jul 27, 2018 at 04:55 Initial Consult Date 08/03/18 Type of Consult ID Requesting Provider: CLARI KRISHNA Date/Time of Note DATE: 08/09/18 TIME: 18:15 24 HR Interval Summary Constitutional: other (not feeling well today) Detailed Summary Eyes: no complaints ENT: no complaints Respiratory: no complaints Cardiovascular: no complaints Gastrointestinal: no complaints Genitourinary: no complaints Musculoskeletal: no complaints Skin: other (+R breast mass, painless) Neurologic: headache; No focal-weakness Exam/Review of Systems Exam Vitals Vital Signs Date Temp Pulse Resp B/P (MAP) Pulse Ox O2 O2 Flow FiO2 Time Delivery Rate 08/09/18 98.0 93 18 119/67 97 Room Air 14:23 (84) Intake and Output 08/08/18 08/08/18 08/09/18 1515:00 23:00 07:00 IntakeIntake Total 860 ml 290 ml 1000 ml BalanceBalance 860 ml 290 ml 1000 ml Constitutional: frail Psych: no complaints, nl mood/affect Head: normocephalic, atraumatic Eyes: nl conjunctiva, nl lids, nl sclera ENMT: nl external ears & nose, nl nasal mucosa & septum, mucosa pink and moist Neck: other (not swollen) Respiratory: clear to auscultation, normal air movement Cardiovascular: regular rate and rhythm, nl pulses; No edema Gastrointestinal: soft, non-tender; No distended Musculoskeletal: nl extremities to inspection Extremities: No edema, No pitting pedal edema Neurological: [employer] II-XII intact, nl mental status, nl speech Skin: nl turgor; No rash or lesions Results Result Diagram: 08/08/1844408/08/18444 Medications Medication Current Medications Morphine Sulfate (morphine) 2 mg Q4H PRN IV SEVERE PAIN LEVEL 7-10 Last administered on 08/06/18 12:47; Admin Dose 2 MG; Start 07/27/18 at 07:00 Ondansetron HCl (Zofran Inj) 4 mg Q6H PRN IV NAUSEA AND/OR VOMITING Last administered on 08/07/18 15:28; Admin Dose 4 MG; Start 07/27/18 at 07:00 Acetaminophen/ Hydrocodone Bitart ([place] (5/325)) 1 tab Q6H PRN PO breakthrough pain Last administered on 08/06/18 10:35; Admin Dose 1 TAB; Start 07/27/18 at 16:00 Docusate Sodium (Colace) 100 mg BID PRN PO CONSTIPATION Last administered on 08/03/18 06:16; Admin Dose 100 MG; Start 07/27/18 at 16:00 Pantoprazole (Protonix Iv) 40 mg BID@06,18 IV Last administered on 08/09/18 05:54; Admin Dose 40 MG; Start 07/29/18 at 18:00 Chlordiazepoxide/ Clidinium (Librax) 1 cap AC MEALS AND BEDTIME PO Last administered on 08/09/18 12:25; Admin Dose 1 CAP; Start 07/31/18 at 11:30 Ibuprofen (Motrin) 400 mg Q6H PRN PO MILD PAIN(1-3) OR TEMP>38C Last administered on 08/09/18 12:25; Admin Dose 400 MG; Start 08/02/18 at 01:00 Olanzapine (Zyprexa) 5 mg QHS PO Last administered on 08/08/18 22:16; Admin Dose 5 MG; Start 08/04/18 at 21:00 Acetaminophen/ Aspirin/Caffeine (Excedrin) 1 tab Q6H PRN PO MIGRAINE Last administered on 5/5/19at 16:27; Admin Dose 1 TAB; Start 08/06/18 at 23:00 Polyethylene Glycol (Miralax) 17 gm DAILY PRN PO CONSTIPATION; Start 08/07/18 at 12:30 Cefazolin Sodium 50 ml @ 100 mls/hr Q8 IVPB Last administered on 08/09/18at 15:26; Admin Dose 100 MLS/HR; Start 08/07/18 at 22:00 DAKOTA MCCLAIN M.D. August 09, 2018 18:17
[2018-08-09 20:00] VITALS: BP 133/65; PULSE 101; RESP 18
[2018-08-09] MEDS: OLANZAPINE 5 MG TAB PO SCH (20:00)
[2018-08-10 02:00] VITALS: BP 117/72; PULSE 85; RESP 17
[2018-08-10] MEDS: IBUPROFEN 400 MG TAB PO PRN ×2 (05:16→14:16)
[2018-08-10] MEDS: PANTOPRAZOLE 40 MG INJ IV SCH ×2 (05:16→17:21)
[2018-08-10 08:00] VITALS: BP 118/75; PULSE 86; RESP 18
[2018-08-10] MEDS: CHLORDIAZEPOXIDE/CLIDINIUM CAP PO SCH ×4 (09:45→20:19)
[2018-08-10] MEDS: ASA/ACETAMINOPHEN/CAFF TAB PO PRN ×2 (09:48→20:19)
--- NOTE | 2018-08-10 11:14 | PN ---
Date/Time of Note Date/Time of Note DATE: 08/10/18 TIME: 11:12 Assessment/Plan Lines/Catheters IV Catheter Type (from [facility]): Saline Lock [facility] in Place (from [facility]): No Assessment/Plan Chief Complaint/Hosp Course . Abdominal pain ? etiology. Non surgical at this time (doubt gallbladder): resolved;refusing colonoscopy/EGD -GI f/u -PPI, antispasmodics -Pain management as needed 2. Cholelithiasis: HIDA negative; MRCP noted without choledocholithiasis or cholecystitis -No emergent surgical intervention necessary at this time > may consider cholecystectomy at some point if not improving -ok for dc from surgical standpoint 3. Hypochromic anemia: -Monitor and transfuse as needed 4. Breast pain: us noted -discussed biopsy w pt, currently refusing -mammogram as outpatient and f/u w pcp 5. Intractable headaches: much improved -Medical management -per neuro 6. Polyuria: incomplete bladder emptying -outpatient urology fu Thank you, Subjective 24 Hr Interval Summary Refused colonoscopy and EGD. No current abdominal pain. Headaches improved. + Bowel function. No fevers, chills, sob, congested cough, cp, palpitations, penaloza, dizziness, nausea, vomiting, diarrhea, dysuria. Exam/Review of Systems Vital Signs Vitals Vital Signs Date Temp Pulse Resp B/P (MAP) Pulse Ox O2 O2 Flow FiO2 Time Delivery Rate 08/10/18 98.2 86 18 118/75 99 Room Air 08:00 (89) Intake and Output 08/09/18 08/09/18 08/10/18 1515:00 23:00 07:00 IntakeIntake Total 480 ml 550 ml 480 ml BalanceBalance 480 ml 550 ml 480 ml Exam Free Text/Dictation Constitutional: alert, oriented Psych: anxiety Head: normocephalic, atraumatic Eyes: nl conjunctiva, EOMI, nl lids, nl sclera ENMT: nl external ears & nose, nl lips & teeth, mucosa pink and moist Neck: supple, non-tender; No jvd Chest: right breast mobile mass noted; no nipple drainage/tenderness Respiratory: normal air movement; No congested cough Cardiovascular: regular rate and rhythm, nl pulses; No edema Gastrointestinal: soft, min tender in lower quadrants without rebound/guarding/rigidity; ND Genitourinary - Female: nl external genitalia Musculoskeletal: nl extremities to inspection; No joint tenderness, No muscle weakness Extremities: normal pulses; No edema Neurological: nl mental status, nl speech, nl strength Skin: nl turgor; No rash or lesions Lymph: nl lymph nodes Results Result Diagram: 08/08/18 0445 08/08/18 0445 ROM MCALLISTER MD August 10, 2018 11:14
--- NOTE | 2018-08-10 12:42 | CONS ---
Assessment/Plan Assessment/Plan Hospital Course (Demo Recall) assessment/impression - palpable R breast mass/swelling, R axillary lymphadenopathy. The mass is non- tender and Pt has no skin changes to suggest cellulitis (mastitis). TORRI on 08/04/2018 did not identify mass/fluid collection/abscess - h/o R mastitis, Pt took Bactrim x 7 days in 07/2018 - cholelithiasis without definite e/o acute cholecystitis, choledocholithiasis and cholangitis, clinically improved - COPD - lung CA - CAD Recommendations: - We recommend mammogram as outpatient (it is not available at [facility]) and referral to a breast specialist - Monitor pt off systemic antibiotics; s/p[ (08/07/2018-08/09/2018), Pt previously received ceftriaxone (08/03/2018-08/06/2018) and metronidazole (07/27/2018-08/06/2018) management d/w patient and with Dr. Dang. Thank you Consultation Date/Type/Reason Admit Date/Time Jul 27, 2018 at 04:55 Initial Consult Date 08/03/18 Type of Consult ID Requesting Provider: CLARI KRISHNA Date/Time of Note DATE: 08/10/18 TIME: 12:41 24 HR Interval Summary Free Text/Dictation The patient states that she is feeling "much better" since admission, states "I hope I get to go home soon." Says she was told she might go home today or early tomorrow. Afebrile, wbc 4.3 today. No acute issues were reported by nursing. Detailed Summary Eyes: no complaints ENT: no complaints Respiratory: no complaints, shortness of breath (baseline); No cough, No sputum, No wheezing Cardiovascular: no complaints; No chest pain, No lightheadedness, No palpitations Gastrointestinal: no complaints, other (states no longer having abdominal pain. ); No decreased appetite, No diarrhea, No nausea, No vomiting Genitourinary: no complaints; No dysuria, No hematuria Musculoskeletal: no complaints Skin: other (Right breast mass. States "I'm scared about it" ) Neurologic: no complaints Lymphatic: no complaints Psychological: no complaints, nl mood/affect, anxiety (regarding the breast mass ) Exam/Review of Systems Exam Vitals Vital Signs Date Temp Pulse Resp B/P (MAP) Pulse Ox O2 O2 Flow FiO2 Time Delivery Rate 5/6/19 98.2 86 18 118/75 99 Room Air 08:00 (89) Intake and Output 08/09/18 08/09/18 08/10/18 1515:00 23:00 07:00 IntakeIntake Total 480 ml 550 ml 480 ml BalanceBalance 480 ml 550 ml 480 ml Allergies Coded Allergies No Known Drug Allergy (Unverified Allergy, Unknown, 07/18/18) Constitutional: alert, oriented, well developed, other (sitting at the side of the bed ) Psych: no complaints, nl mood/affect, anxiety (re: right breast mass, became tearful talking about it. ) Head: normocephalic, atraumatic Eyes: nl conjunctiva, nl lids, nl sclera ENMT: nl external ears & nose, nl nasal mucosa & septum, mucosa pink and moist (no thrush.) Neck: supple, non-tender Respiratory: clear to auscultation, normal air movement Cardiovascular: regular rate and rhythm, nl pulses Gastrointestinal: soft, non-tender, bowel sounds (normoactive ) Genitourinary - Female: other (bladder flat) Musculoskeletal: nl extremities to inspection Extremities: normal pulses Neurological: [employer] II-XII intact, nl mental status, nl speech, nl strength Skin: nl turgor, other (Right breast mass, firm, nontender to palpation. ); No rash or lesions Lymph: nl lymph nodes Results Result Diagram: 08/08/1844408/08/18444 Medications Medication Current Medications Morphine Sulfate (morphine) 2 mg Q4H PRN IV SEVERE PAIN LEVEL 7-10 Last administered on 08/06/18 12:47; Admin Dose 2 MG; Start 07/27/18 at 07:00 Ondansetron HCl (Zofran Inj) 4 mg Q6H PRN IV NAUSEA AND/OR VOMITING Last administered on 08/07/18 15:28; Admin Dose 4 MG; Start 07/27/18 at 07:00 Acetaminophen/ Hydrocodone Bitart ([place] (5/325)) 1 tab Q6H PRN PO breakthrough pain Last administered on 08/06/18 10:35; Admin Dose 1 TAB; Start 07/27/18 at 16:00 Docusate Sodium (Colace) 100 mg BID PRN PO CONSTIPATION Last administered on 4/29/19at 06:16; Admin Dose 100 MG; Start 07/27/18 at 16:00 Pantoprazole (Protonix Iv) 40 mg BID@06,18 IV Last administered on 08/10/18 05:16; Admin Dose 40 MG; Start 07/29/18 at 18:00 Chlordiazepoxide/ Clidinium (Librax) 1 cap AC MEALS AND BEDTIME PO Last administered on 08/10/18 09:45; Admin Dose 1 CAP; Start 07/31/18 at 11:30 Ibuprofen (Motrin) 400 mg Q6H PRN PO MILD PAIN(1-3) OR TEMP>38C Last administered on 08/10/18 05:16; Admin Dose 400 MG; Start 08/02/18 at 01:00 Olanzapine (Zyprexa) 5 mg QHS PO Last administered on 08/09/18 20:00; Admin Dose 5 MG; Start 08/04/18 at 21:00 Acetaminophen/ Aspirin/Caffeine (Excedrin) 1 tab Q6H PRN PO MIGRAINE Last administered on 08/10/18 09:48; Admin Dose 1 TAB; Start 08/06/18 at 23:00 Polyethylene Glycol (Miralax) 17 gm DAILY PRN PO CONSTIPATION; Start 08/07/18 at 12:30 NHUNG ENRIQUEZ NP August 10, 2018 12:42
[2018-08-10 14:00] VITALS: BP 132/77; PULSE 90; RESP 17
--- NOTE | 2018-08-10 16:02 | CONS ---
Assessment/Plan Assessment/Plan Assessment/Plan (Daily) Assessment/Plan Assessment/Plan (Daily) IMPRESSION: 1. Cholelithiasis with possible cholecystitis -MRCP negative -HIDA unremarkable 2. Abdominal pain. -improved, now lower abd better with Librax 3. Anemia, acute -will monitor closely -neg FOB 4. Hypercalcemia. 5. Multiple cysts on liver noted on MRCP 6. Diarrhea-resolved 7. Severe migraine headache better with Excedrin 8. Diarrhea secondary to medication improved Plan Continue librex and pain management Continue current care Consultation Date/Type/Reason Admit Date/Time Jul 27, 2018 at 04:55 Initial Consult Date 07/28/18 Requesting Provider: CLARI KRISHNA Date/Time of Note DATE: 08/10/18 TIME: 16:01 24 HR Interval Summary Free Text/Dictation Patient's abdominal pain is minimal Headache also is minimal Constitutional: improved Exam/Review of Systems Exam Vitals Vital Signs Date Temp Pulse Resp B/P (MAP) Pulse Ox O2 O2 Flow FiO2 Time Delivery Rate 08/10/18 98.7 90 17 132/77 100 Room Air 14:00 (95) Intake and Output 08/09/18 08/09/18 08/10/18 1414:59 22:59 06:59 IntakeIntake Total 480 ml 550 ml 480 ml BalanceBalance 480 ml 550 ml 480 ml Constitutional: alert, oriented, well developed Psych: no complaints, nl mood/affect Head: normocephalic, atraumatic Eyes: nl conjunctiva, EOMI, nl lids, nl sclera, PERRL ENMT: nl external ears & nose, nl lips & teeth, nl nasal mucosa & septum Neck: supple, non-tender Respiratory: clear to auscultation, normal air movement Cardiovascular: regular rate and rhythm, nl pulses Gastrointestinal: soft, nl liver, spleen, non-tender Musculoskeletal: nl extremities to inspection, nl gait and stance Extremities: normal pulses Neurological: IMPROVEMENT AUDITOR II-XII intact, nl mental status, nl speech, nl strength Skin: nl turgor; No rash or lesions Lymph: nl lymph nodes Results Result Diagram: 08/08/18 0445 08/08/185 Medications Medication Current Medications Morphine Sulfate (morphine) 2 mg Q4H PRN IV SEVERE PAIN LEVEL 7-10 Last administered on 08/06/18at 12:47; Admin Dose 2 MG; Start 07/27/18 at 07:00 Ondansetron HCl (Zofran Inj) 4 mg Q6H PRN IV NAUSEA AND/OR VOMITING Last administered on 08/07/18 15:28; Admin Dose 4 MG; Start 07/27/18 at 07:00 Acetaminophen/ Hydrocodone Bitart ([place] (5/325)) 1 tab Q6H PRN PO breakthrough pain Last administered on 08/06/18 10:35; Admin Dose 1 TAB; Start 07/27/18 at 16:00 Docusate Sodium (Colace) 100 mg BID PRN PO CONSTIPATION Last administered on 08/03/18 06:16; Admin Dose 100 MG; Start 07/27/18 at 16:00 Pantoprazole (Protonix Iv) 40 mg BID@06,18 IV Last administered on 08/10/18 05:16; Admin Dose 40 MG; Start 07/29/18 at 18:00 Chlordiazepoxide/ Clidinium (Librax) 1 cap AC MEALS AND BEDTIME PO Last administered on 08/10/18 12:47; Admin Dose 1 CAP; Start 07/31/18 at 11:30 Ibuprofen (Motrin) 400 mg Q6H PRN PO MILD PAIN(1-3) OR TEMP>38C Last administered on 08/10/18 14:16; Admin Dose 400 MG; Start 08/02/18 at 01:00 Olanzapine (Zyprexa) 5 mg QHS PO Last administered on 08/09/18 20:00; Admin Dose 5 MG; Start 08/04/18 at 21:00 Acetaminophen/ Aspirin/Caffeine (Excedrin) 1 tab Q6H PRN PO MIGRAINE Last administered on 08/10/18 09:48; Admin Dose 1 TAB; Start 08/06/18 at 23:00 Polyethylene Glycol (Miralax) 17 gm DAILY PRN PO CONSTIPATION; Start 08/07/18 at 12:30 BETH ABBASI MD August 10, 2018 16:02
--- NOTE | 2018-08-10 16:15 | CONS ---
Assessment/Plan Assessment/Plan Hospital Course 68 yo F with hx of lung CA and multiple other comorbidities who presents for evaluation of abdominal pain. On 08/06, she was noted to have a severe intractable headache... for which neurology is consulted. The clinical picture is consistent with a nonspecific headache in the context of pain medication overuse and systemic illness. A focal COIN PURSE FRAMER process is unlikely. CTH is reassuringly without acute intracranial pathology. P: Ok to defer MRI brain for now Agree with NSAIDs PRN pain Cont medical management per primary Will follow clinically, to recommend neurologic studies, as necessary Consultation Date/Type/Reason Admit Date/Time Jul 27, 2018 at 04:55 Type of Consult Neurology Reason for Consultation headache Requesting Provider: CLARI KRISHNA Date/Time of Note DATE: 08/10/18 TIME: 16:15 24 HR Interval Summary Free Text/Dictation Continues acute care. Pt denies headache at this time. Exam Vital Signs Vitals Vital Signs Date Temp Pulse Resp B/P (MAP) Pulse Ox O2 O2 Flow FiO2 Time Delivery Rate 08/10/18 98.7 90 17 132/77 100 Room Air 14:00 (95) Intake and Output 08/09/18 08/09/18 08/10/18 1515:00 23:00 07:00 IntakeIntake Total 480 ml 550 ml 480 ml BalanceBalance 480 ml 550 ml 480 ml Exam PE: Gen Appearance: No Apparent Distress HEENT: Normocephalic Cardiovascular: Regular rate Lungs: Clear bilaterally Abdomen: Soft Extremities: Dry NE: The patient was alert and oriented. Language was normal. Fund of knowledge was normal. Pupils were equal and reactive to light. There was no afferent pupillary defect. Visual gibbons were normal. Funduscopic examination was limited. Extra-ocular movements were full. Ptosis was absent. There was no nystagmus. Facial sensation was normal. Face was symmetric with normal strength. Hearing was intact. Palate movements were normal. Neck strength was normal. There was normal tongue bulk and speed of movement. Tone was normal. Muscle bulk was normal. I did not see fasciculations. Arms and legs were strong. Vibration sensation was normal. Temperature and pinprick sensation was normal. Rapid alternating movements were normal. There was no dysmetria. There was no intention tremor. Gait was deferred due to bedrest. Arm and leg reflexes were 2+ and symmetric. Castanon's sign was absent. Plantar responses were flexor. ANGI MANZO NP August 10, 2018 16:15
[2018-08-10 20:00] VITALS: BP 141/77; PULSE 90; RESP 18
[2018-08-10] MEDS: OLANZAPINE 5 MG TAB PO SCH (20:19)
--- NOTE | 2018-08-10 21:48 | PN ---
Date/Time of Note Date/Time of Note DATE: 08/10/18 TIME: 21:41 Assessment/Plan VTE Prophylaxis Risk score (from Nsg)>0 risk: 5 SCD applied (from Nsg): Yes Pharmacological prophylaxis: other Lines/Catheters IV Catheter Type (from Nrsg): Saline Lock Urinary Cath still in place: No Assessment/Plan Hospital Course Patient stated that she feels better able to tolerate food, she is continues to improve anticipate discharge home tomorrow, case management to arrange for mammogram as an outpatient. Patient's condition and plan of care discussed with patient and RN. Assessment/Plan -Abdominal pain, resolved. Pt refusing colonoscopy/EGD. Dr Velasco is following in GI consultation. Continue PPI and Librex. -Cholelithiasis: HIDA negative; MRCP noted without choledocholithiasis or cholecystitis. Dr. Portillo is following in general surgery consultation. Surgical interventions necessary at this time patient may consider cholecystectomy in the future if symptoms do not improve. -Hypochromic anemia, monitor, transfuse as needed -Right breast mass/swelling and breast pain, Hx of mastitis, status post treatment with with Bactrim, right breast ultrasound with no sonographic evidence of malignancy. No interval change. No abscess, fluid collection, or hematoma. Patient refused biopsy. mammogram as an outpatient. - COPD - lung CA - CAD Further recommendations based on clinical course. Plan of care discussed with Dr. Recinos. Result Diagram: 08/08/1844408/08/18444 Exam/Review of Systems Exam Vitals Vital Signs Date Temp Pulse Resp B/P (MAP) Pulse Ox O2 O2 Flow FiO2 Time Delivery Rate 08/10/18 98.7 90 17 132/77 100 Room Air 14:00 (95) Intake and Output 08/09/18 08/09/18 08/10/18 1515:00 23:00 07:00 IntakeIntake Total 480 ml 550 ml 480 ml BalanceBalance 480 ml 550 ml 480 ml Constitutional: alert, oriented Neck: supple Respiratory: clear to auscultation Cardiovascular: nl pulses Gastrointestinal: soft, non-tender Extremities: normal pulses Medications Medication Current Medications Morphine Sulfate (morphine) 2 mg Q4H PRN IV SEVERE PAIN LEVEL 7-10 Last admini stered on 08/06/18at 12:47; Admin Dose 2 MG; Start 07/27/18 at 07:00 Ondansetron HCl (Zofran Inj) 4 mg Q6H PRN IV NAUSEA AND/OR VOMITING Last administered on 08/07/18 15:28; Admin Dose 4 MG; Start 07/27/18 at 07:00 Acetaminophen/ Hydrocodone Bitart ([place] (5/325)) 1 tab Q6H PRN PO breakthrough pain Last administered on 08/06/18 10:35; Admin Dose 1 TAB; Start 07/27/18 at 16:00 Docusate Sodium (Colace) 100 mg BID PRN PO CONSTIPATION Last administered on 08/03/18 06:16; Admin Dose 100 MG; Start 07/27/18 at 16:00 Pantoprazole (Protonix Iv) 40 mg BID@06,18 IV Last administered on 08/10/18 17:21; Admin Dose 40 MG; Start 07/29/18 at 18:00 Chlordiazepoxide/ Clidinium (Librax) 1 cap AC MEALS AND BEDTIME PO Last administered on 08/10/18 20:19; Admin Dose 1 CAP; Start 07/31/18 at 11:30 Ibuprofen (Motrin) 400 mg Q6H PRN PO MILD PAIN(1-3) OR TEMP>38C Last administered on 08/10/18 14:16; Admin Dose 400 MG; Start 08/02/18 at 01:00 Olanzapine (Zyprexa) 5 mg QHS PO Last administered on 08/10/18 20:19; Admin Dose 5 MG; Start 08/04/18 at 21:00 Acetaminophen/ Aspirin/Caffeine (Excedrin) 1 tab Q6H PRN PO MIGRAINE Last administered on 08/10/18 20:19; Admin Dose 1 TAB; Start 08/06/18 at 23:00 Polyethylene Glycol (Miralax) 17 gm DAILY PRN PO CONSTIPATION; Start 08/07/18 at 12:30 RAVINDER BARRON August 10, 2018 21:48
[2018-08-11 02:00] VITALS: BP 108/63; PULSE 90; RESP 18
[2018-08-11] MEDS: ASA/ACETAMINOPHEN/CAFF TAB PO PRN ×2 (02:19→14:32)
[2018-08-11] MEDS: PANTOPRAZOLE 40 MG INJ IV SCH (05:59)
[2018-08-11] MEDS: IBUPROFEN 400 MG TAB PO PRN (06:02)
[2018-08-11 08:00] VITALS: BP 107/64; PULSE 83; RESP 18
[2018-08-11] MEDS: CHLORDIAZEPOXIDE/CLIDINIUM CAP PO SCH ×3 (08:33→17:28)
--- NOTE | 2018-08-11 09:50 | PN ---
Date/Time of Note Date/Time of Note DATE: 08/11/18 TIME: 09:48 Assessment/Plan Lines/Catheters IV [facility]ter Type (from [facility]): Saline Lock Cruz in Place (from Nrs): No Assessment/Plan Chief Complaint/Hosp Course 1. Abdominal pain ? etiology. Non surgical at this time (doubt gallbladder): resolved;refusing colonoscopy/EGD -GI f/u -PPI, antispasmodics -Pain management as needed 2. Cholelithiasis: HIDA negative; MRCP noted without choledocholithiasis or cholecystitis -No emergent surgical intervention necessary at this time > may consider cholecystectomy at some point if not improving -ok for dc from surgical standpoint 3. Hypochromic anemia: -Monitor and transfuse as needed 4. Breast pain: us noted -discussed biopsy w pt, currently refusing -mammogram as outpatient and f/u w pcp 5. Intractable headaches: much improved -Medical management -per neuro 6. Polyuria: incomplete bladder emptying -outpatient urology fu Thank you. Patient seen and examined in collaboration with Dr. Rosalino Portillo. Subjective 24 Hr Interval Summary Continuing to improve. + Bowel function. No fevers, chills, sob, congested cough, cp, palpitations, penaloza, dizziness, nausea, vomiting, diarrhea, dysuria. No acute pain at present. Exam/Review of Systems Vital Signs Vitals Vital Signs Date Temp Pulse Resp B/P (MAP) Pulse Ox O2 O2 Flow FiO2 Time Delivery Rate 08/11/18 98.0 83 18 107/64 97 08:00 (78) 08/10/18 Room Air 14:00 Intake and Output 08/10/18 08/10/18 08/11/18 1515:00 23:00 07:00 IntakeIntake Total 800 ml 500 ml BalanceBalance 800 ml 500 ml Exam Free Text/Dictation Constitutional: alert, oriented Psych: anxiety Head: normocephalic, atraumatic Eyes: nl conjunctiva, EOMI, nl lids, nl sclera ENMT: nl external ears & nose, nl lips & teeth, mucosa pink and moist Neck: supple, non-tender; No jvd Chest: right breast mobile mass noted; no nipple drainage/tenderness Respiratory: normal air movement; No congested cough Cardiovascular: regular rate and rhythm, nl pulses; No edema Gastrointestinal: soft, min tender in lower quadrants without rebound/guarding/rigidity; ND Genitourinary - Female: nl external genitalia Musculoskeletal: nl extremities to inspection; No joint tenderness, No muscle weakness Extremities: normal pulses; No edema Neurological: nl mental status, nl speech, nl strength Skin: nl turgor; No rash or lesions Lymph: nl lymph nodes Results Result Diagram: 08/11/18 0832 08/11/18 0832 ROC MANNING NP August 11, 2018 09:50
[2018-08-11 14:00] VITALS: BP 129/76; PULSE 76; RESP 18
[2018-08-11] MEDS ORDERED: PANT40TA3 PO (15:21)
[2018-08-11] MEDS ORDERED: EXCED PO (15:21)
[2018-08-11] MEDS ORDERED: CHLO1CAP57 PO (15:21)
--- NOTE | 2018-08-11 16:23 | CONS ---
Assessment/Plan Assessment/Plan Hospital Course 68 yo F with hx of lung CA and multiple other comorbidities who presents for evaluation of abdominal pain. On 08/06, she was noted to have a severe intractable headache... for which neurology is consulted. The clinical picture is consistent with a nonspecific headache in the context of pain medication overuse and systemic illness. A focal STOCKROOM SELECTOR process is unlikely. CTH is reassuringly without acute intracranial pathology. P: Ok to defer MRI brain for now Agree with NSAIDs PRN pain Cont medical management per primary Will sign off for now; Please call w/ ?s Consultation Date/Type/Reason Admit Date/Time Jul 27, 2018 at 04:55 Type of Consult Neurology Reason for Consultation headache Requesting Provider: CLARI KRISHNA Date/Time of Note DATE: 08/11/18 TIME: 16:23 24 HR Interval Summary Free Text/Dictation Continues acute care. Pt denies headache at this time. Awaiting discharge home. Exam Vital Signs Vitals Vital Signs Date Temp Pulse Resp B/P (MAP) Pulse Ox O2 O2 Flow FiO2 Time Delivery Rate 08/11/18 98.1 76 18 129/76 95 Room Air 14:00 (93) Intake and Output 08/10/18 08/10/18 08/11/18 1414:59 22:59 06:59 IntakeIntake Total 800 ml 500 ml BalanceBalance 800 ml 500 ml Exam PE: Gen Appearance: No Apparent Distress HEENT: Normocephalic Cardiovascular: Regular rate Lungs: Clear bilaterally Abdomen: Soft Extremities: Dry NE: The patient was alert and oriented. Language was normal. Fund of knowledge was normal. Pupils were equal and reactive to light. There was no afferent pupillary defect. Visual gibbons were normal. Funduscopic examination was limited. Extra-ocular movements were full. Ptosis was absent. There was no nystagmus. Facial sensation was normal. Face was symmetric with normal strength. Hearing was intact. Palate movements were normal. Neck strength was normal. There was normal tongue bulk and speed of movement. Tone was normal. Muscle bulk was normal. I did not see fasciculations. Arms and legs were strong. Vibration sensation was normal. Temperature and pinprick sensation was normal. Rapid alternating movements were normal. There was no dysmetria. There was no intention tremor. Gait was deferred due to bedrest. Arm and leg reflexes were 2+ and symmetric. Castanon's sign was absent. Plantar responses were flexor. ANGI MANZO NP August 11, 2018 16:23 CHETNA NOEL August 11, 2018 17:35
--- NOTE | 2018-08-11 20:53 | DS ---
Date/Time of Note Date/Time of Note DATE: 08/11/18 TIME: 20:50 Discharge Summary Admission/Discharge Info Admit Date/Time Jul 27, 2018 at 04:55 Discharge Date/Time August 11, 2018 at 17:30 Patient Condition: Stable Hx of Present Illness The patient is 68-year-old female with history of lung cancer and emphysema presented to the emergency room with complaints of significant abdominal pain. CT of the abdomen with evidence of cholecystitis. Patient is being admitted for further evaluation and management. Hospital Course Assessment/Plan -Abdominal pain, resolved. Pt refusing colonoscopy/EGD. Patient stated that she will follow-up with Dr. Reyes her GI doctor as an outpatient for EGD and colonoscopy in couple of weeks. Patient tolerates diet well, denies any nausea and vomiting. Dr Velasco is following in GI consultation. Continue PPI and Juanita x. -Cholelithiasis: HIDA negative; MRCP noted without choledocholithiasis or cholecystitis. Dr. Portillo is following in general surgery consultation. Surgical interventions necessary at this time patient may consider cholecystectomy in the future if symptoms do not improve. -Hypochromic anemia, monitor, transfuse as needed -Right breast mass/swelling and breast pain, Hx of mastitis, status post treatment with with Bactrim, right breast ultrasound with no sonographic evidence of malignancy. No interval change. No abscess, fluid collection, or hematoma. Patient refused biopsy. mammogram as an outpatient. - COPD - lung CA - CAD Plan of care discussed with Dr. Recinos. Home Meds Active Scripts Pantoprazole* (Protonix*) 40 Mg Tablet., 40 MG PO DAILY for 30 Days, TAB Prov:RAVINDER BARRON 08/11/18 Chlordiazepoxide/Clidinium Br (Chlordiazepoxide-Clidinium Cap) 1 Each Capsule, 1 CAP PO AC MEALS AND BEDTIME for 14 Days, CAP Prov:RAVINDER BARRON 08/11/18 Acetaminophen/Aspirin/Caffeine* (Excedrin*) 1 Tab Tab, 1 TAB PO Q6H PRN for MIGRAINE, #30 TAB Prov:RAVINDER BARRON 08/11/18 Ondansetron (Ondansetron Odt) 4 Mg Tab.rapdis, 4 MG PO Q6H PRN for NAUSEA AND/OR VOMITING, #10 TAB Prov:CHAITANYA EDGAR MD 05/16/17 Reported Medications Salmeterol Xinafoate (Serevent Diskus) 50 Mcg Blst.w.dev, 5 MCG INH BID 10/24/16 Tiotropium [place]* (Spiriva*) 18 Mcg Cap.w.dev, 1 CAP INHALATION DAILY, #30 CAP 10/24/16 Nortriptyline Hcl* (Nortriptyline Hcl*) 25 Mg Capsule, 25 MG PO HS, CAP 10/24/16 Trifluoperazine Hcl (Trifluoperazine Hcl) 10 Mg Tablet, 20 MG PO QHS, TAB 10/24/16 Discontinued Reported Medications Lorazepam* (Lorazepam*) 1 Mg Tablet, 1 MG PO QAM PRN for ANXIETY, #30 TAB 10/24/16 Diltiazem Hcl (Diltiazem) 120 Mg Capsr, 120 MG PO DAILY 03/29/12 Discontinued Scripts Ibuprofen* (Ibuprofen*) 600 Mg Tablet, 600 MG PO Q6H PRN for PAIN, #30 TAB Prov:ONIEL PRIETO 07/18/18 Sulfamethoxazole/Trimethoprim* (Bactrim Ds* Tablet) 1 Each Tablet, 1 TAB PO BID, #14 TAB Prov:ONIEL PRIETO 07/18/18 Guaifenesin-Codeine Phosphate* (Guaifenesin* AC Cough Syrup) 473 Ml Liquid, 5 ML PO BID PRN for COUGH, #60 ML Prov:ALEJANDRA DICKSON MD 03/11/18 Prednisone* (Prednisone*) 20 Mg Tab, 60 MG PO DAILY for 5 Days, TAB Prov:ALEJANDRA DICKSON MD 03/11/18 Amoxicillin* (Amoxicillin*) 500 Mg Cap, 500 MG PO TID for 7 Days, CAP Prov:PASILABANSUJITAR F 07/19/17 Hydrocodone/Acetaminophen ([place] 5-325 Tablet) 1 Each Tablet, 1 TAB PO Q6H PRN for SEVERE PAIN LEVEL 7-10, #20 TAB Prov:YODIT CARDOSO NP 06/09/17 Ibuprofen* (Motrin*) 400 Mg Tab, 400 MG PO Q6H PRN for PAIN AND OR ELEVATED TEMP, #30 TAB Prov:YODIT CARDOSO NP 3/5/18 Hydrocodone/Acetaminophen ([place] 10-325 Tablet) 1 Each Tablet, 1 TAB PO Q6H PRN for PAIN, #7 TAB Prov:CHAITANYA EDGAR MD 05/16/17 Follow-up Plan 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 Ann-Marie Olvera in 2 weeks, patient given prescription for mammogram, and follow-up with PMD for mammogram. Primary Care Provider [facility] [[email or web address] Time spent on discharge: > 30 minutes Pending Labs Laboratory Tests Test 08/11/18 08:32 White Blood Count 4.2 10^3/ul (4.8-10.8) Red Blood Count 3.82 10^6/ul (4.20-5.40) Hemoglobin 11.3 g/dl (12.0-16.0) Hematocrit 35.3 % (37.0-47.0) Mean Corpuscular Volume 92.4 fl (82.0-101.0) Mean Corpuscular Hemoglobin 29.6 pg (29.0-33.0) Mean Corpuscular Hemoglobin Concent 32.0 g/dl (32.0-37.0) Red Cell Distribution Width 15.6 % (11.5-14.5) Platelet Count 294 10^3/UL (140-415) Mean Platelet Volume 10.0 fl (7.4-10.4) Immature Granulocytes % 0.500 % (0.001-0.429) Neutrophils % 51.7 % (39.0-77.0) Lymphocytes % 24.6 % (15.0-51.0) Monocytes % 17.5 % (0.0-11.0) Eosinophils % 5.2 % (0.0-7.0) Basophils % 0.5 % (0.0-2.0) Nucleated Red Blood Cells % 0.0 /100WBC (0.0-0.0) Immature Granulocytes # 0.020 10^3/ul (0.0-0.031) Neutrophils # 2.2 10^3/ul (1.6-7.5) Lymphocytes # 1.0 10^3/ul (0.8-2.9) Monocytes # 0.7 10^3/ul (0.3-0.9) Eosinophils # 0.2 10^3/ul (0.0-0.5) Basophils # 0.0 10^3/ul (0.0-0.1) Nucleated Red Blood Cells # 0.0 10^3/ul (0.0-0.0) Sodium Level 142 mmol/L (135-144) Potassium Level 4.8 mmol/L (3.5-5.1) Chloride Level 104 mmol/L (97-110) Carbon Dioxide Level 30 mmol/L (21-31) Anion Gap 8 (5-13) Blood Urea Nitrogen 18 mg/dl (7-20) Creatinine 1.00 mg/dl (0.44-1.00) Est Glomerular Filtrat Rate mL/min > 60 mL/min (>60) Glucose Level 75 mg/dl (70-220) Calcium Level 9.7 mg/dl (8.4-10.2) Total Bilirubin 0.2 mg/dl (0.2-1.3) Direct Bilirubin 0.00 mg/dl (0.00-0.20) Indirect Bilirubin 0.2 mg/dl (0-1.1) Aspartate Amino Transf (AST/SGOT) 36 IU/L (15-46) Alanine Aminotransferase (ALT/SGPT) 21 IU/L (13-69) Alkaline Phosphatase 63 IU/L (42-121) Total Protein 7.4 g/dl (6.1-8.1) Albumin 3.9 g/dl (3.3-4.9) Globulin 3.50 g/dl (1.3-3.2) Albumin/Globulin Ratio 1.11 RAVINDER BARRON August 11, 2018 20:53
== END 2018-08-11 17:30 | disposition home or self-care (01) | DRG 445 ==
LOC: E/R 18:28 → PP2 07-27 04:55
PROVIDERS: ADMIT Internal Medicine; ATTEND Internal Medicine
DX: K80.20 Calculus of gallbladder without cholecystitis without obstruction (principal); E87.1 Hypo-osmolality and hyponatremia; Z68.1 Body mass index [BMI] 19.9 or less, adult; R19.7 Diarrhea, unspecified; J44.9 Chronic obstructive pulmonary disease, unspecified; I25.10 Atherosclerotic heart disease of native coronary artery without angina pectoris; D64.9 Anemia, unspecified; E87.5 Hyperkalemia; K76.89 Other specified diseases of liver; F20.9 Schizophrenia, unspecified; R51 Headache; R35.8 Other polyuria; Z85.118 Personal history of other malignant neoplasm of bronchus and lung; N64.4 Mastodynia; D50.9 Iron deficiency anemia, unspecified
CPT/HCPCS: 36415; 70450; 74176; 74181; 76642; 76856; 78226; 80048; 80053; 81001; 82270; 82378; 83690; 85025; 85610; 85730; 87086; 96372; 96374; 96375; 96376; A9537; C9113; J0500; J0690; J0696; J1170; J2270; J2405; J7030

== ENCOUNTER 2018-12-03 11:53 | Emergency (ER) | payer MEDICARE, OTHER ==
[~2018-12-03] VITALS: Ht 167.6 cm; Wt 54.4 kg
[~2018-12-03 11:53] MED LIST changes: -AMOX500C2 PO; -CAR120SR PO; +CHLO1CAP57 PO; +EXCED PO; -GUAI473L22 PO; -HYDR-3980 PO; -HYDR-4011 PO; -IBUP-1561 PO; -LORA1TAB PO; +PANT40TA3 PO; -SULF1TAB31 PO
[2018-12-03 11:59] VITALS: Ht 167.6 cm; Wt 54.4 kg
[2018-12-03 13:20] VITALS: BP 148/89; PULSE 89; RESP 16
== END 2018-12-03 13:20 | disposition home or self-care (01) ==
LOC: FTE 11:53
DX: J04.0 Acute laryngitis (principal)
CPT/HCPCS: 99283

== ENCOUNTER 2018-12-19 17:16 | Emergency (ER) | payer MEDICARE, OTHER ==
[~2018-12-19] VITALS: Ht 175.3 cm; Wt 54.4 kg
[~2018-12-19 17:16] MED LIST changes: +ALBU8.5H8 INH; +BUDE6HFA INHALATION; +GUAI120S25 PO; +LIDO20SO19 MM; +MED4DP PO
[2018-12-19 17:28] VITALS: Ht 175.3 cm; Wt 54.4 kg
[2018-12-19] MEDS ORDERED: SOD CHLORIDE 0.9% 500 ML IV STA (17:48)
[2018-12-19] MEDS ORDERED: ONDANSETRON 4 MG INJ IV STA (17:48)
[2018-12-19] MEDS ORDERED: KETOROLAC 15 MG INJ IV STA (17:48)
[2018-12-19] MEDS ORDERED: IOHEXOL 300MG/ML 150 ML BTL ONE (19:03)
[2018-12-19] MEDS ORDERED: SOD CHLORIDE 0.9% 100 ML ONE (19:03)
[2018-12-19 20:15] VITALS: BP 97/83; PULSE 100; RESP 21
== END 2018-12-19 20:30 | disposition home or self-care (01) ==
LOC: E/R 17:16
DX: C34.91 Malignant neoplasm of unspecified part of right bronchus or lung (principal); J44.9 Chronic obstructive pulmonary disease, unspecified; F17.210 Nicotine dependence, cigarettes, uncomplicated; E86.0 Dehydration
CPT/HCPCS: 70491; 71045; 80053; 81001; 83690; 84484; 85025; 93005; 96374; 96375; 99285; J1885; J2405; J7040; Q9967

== ENCOUNTER 2019-01-29 15:38 | Emergency (ER) | payer MEDICARE, OTHER ==
[~2019-01-29] VITALS: Ht 175.3 cm; Wt 53.6 kg
[~2019-01-29 15:38] MED LIST changes: -ALBU8.5H8 INH; -CHLO1CAP57 PO; -IBUP-1542 PO; -NORT25CA PO; -ONDA4TAB14 PO; -PANT40TA3 PO; -PRED20TA PO; -SER INH; -TRIF10TA PO
[2019-01-29 16:21] VITALS: Ht 175.3 cm; Wt 53.6 kg
[2019-01-29] MEDS ORDERED: morphine 4 MG/ML VIAL IV STA (16:40)
[2019-01-29] MEDS ORDERED: DEXAMETHASONE 10 MG/ML 1 ML INJ IV ONE (17:00)
[2019-01-29] MEDS ORDERED: SALINE 0.65% 45 ML NAS SPRAY NASAL ONE (17:00)
[2019-01-29] MEDS ORDERED: SOD CHLORIDE 0.9% 1,000 ML IV ONE (17:00)
[2019-01-29 18:43] VITALS: BP 142/86; PULSE 96; RESP 20
== END 2019-01-29 18:45 | disposition home or self-care (01) ==
LOC: FTE 15:38
DX: J02.9 Acute pharyngitis, unspecified (principal); J44.9 Chronic obstructive pulmonary disease, unspecified; C34.90 Malignant neoplasm of unspecified part of unspecified bronchus or lung; Z87.891 Personal history of nicotine dependence
CPT/HCPCS: 70490; 80053; 81001; 85025; J1100; J2270; J7030; 96361; 96374; 96375